=== PATIENT | female | born 1930 | race Two or more races ===

== ENCOUNTER 2017-11-07 11:35 | Observation (INO) | payer OTHER ==
--- NOTE | 2017-11-07 11:57 | PDOC ---
History of Present Illness - General History Source: Patient, Care Provider (HANDBAG OPERATOR at bedside), Family Exam Limitations: No Limitations, Dementia - History of Present Illness Initial Comments: 11/07/17 12:22 86-year-old female with history of psn-zrwxdwh-ywtydknpz diabetes and dementia at baseline presents brought in by daughter and home health aide via EMS for altered mental status this morning. Patient was in her baseline, had a normal conversation with her son last night, lives alone and was found this morning at 8 AM by her home health aide naked and with stool on her person, confused and feeling sleepy. Aide washed her up, the patient slept for about 2 hours, then awoke and was still not at her baseline so home health aide activated EMS. No recent falls or head injury, no history of recurring infections, has had very slight cough for about one to 2 weeks but nothing productive and without associated dyspnea or chest pain. Noted to be febrile on arrival to ED. Per daughter (at bedside), pt nearer to baseline now. <Rodrigo James - Last Filed: 11/07/17 14:18> <Luis Bledsoe - Last Filed: 11/07/17 16:17> - General Chief Complaint: Altered Mental Status Stated Complaint: Altered Mental Status Time Seen by Provider: 11/07/17 11:56 Past History - Past Medical History Hypercholesterolemia: Yes - Suicide/Smoking/Psychosocial Hx Smoking History: Never smoked Hx Alcohol Use: No Drug/Substance Use Hx: No <Rodrigo James - Last Filed: 11/07/17 14:18> <Luis Bledsoe - Last Filed: 11/07/17 16:17> - Past Medical History Allergies/Adverse Reactions: Allergies Allergy/AdvReac Type Severity Reaction Status Date / Time No Known Allergies Allergy Verified 11/07/17 12:12 Home Medications: Ambulatory Orders Ammonium Lactate 1 ml TP DAILY 03/15/16 Aspirin [ASA -] 81 mg PO DAILY 03/15/16 Calcium Carb/Vitamin D3/Vit K1 [Calcium + D Soft Chewable Tab] 1 each PO DAILY 03/15/16 Celecoxib [Celebrex] 200 mg PO DAILY 03/15/16 Gentamicin Sulfate [Gentak] 2.5 gm OP BID 03/15/16 Multivitamin [Poly-Vitamin] 1 tab PO DAILY 03/15/16 Pramosone 1%-1% Ointment 10 mg TP DAILY 03/15/16 Rosuvastatin Calcium [Crestor] 5 mg PO DAILY 03/15/16 Solifenacin Succinate [Vesicare -] 10 mg PO DAILY 03/15/16 Vitamin B Complex 1 each PO DAILY 03/15/16 Review of Systems - Review of Systems Constitutional: No: Chills, Fever Respiratory: Yes: Cough. No: Shortness of Breath, SOB with Exertion Cardiac (ROS): No: Chest Pain, Syncope ABD/GI: No: Diarrhea, Nausea, Vomiting : No: Dysuria Neurological: No: Headache, Tingling All Other Systems: Reviewed and Negative <Rodrigo James - Last Filed: 11/07/17 14:18> *Physical Exam - Physical Exam Comments: 11/07/17 12:35 oral temp 100.5 GENERAL: The patient is awake, alert, and following some commands but still confused, in no acute respiratory distress. Warm to touch. HEAD: Normal with no signs of trauma. EYES: PERRL, EOMI, sclera anicteric, conjunctiva clear with no pallor. ENT: oropharynx clear without exudates. Moist mucous membranes. NECK: Normal range of motion, supple without lymphadenopathy, JVD, or masses. LUNGS: Breath sounds equal, clear to auscultation bilaterally. No wheeze/ crackles. HEART: Regular rate and rhythm, normal S1 and S2 with 2/6 systolic ejection murmur. ABDOMEN: Soft/nontender/nondistended. BS wnl. No guarding or rebound. No palpable masses. No hepatosplenomegaly. EXTREMITIES: Normal range of motion, no edema. 2+ distal pulses. No cords, erythema, or tenderness. NEUROLOGICAL: Cranial nerves II through XII grossly intact. Moves all extremities with full strength. Normal speech, normal gait. PSYCH: Deferred. SKIN: Warm, Dry, no rashes or lesions noted. <Rodrigo James - Last Filed: 11/07/17 14:18> - Vital Signs Last Vital Signs Temp Pulse Resp BP Pulse Ox 100.5 F H 85 16 154/77 100 11/07/17 11:35 11/07/17 11:35 11/07/17 11:35 11/07/17 11:35 11/07/17 11:35 <Luis Bledsoe - Last Filed: 11/07/17 16:17> Heart Score/ECG Review #1 ECG reviewed & interpreted by me at: 13:23 General ECG Interpretation: Sinus Rhythm, Normal Rate (72), Normal Intervals ( qtc 435), No acute ischemic changes <Rodrigo James - Last Filed: 11/07/17 14:18> ED Treatment Course - LABORATORY CBC & Chemistry Diagram: 11/07/17 12:45 11/07/17 12:45 <Rodrigo James - Last Filed: 11/07/17 14:18> - LABORATORY CBC & Chemistry Diagram: 11/07/17 12:45 11/07/17 12:45 - ADDITIONAL ORDERS Additional order review: Laboratory Results 11/07/17 11/07/17 11/07/17 13:00 12:55 12:45 PT with INR 13.10 H INR 1.16 H PTT (Actin FS) 30.5 VBG pH POC VBG pCO2 POC VBG pO2 Mixed VBG HCO3 Sodium Potassium Chloride Carbon Dioxide Anion Gap BUN Creatinine Creat Clearance w eGFR Random Glucose Lactic Acid Calcium Total Bilirubin AST ALT Alkaline Phosphatase Troponin I Cancelled Total Protein Albumin Urine Color Yellow Urine Appearance Cloudy Urine pH 6.0 Ur Specific Foster 1.017 Urine Protein 1+ H Urine Glucose (UA) Negative Urine Ketones Negative Urine Blood Negative Urine Nitrite Negative Urine Bilirubin Negative Urine Urobilinogen Negative Ur Leukocyte Esterase 3+ H Urine WBC (Auto) 71 Urine RBC (Auto) 10 Ur Epithelial Cells Rare Urine Bacteria Rare 11/07/17 11/07/17 11/07/17 12:45 12:45 12:20 PT with INR INR PTT (Actin FS) VBG pH 7.40 POC VBG pCO2 44.4 POC VBG pO2 24.9 L Mixed VBG HCO3 26.9 H Sodium 136 Potassium 4.2 Chloride 101 Carbon Dioxide 26 Anion Gap 9 BUN 12 Creatinine 1.0 Creat Clearance w eGFR 52.69 Random Glucose 132 H Lactic Acid 1.8 Calcium 9.0 Total Bilirubin 0.6 AST 19 ALT 33 Alkaline Phosphatase 69 Troponin I < 0.02 Total Protein 7.7 Albumin 3.7 Urine Color Urine Appearance Urine pH Ur Specific Foster Urine Protein Urine Glucose (UA) Urine Ketones Urine Blood Urine Nitrite Urine Bilirubin Urine Urobilinogen Ur Leukocyte Esterase Urine WBC (Auto) Urine RBC (Auto) Ur Epithelial Cells Urine Bacteria 11/07/17 12:45 RBC 4.18 MCV 91.2 MCHC 33.7 RDW 13.2 MPV 10.0 Neutrophils % 78.1 Lymphocytes % 12.2 D Monocytes % 8.5 Eosinophils % 0.5 D Basophils % 0.7 - Medications Given in the ED: ED Medications Discontinued Medications Generic Name Dose Route Start Last Admin Trade Name Minerva PRN Reason Stop Dose Admin Acetaminophen 1,000 mg 11/07/17 12:20 11/07/17 13:20 Ofirmev Injection - IVPB 11/07/17 12:21 1,000 mg ONCE ONE Administration Sodium Chloride 500 mls @ 500 mls/hr 11/07/17 12:21 11/07/17 13:20 Normal Saline - IV 11/07/17 13:20 500 mls/hr ONCE ONE Administration <Luis Bledsoe - Last Filed: 11/07/17 16:17> Medical Decision Making - Medical Decision Making 11/07/17 12:40 86-year-old female with history of dementia presents with altered mental status this morning in the setting of fever. Likely early sepsis, no evidence of focal neurological process, will check CT head given patient was on her own overnight and the change in mental status occurred this morning. Sepsis protocol initiated Antipyretics, antibiotics as per findings CT head IV fluids Admission 11/07/17 13:28 No leukocytosis, chemistries are within normal limits, lactate pending, troponin negative. Urinalysis with 3+ leuk esterase and elevated white blood cells. We'll treat with ceftriaxone, chest x-ray with nonspecific findings, proceed with admission. 11/07/17 14:[address] head. Accepted for obs med/surg by Dr. Chavez (covering Innabi), signout given to Yfn SCHWARTZ. <Rodrigo James - Last Filed: 11/07/17 14:18> - Medical Decision Making Case discussed with Yfn Stephenson NP at 14:18. 11/07/17 16:[address] Impression: No definite interval change is identified in comparison to a prior CT exam of . Mild to moderate periventricular chronic microvascular ischemic changes are noted. <Luis Bledsoe - Last Filed: 11/07/17 16:17> *DC/Admit/Observation/Transfer - Discharge Dispostion Decision to Admit order: Yes <Rodrigo James - Last Filed: 11/07/17 14:18> - Attestations Scribe Attestion: Documentation prepared by Luis Bledsoe, acting as medical record librarian for Rodrigo James MD. <Luis Bledsoe - Last Filed: 11/07/17 16:17> Diagnosis at time of Disposition: Altered mental status Qualifiers: Altered mental status type: transient alteration of awareness Qualified Code(s) : R40.4 - Transient alteration of awareness Fever Qualifiers: Fever type: unspecified Qualified Code(s): R50.9 - Fever, unspecified UTI (urinary tract infection) Qualifiers: Urinary tract infection type: acute cystitis Hematuria presence: without hematuria Qualified Code(s): N30.00 - Acute cystitis without hematuria - Discharge Dispostion Condition at time of disposition: Fair
[2017-11-07] MEDS ORDERED: ACETAMINOPHEN 1000 MG/100 ML VIAL (NON FORMULARY) IVPB ONE (12:20)
[2017-11-07] MEDS ORDERED: SODIUM CHLORIDE 500 ML IV ONE (12:21)
[2017-11-07 12:54] LABS: BASO % 0.7 % (0-2.0); EOS % 0.5 % (0-4.5); HEMATOCRIT 38.1 % (32.4-45.2); HEMOGLOBIN 12.9 GM/dL (10.7-15.3); LYMPH % 12.2 % (8-40); MCH 30.8 pg (25.7-33.7); MCHC 33.7 g/dl (32.0-36.0); MEAN CELL VOLUME 91.2 fl (80-96); MONO % 8.5 % (3.8-10.2); NEUT % 78.1 % (42.8-82.8); PLATELET COUNT 217 K/MM3 (134-434); RBC 4.18 M/mm3 (3.60-5.2); RDW 13.2 % (11.6-15.6); WHITE BLOOD COUNT 9.9 K/mm3 (4.0-10.0)
[2017-11-07 13:01] LABS: VENOUS PC02 44.4 mmHg (38-52); VENOUS PH 7.4 (7.32-7.42); VENOUS PO2 24.9 mmHg (28-48)
[2017-11-07 13:01] LABS: URINE APPEARANCE CLOUDY; URINE BILIRUBIN NEGATIVE (<2.0 mg/dL); URINE COLOR YELLOW; URINE GLUCOSE (UA) NEGATIVE (NEGATIVE); URINE KETONE NEGATIVE (NEGATIVE); URINE NITRITE NEGATIVE (NEGATIVE); URINE UROBILINOGEN NEGATIVE mg/dL (0.2-1.0)
[2017-11-07 13:02] LABS: URINE LEUK ESTERASE 3+ (NEGATIVE); URINE PROTEIN 1+ (NEGATIVE)
[2017-11-07 13:05] LABS: EPI CELLS RARE /HPF (FEW); URINE BACTERIA RARE /hpf (NONE SEEN)
[2017-11-07 13:07] LABS: INR 1.16 (0.82-1.09); PROTHROMBIN TIME (PATIENT) 13.1 SEC (9.7-13.0)
[2017-11-07 13:09] LABS: ACTIVATED PTT 30.5 SECONDS (26.9-34.4)
[2017-11-07] MEDS ORDERED: ACETAMINOPHEN INJECTION 100 ML IVPB ONE (13:12)
[2017-11-07 13:19] LABS: ALBUMIN 3.7 g/dl (3.4-5.0); ANION GAP 9 (8-16); BLOOD UREA NITROGEN 12 mg/dL (7-18); CHLORIDE 101 mmol/L (98-107); CO2 26 mmol/L (21-32); GLUCOSE,RANDOM 132 mg/dL (74-106); POTASSIUM 4.2 mmol/L (3.5-5.1); SODIUM 136 mmol/L (136-145)
[2017-11-07 13:23] LABS: ALK PHOS 69 U/L (45-117); SGOT/AST 19 U/L (15-37); SGPT/ALT 33 U/L (12-78)
[2017-11-07 13:27] LABS: BILIRUBIN,TOTAL 0.6 mg/dL (0.2-1.0); TOT PROT 7.7 g/dl (6.4-8.2)
[2017-11-07] MEDS ORDERED: CEFTRIAXONE 1,000 MG in DEXTROSE 5%-WATER - 50 ML IVPB ONE (13:28)
[2017-11-07] MEDS ORDERED: ASPIRIN 81 MG CHEWABLE TABLETS ONE (15:40)
[2017-11-07] MEDS ORDERED: CEFTRIAXONE 1 GM/50 ML BAG ONE (15:41)
[2017-11-07] MEDS: ASPIRIN 81 MG CHEWABLE TABLETS PO SCH (15:49)
--- NOTE | 2017-11-07 16:21 | PN ---
Progress Note (short form) - Note Progress Note: ID Consult dictated UTI / possible sepsis secondary to UTI ? RLL pneumonia Toxic metabolic encephalopathy/ OBS NIDDM Pending sepsis work up empiric ceftriaxone
--- NOTE | 2017-11-07 17:03 | CONS ---
DATE OF CONSULTATION: DATE OF DICTATION: 11/07/2017 INFECTIOUS DISEASE CONSULTATION HISTORY OF PRESENT ILLNESS: The patient is an 86-year-old female, history of dementia and diabetes, evaluated for possible sepsis. History was obtained from the chart, as she cannot give a history secondary to her confusion. According to the notes, she was in her usual state of health on the evening prior to admission. On the morning of admission, November 07, 2017, she was found to be confused by the family. Apparently she had been disoriented and was found naked and soiled at home. She was brought to the emergency room where she was evaluated. Her course was complicated by low-grade fever. Cultures were obtained, and she was empirically treated with ceftriaxone. She denies any pain. On question, she denies any fever, chills, chest pain, shortness of breath, cough, sputum production. No dysuria or hematuria. No complaints of vomiting or diarrhea. PAST MEDICAL HISTORY: Positive for dementia and non-insulin dependent diabetes mellitus. ALLERGIES: No known allergies. MEDICATION: Include aspirin, Celebrex, Crestor, Vesicare. SOCIAL HISTORY: She lives at home with family members. She is a nonsmoker, nondrinker. SYSTEMS REVIEW: Neurologic: Positive for dementia. Cardiac: Negative chest pain or palpitations. Respiratory: Negative cough or sputum production. Gastrointestinal: Negative vomiting or diarrhea. Genitourinary: Negative for recent urinary tract infection. LABORATORY DATA: White count 9.9, 78 neutrophils, 12 lymphocytes, 8 monocytes, hematocrit 38.1, platelet count 217. BUN 12, creatinine 1.0. Urinalysis: 71 white cells, blood in urine cultures pending. Chest x-ray shows some increased markings at the right base. PHYSICAL EXAMINATION: General: She is awake but confused. She is in no acute distress. Vital signs: Temperature 100.5, blood pressure 154/77, pulse 88 and regular, respirations 16 per minute. HEENT: Sclerae anicteric. Poor dentition. Neck: Supple. Cardiovascular: Heart sounds S1, S2. Respiratory: Lungs diminished breath sounds at the bases bilaterally. Abdomen: Obese. Soft. Nontender. Extremities: Negative for edema. IMPRESSION: 1. Urinary tract infection, possible sepsis secondary to urinary tract infection. 2. Toxic metabolic encephalopathy. 3. Dementia. 4. Non-insulin dependent diabetes mellitus. Await sepsis workup. Empiric antibiotic coverage with ceftriaxone 2 g IV piggyback every 24 hours. Further recommendations pending sepsis workup. Aspiration precautions. Will follow. Thank you for the kind referral. BRIAN BARRETT M.D. [id number]
[2017-11-07] MEDS: MULTIVITAMINS (DAILY MVI) TABLET (FP) PO SCH (17:19)
[2017-11-07] MEDS: CELECOXIB 200 MG CAPSULE PO SCH (17:20)
[2017-11-07] MEDS ORDERED: HEPARIN NA (PORCINE) 5,000 UNITS/ML 1ML VIAL ONE (22:37)
[2017-11-07] MEDS: HEPARIN NA (PORCINE) 5,000 UNITS/ML 1ML VIAL SQ SCH (22:50)
[2017-11-07] MEDS: ROSUVASTATIN CA 5 MG TABLET (FP) PO SCH (22:50)
[2017-11-07] MEDS: GENTAMICIN 0.3% OPHTHALMIC OINTMENT 3.5 GM/TUBE OU SCH (22:50)
[2017-11-07 23:53] VITALS: BMI 26.2
[2017-11-08] MEDS: GENTAMICIN 0.3% OPHTHALMIC OINTMENT 3.5 GM/TUBE OU SCH ×2 (09:32→21:47)
--- NOTE | 2017-11-08 09:44 | EKG ---
Test Reason : Blood Pressure : / mmHG Vent. Rate : 072 BPM Atrial Rate : 072 BPM P-R Int : 000 ms QRS Dur : 072 ms QT Int : 398 ms P-R-T Axes : 000 -06 032 degrees QTc Int : 435 ms ACCELERATED JUNCTIONAL RHYTHM ABNORMAL ECG WHEN COMPARED WITH ECG OF 15-MAR-2016 10:45, JUNCTIONAL RHYTHM HAS REPLACED SINUS RHYTHM Confirmed by DINAH LOVE MD ([id number]) on 11/08/2017 9:44:00 AM Referred By: Confirmed By:DINAH LOVE MD
[2017-11-08] MEDS ORDERED: DEXTROSE 5%-WATER 100 ML IVPB ONE (10:10)
[2017-11-08] MEDS: MULTIVITAMINS (DAILY MVI) TABLET (FP) PO SCH (10:43)
[2017-11-08] MEDS: CELECOXIB 200 MG CAPSULE PO SCH (10:44)
[2017-11-08] MEDS: ASPIRIN 81 MG CHEWABLE TABLETS PO SCH (10:44)
[2017-11-08] MEDS: CEFTRIAXONE 2 GM in DEXTROSE 5%-WATER 100 ML IVPB SCH (10:44)
[2017-11-08] MEDS: HEPARIN NA (PORCINE) 5,000 UNITS/ML 1ML VIAL SQ SCH ×2 (10:44→21:48)
--- NOTE | 2017-11-08 11:33 | PN ---
Progress Note, Physician History of Present Illness: OOB in chair Offers no complaints Denies dysuria Urine described as cloudy, malodorous Pleasantly confused Temps down afebrile WBC WNL Urine c/s (-) BC no growth - Current Medication List Current Medications: Active Medications Aspirin (Asa -) 81 mg PO DAILY [facility] Last Admin: 11/08/17 10:44 Dose: 81 mg Celecoxib (Celebrex -) 200 mg PO DAILY [facility] Last Admin: 11/08/17 10:44 Dose: 200 mg Gentamicin Sulfate (Gentamicin 0.3% Eye Ointment -) 1 applic OU BID [facility] Last Admin: 11/07/17 22:50 Dose: 1 applic Heparin Sodium (Porcine) (Heparin -) 5,000 unit SQ BID [facility] Last Admin: 11/08/17 10:44 Dose: 5,000 unit Ceftriaxone Sodium 2 gm/ (Dextrose) 100 mls @ 200 mls/hr IVPB DAILY [facility]; Protocol Last Admin: 11/08/17 10:44 Dose: 200 mls/hr Multivitamins/Minerals/Vitamin C (Tab-A-Vit -) 1 tab PO DAILY [facility] Last Admin: 11/08/17 10:43 Dose: 1 tab Rosuvastatin Calcium (Crestor -) 5 mg PO HS [facility] Last Admin: 11/07/17 22:50 Dose: 5 mg - Objective Vital Signs: Vital Signs Temperature 98.5 F 11/08/17 06:00 Pulse Rate 71 11/08/17 06:00 Respiratory Rate 18 11/08/17 06:00 Blood Pressure 116/64 11/08/17 06:00 O2 Sat by Pulse Oximetry (%) 96 11/08/17 05:40 Constitutional: Yes: Obese Cardiovascular: Yes: Regular Rate and Rhythm, S1, S2 Respiratory: Yes: CTA Bilaterally Gastrointestinal: Yes: Normal Bowel Sounds, Soft, Abdomen, Obese. No: Tenderness Labs: CBC, BMP 11/07/17 12:45 11/07/17 12:45 INR, PTT INR 1.16 (0.82-1.09) H 11/07/17 13:00 Assessment/Plan UTI Toxic-metabolic encephalopathy ?OBS If stable po ceftin 500mg bid x 7d
--- NOTE | 2017-11-08 11:42 | HP ---
Admitting History and Physical - Primary Care Physician PCP: Juana Young I (Terri Chavez) - Admission Chief Complaint: AMS. UTI History of Present Illness: 86-year-old female with history of oux-vreyblr-gydljbpbh diabetes and dementia at baseline presents brought in by daughter and home health aide via EMS for altered mental status this morning. Patient was in her baseline, had a normal conversation with her son last night, lives alone and was found this morning at 8 AM by her home health aide naked and with stool on her person, confused and feeling sleepy. Aide washed her up, the patient slept for about 2 hours, then awoke and was still not at her baseline so home health aide activated EMS. No recent falls or head injury, no history of recurring infections, has had very slight cough for about one to 2 weeks but nothing productive and without associated dyspnea or chest pain. History Source: Family Member (daughter Margaret), Medical Record Limitations to Obtaining History: Clinical Condition, Poor Historian - Past Medical History PADDER CUSHION: Yes: Syncope Cardiovascular: Yes: HTN, Hyperlipdemia Endocrine: Yes: Diabetes Mellitus (type 2 DM) - Smoking History Smoking history: Never smoked Have you smoked in the past 12 months: No - Alcohol/Substance Use Hx Alcohol Use: No History of Substance Use: reports: None Home Medications - Allergies Allergies/Adverse Reactions: Allergies Allergy/AdvReac Type Severity Reaction Status Date / Time No Known Allergies Allergy Verified 11/07/17 12:12 - Home Medications Home Medications: Ambulatory Orders Ammonium Lactate 1 ml TP DAILY 03/15/16 Aspirin [ASA -] 81 mg PO DAILY 03/15/16 Calcium Carb/Vitamin D3/Vit K1 [Calcium + D Soft Chewable Tab] 1 each PO DAILY 03/15/16 Celecoxib [Celebrex] 200 mg PO DAILY 03/15/16 Gentamicin Sulfate [Gentak] 2.5 gm OP BID 03/15/16 Multivitamin [Poly-Vitamin] 1 tab PO DAILY 03/15/16 Pramosone 1%-1% Ointment 10 mg TP DAILY 03/15/16 Rosuvastatin Calcium [Crestor] 5 mg PO DAILY 03/15/16 Solifenacin Succinate [Vesicare -] 10 mg PO DAILY 03/15/16 Vitamin B Complex 1 each PO DAILY 03/15/16 Review of Systems - Review of Systems Constitutional: reports: No Symptoms Eyes: reports: No Symptoms HENT: reports: No Symptoms Neck: reports: No Symptoms Cardiovascular: reports: No Symptoms Respiratory: reports: No Symptoms Gastrointestinal: reports: No Symptoms Genitourinary: reports: No Symptoms Breasts: reports: No Symptoms Reported Musculoskeletal: reports: No Symptoms Integumentary: reports: No Symptoms Neurological: reports: Confusion Endocrine: reports: No Symptoms Hematology/Lymphatic: reports: No Symptoms Psychiatric: reports: No Symptoms Physical Examination Vital Signs: Vital Signs Temperature 98.5 F 11/08/17 06:00 Pulse Rate 71 11/08/17 06:00 Respiratory Rate 18 11/08/17 06:00 Blood Pressure 116/64 11/08/17 06:00 O2 Sat by Pulse Oximetry (%) 96 11/08/17 05:40 Constitutional: Yes: Well Nourished, No Distress, Calm Cardiovascular: Yes: Regular Rate and Rhythm Respiratory: Yes: Regular Gastrointestinal: Yes: Normal Bowel Sounds, Soft Musculoskeletal: Yes: WNL Extremities: Yes: WNL Edema: No Peripheral Pulses WNL: Yes Neurological: Yes: Alert, Pre-Existing Deficit Psychiatric: Yes: Alert Labs: CBC, BMP 11/07/17 12:45 11/07/17 12:45 Problem List - Problems (1) Altered mental status Assessment/Plan: -Improved as per daughter, but not back to baseline -It is unclear whether pt has underlying dementia, daughter states pt is forgetfull but has never been told that pt has Alzheimer's Code(s): R41.82 - ALTERED MENTAL STATUS, UNSPECIFIED Qualifiers: Altered mental status type: transient alteration of awareness Qualified Code(s): R40.4 - Transient alteration of awareness (2) Fever Assessment/Plan: -Afebrile this AM -Tylenol 650 mg po Q6H PRN for fever >100.0F Code(s): R50.9 - FEVER, UNSPECIFIED Qualifiers: Fever type: unspecified Qualified Code(s): R50.9 - Fever, unspecified (3) UTI (urinary tract infection) Assessment/Plan: -IV abx -UC no growth -ID on board Code(s): N39.0 - URINARY TRACT INFECTION, SITE NOT SPECIFIED Qualifiers: Urinary tract infection type: acute cystitis Hematuria presence: without hematuria Qualified Code(s): N30.00 - Acute cystitis without hematuria Assessment/Plan see problem list dvt prophylaxis If cleared by ID, will dc home in AM on PO abx
[2017-11-08 12:16] LABS: BASO % 0.9 % (0-2.0); EOS % 2.9 % (0-4.5); HEMATOCRIT 38.3 % (32.4-45.2); HEMOGLOBIN 12.8 GM/dL (10.7-15.3); LYMPH % 29.3 % (8-40); MCH 30.8 pg (25.7-33.7); MCHC 33.5 g/dl (32.0-36.0); MEAN CELL VOLUME 91.8 fl (80-96); MEAN PLT VOLUME 10.3 fl (7.5-11.1); MONO % 12.3 % (3.8-10.2); NEUT % 54.6 % (42.8-82.8); PLATELET COUNT 213 K/MM3 (134-434); RBC 4.17 M/mm3 (3.60-5.2); RDW 13.5 % (11.6-15.6); WHITE BLOOD COUNT 5.3 K/mm3 (4.0-10.0)
[2017-11-08 12:33] LABS: MAGNESIUM 1.8 mg/dL (1.8-2.4)
[2017-11-08] MEDS: ROSUVASTATIN CA 5 MG TABLET (FP) PO SCH (21:47)
[2017-11-09 08:56] LABS: ALBUMIN 3.2 g/dl (3.4-5.0); ALK PHOS 59 U/L (45-117); ANION GAP 9 (8-16); BILIRUBIN,TOTAL 0.4 mg/dL (0.2-1.0); BLOOD UREA NITROGEN 10 mg/dL (7-18); CALCIUM 8.6 mg/dL (8.5-10.1); CHLORIDE 103 mmol/L (98-107); CO2 26 mmol/L (21-32); CREATININE 0.8 mg/dL (0.55-1.02); GLUCOSE,RANDOM 174 mg/dL (74-106); POTASSIUM 4.6 mmol/L (3.5-5.1); SGOT/AST 20 U/L (15-37); SGPT/ALT 30 U/L (12-78); SODIUM 138 mmol/L (136-145); TOT PROT 6.8 g/dl (6.4-8.2)
[2017-11-09] MEDS ORDERED: DEXTROSE 5%-WATER 100 ML IVPB ONE (10:49)
--- NOTE | 2017-11-09 10:51 | PN ---
Progress Note, Physician Chief Complaint: AMS UTI History of Present Illness: NAD, sitting in a chair wants to go home alert and oriented - Current Medication List Current Medications: Active Medications Aspirin (Asa -) 81 mg PO DAILY [facility] Last Admin: 11/08/17 10:44 Dose: 81 mg Celecoxib (Celebrex -) 200 mg PO DAILY [facility] Last Admin: 11/08/17 10:44 Dose: 200 mg Gentamicin Sulfate (Gentamicin 0.3% Eye Ointment -) 1 applic OU BID [facility] Last Admin: 11/08/17 21:47 Dose: 1 applic Heparin Sodium (Porcine) (Heparin -) 5,000 unit SQ BID [facility] Last Admin: 11/08/17 21:48 Dose: 5,000 unit Ceftriaxone Sodium 2 gm/ (Dextrose) 100 mls @ 200 mls/hr IVPB DAILY [facility]; Protocol Last Admin: 11/08/17 10:44 Dose: 200 mls/hr Multivitamins/Minerals/Vitamin C (Tab-A-Vit -) 1 tab PO DAILY [facility] Last Admin: 11/08/17 10:43 Dose: 1 tab Rosuvastatin Calcium (Crestor -) 5 mg PO HS [facility] Last Admin: 11/08/17 21:47 Dose: 5 mg - Objective Vital Signs: Vital Signs Temperature 98.5 F 11/09/17 00:49 Pulse Rate 65 11/09/17 00:49 Respiratory Rate 18 11/09/17 00:49 Blood Pressure 124/60 11/09/17 00:49 O2 Sat by Pulse Oximetry (%) 95 11/08/17 22:00 Constitutional: Yes: Well Nourished, No Distress, Calm Cardiovascular: Yes: Regular Rate and Rhythm Respiratory: Yes: Regular Musculoskeletal: Yes: WNL Extremities: Yes: WNL Edema: No Peripheral Pulses WNL: Yes Neurological: Yes: Alert, Oriented Psychiatric: Yes: Alert, Oriented Labs: CBC, BMP 11/08/17 11:47 11/09/17 06:15 INR, PTT INR 1.16 (0.82-1.09) H 11/07/17 13:00 Problem List - Problems (1) Altered mental status Assessment/Plan: -back to her baseline Code(s): R41.82 - ALTERED MENTAL STATUS, UNSPECIFIED Qualifiers: Altered mental status type: transient alteration of awareness Qualified Code(s): R40.4 - Transient alteration of awareness (2) Fever Assessment/Plan: -Afebrile this AM -Tylenol 650 mg po Q6H PRN for fever >100.0F Code(s): R50.9 - FEVER, UNSPECIFIED Qualifiers: Fever type: unspecified Qualified Code(s): R50.9 - Fever, unspecified (3) UTI (urinary tract infection) Assessment/Plan: -IV abx---> ceftin 500 mg po BID x 7 days -UC no growth -ID on board Code(s): N39.0 - URINARY TRACT INFECTION, SITE NOT SPECIFIED Qualifiers: Urinary tract infection type: acute cystitis Hematuria presence: without hematuria Qualified Code(s): N30.00 - Acute cystitis without hematuria Assessment/Plan see problem list Spoke to daughter Margaret about discharge, in agreement.
[2017-11-09] MEDS: CEFTRIAXONE 2 GM in DEXTROSE 5%-WATER 100 ML IVPB SCH (10:56)
[2017-11-09] MEDS: MULTIVITAMINS (DAILY MVI) TABLET (FP) PO SCH (10:57)
[2017-11-09] MEDS: HEPARIN NA (PORCINE) 5,000 UNITS/ML 1ML VIAL SQ SCH ×3 (10:57→21:56)
[2017-11-09] MEDS: GENTAMICIN 0.3% OPHTHALMIC OINTMENT 3.5 GM/TUBE OU SCH ×2 (10:58→21:31)
[2017-11-09] MEDS: CELECOXIB 200 MG CAPSULE PO SCH (10:58)
[2017-11-09] MEDS: ASPIRIN 81 MG CHEWABLE TABLETS PO SCH (10:58)
--- NOTE | 2017-11-09 12:24 | DS ---
Physical Examination Vital Signs: Vital Signs Temperature 98.5 F 11/09/17 09:00 Pulse Rate 72 11/09/17 09:00 Respiratory Rate 18 11/09/17 09:00 Blood Pressure 141/65 11/09/17 09:00 O2 Sat by Pulse Oximetry (%) 95 11/08/17 22:00 Constitutional: Yes: Well Nourished, No Distress, Calm Gastrointestinal: Yes: Normal Bowel Sounds, Soft Musculoskeletal: Yes: WNL Extremities: Yes: WNL Edema: No Peripheral Pulses WNL: Yes Neurological: Yes: Alert, Oriented Psychiatric: Yes: Alert, Oriented Labs: CBC, BMP 11/08/17 11:47 11/09/17 06:15 Discharge Summary Reason For Visit: UTI,AMS Current Active Problems Altered mental status (Acute) Fever (Acute) UTI (urinary tract infection) (Acute) Hospital Course: 86-year-old female with history of iex-mjesgup-nfynbzqsu diabetes and dementia at baseline presents brought in by daughter and home health aide via EMS for altered mental status this morning. Patient was in her baseline, had a normal conversation with her son last night, lives alone and was found this morning at 8 AM by her home health aide naked and with stool on her person, confused and feeling sleepy. Aide washed her up, the patient slept for about 2 hours, then awoke and was still not at her baseline so home health aide activated EMS. No recent falls or head injury, no history of recurring infections, has had very slight cough for about one to 2 weeks but nothing productive and without associated dyspnea or chest pain. Condition: Stable - Instructions Referrals: Terri Chavez MD [Primary Care Provider] - Disposition: HOME - Home Medications Comprehensive Discharge Medication List: Ambulatory Orders Ammonium Lactate 1 ml TP DAILY 03/15/16 Aspirin [ASA -] 81 mg PO DAILY 03/15/16 Calcium Carb/Vitamin D3/Vit K1 [Calcium + D Soft Chewable Tab] 1 each PO DAILY 03/15/16 Celecoxib [Celebrex] 200 mg PO DAILY 03/15/16 Gentamicin Sulfate [Gentak] 2.5 gm OP BID 03/15/16 Multivitamin [Poly-Vitamin] 1 tab PO DAILY 03/15/16 Pramosone 1%-1% Ointment 10 mg TP DAILY 03/15/16 Rosuvastatin Calcium [Crestor] 5 mg PO DAILY 03/15/16 Solifenacin Succinate [Vesicare -] 10 mg PO DAILY 03/15/16 Vitamin B Complex 1 each PO DAILY 03/15/16 Multivitamins [Multivit ([facility] Formulary)] 1 tab PO DAILY tab 11/08/17 Cefuroxime Axetil [Ceftin -] 500 mg PO BID #14 tablet 11/09/17
[2017-11-09] MEDS ORDERED: PT OWN MED DRAWER 7, Y5N ONE (20:27)
[2017-11-09] MEDS: ROSUVASTATIN CA 5 MG TABLET (FP) PO SCH (21:30)
[2017-11-09] MEDS ORDERED: CEFUROXIME AXETIL 500 MG TABLET PO SCH (22:00)
[2017-11-10 05:36] VITALS: BP 146/84; PULSE 85; TEMP 98.2
== END 2017-11-10 07:04 | disposition home or self-care (01) ==
LOC: JER 11:35 → JERBED 14:20 → J7W 23:57
PROVIDERS: ADMIT Family Medicine; ATTEND Family Medicine
PROC: 3E03329 Introduction of Other Anti-infective into Peripheral Vein, Percutaneous Approach (ICD-10-PCS; principal; 2017-11-07)
PROC: 3E033NZ Introduction of Analgesics, Hypnotics, Sedatives into Peripheral Vein, Percutaneous Approach (ICD-10-PCS; 2017-11-07)
PROC: 3E0337Z Introduction of Electrolytic and Water Balance Substance into Peripheral Vein, Percutaneous Approach (ICD-10-PCS; 2017-11-07)
DX: N30.00 Acute cystitis without hematuria (principal); G92 Toxic encephalopathy; R40.4 Transient alteration of awareness; R50.9 Fever, unspecified; F03.90 Unspecified dementia, unspecified severity, without behavioral disturbance, psychotic disturbance, mood disturbance, and anxiety; E11.9 Type 2 diabetes mellitus without complications; Z79.82 Long term (current) use of aspirin
CPT/HCPCS: 36415; 70450-TC; 71045-TC-FY; 80053; 81003; 81015; 82607; 82803; 82962; 83036; 83605; 83735; 84439; 84443; 84484; 85025; 85610; 85730; 87040; 87086; 93005; 93010; 96361; 96365; 96375; 97116-GP; 97161-GP; 99283-25; G0378; J0131; J1644

== ENCOUNTER 2017-11-14 13:29 | Inpatient (IN) | payer OTHER ==
--- NOTE | 2017-11-14 13:39 | PDOC ---
History of Present Illness - General Chief Complaint: Altered Mental Status Stated Complaint: Altered Mental Status Time Seen by Provider: 11/14/17 13:38 - History of Present Illness Initial Comments: 11/14/17 13:39 Ms. 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 Patient was recently admitted 11/07-11/09 for similar presentation and found to have UTI for which she was treated with Cefuroxime (still undergoing treatment). Patient has no focal complaints and is alert however will not respond or responds to aids questions with a laugh only. Allergies: NKDA Past History - Past Medical History Allergies/Adverse Reactions: Allergies Allergy/AdvReac Type Severity Reaction Status Date / Time No Known Allergies Allergy Verified 11/14/17 13:42 Home Medications: Ambulatory Orders Ammonium Lactate 1 ml TP DAILY 03/15/16 Aspirin [ASA -] 81 mg PO DAILY 03/15/16 Calcium Carb/Vitamin D3/Vit K1 [Calcium + D Soft Chewable Tab] 1 each PO DAILY 03/15/16 Celecoxib [Celebrex] 200 mg PO DAILY 03/15/16 Gentamicin Sulfate [Gentak] 2.5 gm OP BID 03/15/16 Multivitamin [Poly-Vitamin] 1 tab PO DAILY 03/15/16 Pramosone 1%-1% Ointment 10 mg TP DAILY 03/15/16 Rosuvastatin Calcium [Crestor] 5 mg PO DAILY 03/15/16 Solifenacin Succinate [Vesicare -] 10 mg PO DAILY 03/15/16 Vitamin B Complex 1 each PO DAILY 03/15/16 Multivitamins [Multivit ([facility] Formul[facility])] 1 tab PO DAILY tab 11/08/17 Cefuroxime Axetil [Ceftin -] 500 mg PO BID #14 tablet 11/09/17 COPD: No Dementia: Yes Hypercholesterolemia: Yes - Suicide/Smoking/Psychosocial Hx Smoking History: Never smoked Have you smoked in the past 12 months: No Hx Alcohol Use: No Drug/Substance Use Hx: No Substance Use Type: None Review of Systems - Review of Systems Comments:: 11/14/17 13:39 Unable to obtain further. *Physical Exam - Physical Exam Comments: 11/14/17 13:39 GENERAL: Awake, altered, in no acute distress HEAD: No signs of trauma, normocephalic, atraumatic EYES: PERRLA, EOMI, sclera anicteric, conjunctiva clear ENT: Auricles normal inspection, hearing grossly normal, nares patent, oropharynx clear without exudates. Moist mucosa NECK: Normal ROM, supple, no lymphadenopathy, JVD, or masses LUNGS: No distress, speaks full sentences, clear to auscultation bilaterally HEART: Regular rate and rhythm, normal S1 and S2, no murmurs, rubs or gallops, peripheral pulses normal and equal bilaterally. ABDOMEN: Soft, nontender, normoactive bowel sounds. No guarding, no rebound. No masses EXTREMITIES: Normal inspection, Normal range of motion, no edema. No clubbing or cyanosis. NEUROLOGICAL: +Unable to assess. SKIN: Warm, Dry, normal turgor, no rashes or lesions noted. ED Treatment Course - LABORATORY CBC & Chemistry Diagram: 11/14/17 15:38 11/14/17 14:17 Medical Decision Making - Medical Decision Making 11/14/17 14:26 Ms. Constantino is an 86 yo female w/ pmh as described who presents for evaluation of altered mental status. Sepsis workup started as source of AMS unknown. 11/14/17 16:22 Patient labs grossly wnl. Cause of AMS unknown at this time. PCP paged for admission for further evaluation. 11/14/17 16:35 Discussed with MAGNETIC RESONANCE IMAGING COORDINATOR of Dr. Chavez. Will admit for evaluation. *DC/Admit/Observation/Transfer Diagnosis at time of Disposition: Altered mental status Qualifiers: Altered mental status type: unspecified Qualified Code(s): R41.82 - Altered mental status, unspecified - Discharge Dispostion Decision to Admit order: Yes - Referrals Referrals: Treri Chavez MD [Primary Care Provider] - - Patient Instructions - Post Discharge Activity
[2017-11-14 14:39] LABS: VENOUS PC02 31.7 mmHg (38-52); VENOUS PH 7.44 (7.32-7.42)
[2017-11-14 14:40] LABS: CHLORIDE 104 mmol/L (98-107); POTASSIUM 4.8 mmol/L (3.5-5.1); SODIUM 137 mmol/L (136-145)
--- NOTE | 2017-11-14 14:43 | PDOC ---
Attending Attestation - Resident Resident Name: EricangelanealChava - ED Attending Attestation I have performed the following: I have examined & evaluated the patient, The case was reviewed & discussed with the resident, I agree w/resident's findings & plan - HPI HPI: 11/14/17 14:40 86y/o F presents with altered mental status, not recognizing family and not speaking. Almost identical admission last week in setting of UTI but urine cultures negative. She was treated with abx and improved, but worsened again over past 24h. - Physicial Exam PE: 11/14/17 14:42 VSS alert and following commands, nad not speaking, atraumatic s1s2 rrr, ctab abd soft neuro nonfocal - Medical Decision Making 11/14/17 14:42 86-year-old female returns to the emergency department with altered mental status/lethargy, recent UTI though urine cultures negative. Afebrile here with normal vital signs, no evidence of trauma and neurological exam is nonfocal. Question metabolic/infectious, question dementia, less likely acute ischemic neurological event. Labs, urinalysis EKG, chest x-ray Likely admission, may need extended services at home or placement
--- NOTE | 2017-11-14 14:51 | EKG ---
Test Reason : Blood Pressure : / mmHG Vent. Rate : 082 BPM Atrial Rate : 082 BPM P-R Int : 170 ms QRS Dur : 078 ms QT Int : 382 ms P-R-T Axes : 036 -12 039 degrees QTc Int : 446 ms NORMAL SINUS RHYTHM MINIMAL VOLTAGE CRITERIA FOR LVH, MAY BE NORMAL VARIANT BORDERLINE ECG Confirmed by MD Gerard, Cornel ([id number]) on 11/14/2017 2:50:44 PM Referred By: Confirmed By:Cornel Gee MD
[2017-11-14 15:10] LABS: ALBUMIN 3.7 g/dl (3.4-5.0); ALK PHOS 60 U/L (45-117); ANION GAP 10 (8-16); BILIRUBIN,TOTAL 0.6 mg/dL (0.2-1.0); BLOOD UREA NITROGEN 18 mg/dL (7-18); CALCIUM 9.1 mg/dL (8.5-10.1); CO2 24 mmol/L (21-32); CREATININE 1.1 mg/dL (0.55-1.02); GLUCOSE,RANDOM 115 mg/dL (74-106); SGOT/AST 25 U/L (15-37); SGPT/ALT 50 U/L (12-78); TOT PROT 7.4 g/dl (6.4-8.2)
[2017-11-14 16:02] LABS: URINE APPEARANCE CLEAR; URINE BILIRUBIN NEGATIVE (<2.0 mg/dL); URINE COLOR YELLOW; URINE GLUCOSE (UA) NEGATIVE (NEGATIVE); URINE KETONE NEGATIVE (NEGATIVE); URINE LEUK ESTERASE NEGATIVE (NEGATIVE); URINE NITRITE NEGATIVE (NEGATIVE); URINE PROTEIN NEGATIVE (NEGATIVE); URINE UROBILINOGEN NEGATIVE mg/dL (0.2-1.0)
[2017-11-14 16:03] LABS: BASO % 0.6 % (0-2.0); EOS % 2.1 % (0-4.5); HEMATOCRIT 40.4 % (32.4-45.2); HEMOGLOBIN 13.4 GM/dL (10.7-15.3); LYMPH % 23.2 % (8-40); MCH 30.6 pg (25.7-33.7); MCHC 33.1 g/dl (32.0-36.0); MEAN CELL VOLUME 92.5 fl (80-96); MONO % 10.1 % (3.8-10.2); PLATELET COUNT 234 K/MM3 (134-434); RBC 4.37 M/mm3 (3.60-5.2); RDW 13.3 % (11.6-15.6); WHITE BLOOD COUNT 7.6 K/mm3 (4.0-10.0)
[2017-11-14 16:15] LABS: INR 1.13 (0.82-1.09); PROTHROMBIN TIME (PATIENT) 12.8 SEC (9.7-13.0)
[2017-11-14 16:18] LABS: ACTIVATED PTT 32.8 SECONDS (25.2-36.5)
[2017-11-14] MEDS ORDERED: SODIUM CHLORIDE 1,000 ML IV STA (16:18)
[2017-11-14] MEDS ORDERED: ROSUVASTATIN CA 5 MG TABLET (FP) PO SCH (22:00)
[2017-11-15] MEDS ORDERED: PT OWN MED DRAWER 7, Y5N ONE (09:24)
--- NOTE | 2017-11-15 09:56 | CONSULT ---
Consult - text type - Consultation Consultation Note: Neurology History of Present Illness Ms. 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 Patient was recently admitted 11/07-11/09 for similar presentation and found to have UTI for which she was treated with Cefuroxime (still undergoing treatment). Patient has no focal complaints but not answering questions appropriately. Is awake and alert and interactive but not coherent. Did not have imaging of head yet, will order CT head to evaluate. Past History - Past Medical History Allergies/Adverse Reactions: Allergies Allergy/AdvReac Type Severity Reaction Status Date / Time No Known Allergies Allergy Verified 11/14/17 13:42 Home Medications: Ambulatory Orders Ammonium Lactate 1 ml TP DAILY 03/15/16 Aspirin [ASA -] 81 mg PO DAILY 03/15/16 Calcium Carb/Vitamin D3/Vit K1 [Calcium + D Soft Chewable Tab] 1 each PO DAILY 03/15/16 Celecoxib [Celebrex] 200 mg PO DAILY 03/15/16 Gentamicin Sulfate [Gentak] 2.5 gm OP BID 03/15/16 Multivitamin [Poly-Vitamin] 1 tab PO DAILY 03/15/16 Pramosone 1%-1% Ointment 10 mg TP DAILY 03/15/16 Rosuvastatin Calcium [Crestor] 5 mg PO DAILY 03/15/16 Solifenacin Succinate [Vesicare -] 10 mg PO DAILY 03/15/16 Vitamin B Complex 1 each PO DAILY 03/15/16 Multivitamins [Multivit ([facility] Form[facility])] 1 tab PO DAILY tab 11/08/17 Cefuroxime Axetil [Ceftin -] 500 mg PO BID #14 tablet 11/09/17 COPD: No Dementia: Yes Hypercholesterolemia: Yes - Suicide/Smoking/Psychosocial Hx Smoking History: Never smoked Have you smoked in the past 12 months: No Hx Alcohol Use: No Drug/Substance Use Hx: No Substance Use Type: None Review of Systems Unable to obtain further. *Physical Exam GENERAL: Awake, altered, in no acute distress HEAD: No signs of trauma, normocephalic, atraumatic EYES: PERRLA, EOMI, sclera anicteric, conjunctiva clear ENT: Auricles normal inspection, hearing grossly normal, nares patent, oropharynx clear without exudates. Moist mucosa NECK: Normal ROM, supple, no lymphadenopathy, JVD, or masses LUNGS: No distress, speaks full sentences, clear to auscultation bilaterally HEART: Regular rate and rhythm, normal S1 and S2, no murmurs, rubs or gallops, peripheral pulses normal and equal bilaterally. ABDOMEN: Soft, nontender, normoactive bowel sounds. No guarding, no rebound. No masses EXTREMITIES: Normal inspection, Normal range of motion, no edema. No clubbing or cyanosis. NEUROLOGICAL: CN intact, moves extremities equally, sensory intact, gait deferred SKIN: Warm, Dry, normal turgor, no rashes or lesions noted. CBCD WBC 7.6 K/mm3 (4.0-10.0) D 11/14/17 15:38 RBC 4.37 M/mm3 (3.60-5.2) 11/14/17 15:38 Hgb 13.4 GM/dL (10.7-15.3) 11/14/17 15:38 Hct 40.4 % (32.4-45.2) 11/14/17 15:38 MCV 92.5 fl (80-96) 11/14/17 15:38 MCHC 33.1 g/dl (32.0-36.0) 11/14/17 15:38 RDW 13.3 % (11.6-15.6) 11/14/17 15:38 Plt Count 234 K/MM3 (134-434) 11/14/17 15:38 MPV 10.0 fl (7.5-11.1) 11/14/17 15:38 CMP Sodium 137 mmol/L (136-145) 11/14/17 14:17 Potassium 4.8 mmol/L (3.5-5.1) 11/14/17 14:17 Chloride 104 mmol/L (98-107) 11/14/17 14:17 Carbon Dioxide 24 mmol/L (21-32) 11/14/17 14:17 Anion Gap 10 (8-16) 11/14/17 14:17 BUN 18 mg/dL (7-18) 11/14/17 14:17 Creatinine 1.1 mg/dL (0.55-1.02) H 11/14/17 14:17 Creat Clearance w eGFR 47.21 (>60) 11/14/17 14:17 Random Glucose 115 mg/dL (74-106) H 11/14/17 14:17 Calcium 9.1 mg/dL (8.5-10.1) 11/14/17 14:17 Total Bilirubin 0.6 mg/dL (0.2-1.0) D 11/14/17 14:17 AST 25 U/L (15-37) 11/14/17 14:17 ALT 50 U/L (12-78) 11/14/17 14:17 Alkaline Phosphatase 60 U/L (45-117) 11/14/17 14:17 Total Protein 7.4 g/dl (6.4-8.2) 11/14/17 14:17 Albumin 3.7 g/dl (3.4-5.0) 11/14/17 14:17 CARDIAC ENZYMES Troponin I < 0.02 ng/ml (0.00-0.05) 11/14/17 14:17 CT head ordered Medical Decision Making Ms. 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 Patient was recently admitted 11/07-11/09 for similar presentation and found to have UTI for which she was treated with Cefuroxime (still undergoing treatment). Patient has no focal complaints but not answering questions appropriately. Is awake and alert and interactive but not coherent. Did not have imaging of head yet, will order CT head to evaluate. Possibly toxic metabolic in setting of infection. Continue medical workup, monitor glucose, maintain eugylcemic range. Monitor infection, treat underlying etiology. COntinue hydration, close monitoring.
[2017-11-15] MEDS ORDERED: CELECOXIB 200 MG CAPSULE PO SCH (10:00)
[2017-11-15] MEDS ORDERED: MULTIVITAMINS (DAILY MVI) TABLET (FP) PO SCH (10:00)
[2017-11-15] MEDS ORDERED: ASPIRIN 81 MG CHEWABLE TABLETS PO SCH (10:00)
--- NOTE | 2017-11-15 11:00 | HP ---
Admitting History and Physical - Primary Care Physician PCP: Juana Young I (Terri Chavez) - Admission Chief Complaint: AMS History of Present Illness: Ms. 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 Patient was recently admitted 11/07-11/09 for similar presentation and found to have UTI for which she was treated with Cefuroxime (still undergoing treatment). Patient has no focal complaints and is alert however will not respond or responds to aids questions with a laugh only. She was seen last week for similar complaints, Her Head CT was negative. Her UC was negative for UTI but she responded to IV rocephin last admission. Her UA is Negative, UC pending Labs unremarkable Seen by Neurology Repeat CT head and MRI brain is pending. 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 Cardiovascular: Yes: HTN, Hyperlipdemia Endocrine: Yes: Diabetes Mellitus (type 2 DM) - Smoking History Smoking history: Never smoked Have you smoked in the past 12 months: No - Alcohol/Substance Use Hx Alcohol Use: No History of Substance Use: reports: None Home Medications - Allergies Allergies/Adverse Reactions: Allergies Allergy/AdvReac Type Severity Reaction Status Date / Time No Known Allergies Allergy Verified 11/14/17 13:42 - Home Medications Home Medications: Ambulatory Orders Ammonium Lactate 1 ml TP DAILY 03/15/16 Aspirin [ASA -] 81 mg PO DAILY 03/15/16 Calcium Carb/Vitamin D3/Vit K1 [Calcium + D Soft Chewable Tab] 1 each PO DAILY 03/15/16 Celecoxib [Celebrex] 200 mg PO DAILY 03/15/16 Gentamicin Sulfate [Gentak] 2.5 gm OP BID 03/15/16 Multivitamin [Poly-Vitamin] 1 tab PO DAILY 03/15/16 Rosuvastatin Calcium [Crestor] 5 mg PO DAILY 03/15/16 Solifenacin Succinate [Vesicare -] 10 mg PO DAILY 03/15/16 Vitamin B Complex 1 each PO DAILY 03/15/16 Multivitamins [Multivit ([facility] Formul[facility])] 1 tab PO DAILY tab 11/08/17 Cefuroxime Axetil [Ceftin -] 500 mg PO BID #14 tablet 11/09/17 Review of Systems - Review of Systems Constitutional: reports: No Symptoms Eyes: reports: No Symptoms HENT: reports: No Symptoms Neck: reports: No Symptoms Cardiovascular: reports: No Symptoms Respiratory: reports: No Symptoms Gastrointestinal: reports: No Symptoms Genitourinary: reports: No Symptoms Breasts: reports: No Symptoms Reported Musculoskeletal: reports: No Symptoms Integumentary: reports: No Symptoms Neurological: reports: Confusion Endocrine: reports: No Symptoms Hematology/Lymphatic: reports: No Symptoms Psychiatric: reports: No Symptoms Physical Examination Vital Signs: Vital Signs Temperature 97.8 F 11/15/17 05:57 Pulse Rate 72 11/15/17 05:57 Respiratory Rate 18 11/15/17 05:57 Blood Pressure 150/75 11/15/17 05:57 O2 Sat by Pulse Oximetry (%) 97 11/15/17 05:57 Constitutional: Yes: Well Nourished, No Distress, Calm Cardiovascular: Yes: Regular Rate and Rhythm Respiratory: Yes: Regular Gastrointestinal: Yes: Normal Bowel Sounds, Soft Musculoskeletal: Yes: Muscle Weakness Edema: No Peripheral Pulses WNL: Yes Neurological: Yes: Alert, Confusion Psychiatric: Yes: Alert Labs: CBC, BMP 11/14/17 15:38 11/14/17 14:17 Problem List - Problems (1) Altered mental status Assessment/Plan: -Unable to answer questions appropriately -UA negative -UC/BC pending -Afebrile -CT heand and MRI brain pending -Bladder scan to see any urinary retention -Not sure if she had been using vesicare at home---> causing urinary retention? 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
[2017-11-15] MEDS: HEPARIN NA (PORCINE) 5,000 UNITS/ML 1ML VIAL SQ SCH (21:59)
[2017-11-15] MEDS: ROSUVASTATIN CA 10 MG TABLET (FP) PO SCH (22:00)
[2017-11-15] MEDS: ASPIRIN/DIPYRIDAMOLE 25 MG/200 MG CAPSULE (FP) PO SCH (22:00)
[2017-11-16] MEDS: HEPARIN NA (PORCINE) 5,000 UNITS/ML 1ML VIAL SQ SCH ×3 (05:21→21:45)
[2017-11-16 06:59] LABS: BASO % 0.6 % (0-2.0); EOS % 3.4 % (0-4.5); HEMATOCRIT 38.8 % (32.4-45.2); HEMOGLOBIN 13.2 GM/dL (10.7-15.3); LYMPH % 23.3 % (8-40); MEAN CELL VOLUME 91.1 fl (80-96); MEAN PLT VOLUME 10.1 fl (7.5-11.1); MONO % 11.4 % (3.8-10.2); NEUT % 61.3 % (42.8-82.8); PLATELET COUNT 224 K/MM3 (134-434); RBC 4.26 M/mm3 (3.60-5.2); RDW 12.9 % (11.6-15.6); WHITE BLOOD COUNT 6.5 K/mm3 (4.0-10.0)
[2017-11-16 08:40] LABS: CHLORIDE 103 mmol/L (98-107); POTASSIUM 4.2 mmol/L (3.5-5.1); SODIUM 138 mmol/L (136-145)
[2017-11-16 09:00] LABS: ALBUMIN 3.6 g/dl (3.4-5.0); ALK PHOS 60 U/L (45-117); ANION GAP 12 (8-16); BILIRUBIN,TOTAL 0.7 mg/dL (0.2-1.0); BLOOD UREA NITROGEN 13 mg/dL (7-18); CALCIUM 8.9 mg/dL (8.5-10.1); CHOLESTEROL 133 mg/dL (50-200); CO2 23 mmol/L (21-32); CREATININE 0.8 mg/dL (0.55-1.02); GLUCOSE,RANDOM 145 mg/dL (74-106); HDL CHOLESTEROL 40 mg/dL (40-60); SGOT/AST 28 U/L (15-37); SGPT/ALT 44 U/L (12-78); TOT PROT 7.4 g/dl (6.4-8.2); TRIGLYCERIDES 129 mg/dL (35-160)
--- NOTE | 2017-11-16 09:06 | PN ---
Progress Note (short form) - Note Progress Note: Neurology History of Present Illness Ms. 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 Patient was recently admitted 11/07-11/09 for similar presentation and found to have UTI for which she was treated with Cefuroxime (still undergoing treatment). She did not appear to have focal deficits but with aphasia. Completed CT head yesterday and MRI brain with large size CVA noted, temporal, parietal and frontal. Discussed with nurse. Switched ASA to aggrenox. Increased statin. Transfered to stroke unit recommended. Carotid Doppler and echo ordered. Telemetry monitoring. Cardiology consult recommended, possibly embolic given size and location. Not in TPA window. Discussed with primary as well. At bedside with immigration case manager today, probably will need rehab. Active Medications Dipyridamole/Aspirin (Aggrenox -) 1 combo PO BID [facility] Last Admin: 11/15/17 22:00 Dose: Not Given Heparin Sodium (Porcine) (Heparin -) 5,000 unit SQ TID [facility] Last Admin: 11/16/17 05:21 Dose: 5,000 unit Multivitamins/Minerals/Vitamin C (Tab-A-Vit -) 1 tab PO DAILY [facility] Rosuvastatin Calcium (Crestor -) 10 mg PO HS [facility] Last Admin: 11/15/17 22:00 Dose: Not Given *Physical Exam Vital Signs Temperature 98.8 F 11/16/17 05:42 Pulse Rate 70 11/16/17 05:42 Respiratory Rate 18 11/16/17 05:42 Blood Pressure 132/68 11/16/17 05:42 O2 Sat by Pulse Oximetry (%) 95 11/15/17 21:00 GENERAL: Awake, altered, in no acute distress HEAD: No signs of trauma, normocephalic, atraumatic EYES: PERRLA, EOMI, sclera anicteric, conjunctiva clear ENT: Auricles normal inspection, hearing grossly normal, nares patent, oropharynx clear without exudates. Moist mucosa NECK: Normal ROM, supple, no lymphadenopathy, JVD, or masses LUNGS: No distress, speaks full sentences, clear to auscultation bilaterally HEART: Regular rate and rhythm, normal S1 and S2, no murmurs, rubs or gallops, peripheral pulses normal and equal bilaterally. ABDOMEN: Soft, nontender, normoactive bowel sounds. No guarding, no rebound. No masses EXTREMITIES: Normal inspection, Normal range of motion, no edema. No clubbing or cyanosis. NEUROLOGICAL: Aphasia noted, moves extremities equally, sensory intact, not following full commands, gait deferred SKIN: Warm, Dry, normal turgor, no rashes or lesions noted. CBCD WBC 6.5 K/mm3 (4.0-10.0) 11/16/17 06:00 RBC 4.26 M/mm3 (3.60-5.2) 11/16/17 06:00 Hgb 13.2 GM/dL (10.7-15.3) 11/16/17 06:00 Hct 38.8 % (32.4-45.2) 11/16/17 06:00 MCV 91.1 fl (80-96) 11/16/17 06:00 MCHC 34.0 g/dl (32.0-36.0) 11/16/17 06:00 RDW 12.9 % (11.6-15.6) 11/16/17 06:00 Plt Count 224 K/MM3 (134-434) 11/16/17 06:00 MPV 10.1 fl (7.5-11.1) 11/16/17 06:00 CMP Sodium 138 mmol/L (136-145) 11/16/17 06:00 Potassium 4.2 mmol/L (3.5-5.1) 11/16/17 06:00 Chloride 103 mmol/L (98-107) 11/16/17 06:00 Carbon Dioxide 23 mmol/L (21-32) 11/16/17 06:00 Anion Gap 12 (8-16) 11/16/17 06:00 BUN 13 mg/dL (7-18) 11/16/17 06:00 Creatinine 0.8 mg/dL (0.55-1.02) 11/16/17 06:00 Creat Clearance w eGFR > 60 (>60) 11/16/17 06:00 Random Glucose 145 mg/dL (74-106) H 11/16/17 06:00 Calcium 8.9 mg/dL (8.5-10.1) 11/16/17 06:00 Total Bilirubin 0.7 mg/dL (0.2-1.0) 11/16/17 06:00 AST 28 U/L (15-37) 11/16/17 06:00 ALT 44 U/L (12-78) 11/16/17 06:00 Alkaline Phosphatase 60 U/L (45-117) 11/16/17 06:00 Total Protein 7.4 g/dl (6.4-8.2) 11/16/17 06:00 Albumin 3.6 g/dl (3.4-5.0) 11/16/17 06:00 CARDIAC ENZYMES Troponin I < 0.02 ng/ml (0.00-0.05) 11/14/17 14:17 CT head, MRI brain reviewed Medical Decision Making Ms. 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 Patient was recently admitted 11/07-11/09 for similar presentation and found to have UTI for which she was treated with Cefuroxime (still undergoing treatment). MRI brain reviewed Ct head reviewed Carotid Doppler Echo Cardiology evaluation Monitor blood pressure, goal <160/90 for now, <130/80 as outpatient ASA switched to Aggernox LDL pending, continue statin PT/OT Rehab placement DVT ppx
--- NOTE | 2017-11-16 10:27 | CON.CARD ---
Consult Consult Specialty:: Cardiology Referred by:: Juana Young MD Reason for Consultation:: Acute stroke - History of Present Illness Chief Complaint: Altered mental status History of Present Illness: Patient is an 85 year old female [place] with underlying history of type 2 diabetes mellitus, borderline hypertension, hypercholesterolemia, neurocradiogenic syncope, dementia referred for altered sensorium worse than baseline. Patient was recently admitted 11/07-11/09 for similar presentation and found to have UTI for which she was treated with Cefuroxime (still undergoing treatment). She does appear to have focal deficits, is awake and alert and interactive, but not coherent and has expressive aphasia. Completed CT head yesterday and MRI brain with large size CVA noted, temporal, parietal and frontal. Switched ASA to aggrenox. Increased statin. Transfered to stroke unit recommended. Carotid Doppler and echo ordered. Telemetry monitoring, holter ordered. Cardiology consult requested, possibly embolic given size and location. Not in TPA window, probably will need rehab. 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 Cardio/Vascular: Yes: HTN, Hyperlipdemia Endocrine: Yes: Diabetes Mellitus (type 2 DM) - Alcohol/Substance Use Hx Alcohol Use: No History of Substance Use: reports: None - Smoking History Smoking history: Never smoked Have you smoked in the past 12 months: No Home Medications - Allergies Allergies/Adverse Reactions: Allergies Allergy/AdvReac Type Severity Reaction Status Date / Time No Known Allergies Allergy Verified 11/14/17 13:42 - Home Medications Home Medications: Ambulatory Orders Ammonium Lactate 1 ml TP DAILY 03/15/16 Aspirin [ASA -] 81 mg PO DAILY 03/15/16 Calcium Carb/Vitamin D3/Vit K1 [Calcium + D Soft Chewable Tab] 1 each PO DAILY 03/15/16 Celecoxib [Celebrex] 200 mg PO DAILY 03/15/16 Gentamicin Sulfate [Gentak] 2.5 gm OP BID 03/15/16 Multivitamin [Poly-Vitamin] 1 tab PO DAILY 03/15/16 Rosuvastatin Calcium [Crestor] 5 mg PO DAILY 03/15/16 Solifenacin Succinate [Vesicare -] 10 mg PO DAILY 03/15/16 Vitamin B Complex 1 each PO DAILY 03/15/16 Multivitamins [Multivit ([facility] Formul[facility])] 1 tab PO DAILY tab 11/08/17 Cefuroxime Axetil [Ceftin -] 500 mg PO BID #14 tablet 11/09/17 Review of Systems Unable to obtain ROS, reason: Expressive aphasia - Review of Systems Neurological: reports: Change in Speech Vital Signs: Vital Signs Temperature 98.8 F 11/16/17 05:42 Pulse Rate 70 11/16/17 05:42 Respiratory Rate 18 11/16/17 05:42 Blood Pressure 132/68 11/16/17 05:42 O2 Sat by Pulse Oximetry (%) 95 11/15/17 21:00 Constitutional: Yes: No Distress, Calm Neck: Yes: Supple Respiratory: Yes: Regular, CTA Bilaterally Gastrointestinal: Yes: Normal Bowel Sounds, Soft Cardiovascular: Yes: Regular Rate and Rhythm JVD: No Carotid Bruit: No Heart Sounds: Yes: S1, S2 Edema: No - Other Data Labs, Other Data: CBC, BMP 11/16/17 06:00 11/16/17 06:00 INR, PTT INR 1.13 (0.82-1.09) 11/14/17 15:38 NSR @ 82 min criteria LVH Ejection Fraction %: LVEF > or = 40 % Imaging - Results Chest X-ray: Report Reviewed (NAD) Problem List - Problems (1) Acute ischemic stroke Code(s): I63.9 - CEREBRAL INFARCTION, UNSPECIFIED (2) HTN (hypertension) Code(s): I10 - ESSENTIAL (PRIMARY) HYPERTENSION Qualifiers: Hypertension type: essential hypertension Qualified Code(s): I10 - Essential (primary) hypertension (3) Hypercholesterolemia Code(s): E78.0 - PURE HYPERCHOLESTEROLEMIA * DO NOT USE * (4) Expressive aphasia Code(s): R47.01 - APHASIA Assessment/Plan 03/16/2016 Transthoracic echocardiography Normal LV systolic function, mild TR, trace MR 03/16/2016 Carotid U/S: Atherosclerotic plaque w/o stenosis 11/15/2017 Brain MRI: Large acute/subacute left temporal, left posterior frontal and left parietal lobes, multiple lacunar infarcts left frontal lobe 1. Expressive aphasia, acute stroke suspect embolic etiology 2. HTN/HCVD 3. Type 2 diabetes mellitus 4. Hypercholesterolemia 5. H/o syncope with typical prodromal sxs, likely neurocardiogenic PLAN: 1. No episodes of PAF on telemetry thus far, will need half-way arrhythmia monitor if telemetry monitoring unrevealing for PAF 2. Continue Aggrenox 1 bid, Crestor 10 qhs, KATHLEEN-I/ARB as hemodynamics tolerate 3. F/u echo and carotid u/s, consider SONIA to exclude PHYLLIS thrombus 4. DVT prophylaxis, PT, speech therapy 5. Thank you for consultative opportunity
[2017-11-16] MEDS: ASPIRIN/DIPYRIDAMOLE 25 MG/200 MG CAPSULE (FP) PO SCH ×2 (11:31→21:45)
[2017-11-16] MEDS: MULTIVITAMINS (DAILY MVI) TABLET (FP) PO SCH (11:32)
--- NOTE | 2017-11-16 12:41 | CONSULT ---
Admitting History and Physical - Primary Care Physician PCP: Terri Chavez - Admission History of Present Illness: Patient is an 85 year old female [place] descent with underlying history of type 2 diabetes mellitus, borderline hypertension, hypercholesterolemia, neurocradiogenic syncope, dementia referred for altered sensorium worse than baseline. Patient was recently admitted 11/07-11/09 for similar presentation and found to have UTI MRI brain with large size CVA noted, temporal, parietal and frontal. This is my first consult with this pt. Per EMR:Per Daughter patient's baseline is A&Ox3 with some mild dementia and able to ambulate, swallow, and care for self with minimal assist from a HOT KNIFE CUTTER at home (for several hours/several days a week). 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 Cardiovascular: Yes: HTN, Hyperlipdemia Endocrine: Yes: Diabetes Mellitus (type 2 DM) - Smoking History Smoking history: Never smoked Have you smoked in the past 12 months: No - Alcohol/Substance Use Hx Alcohol Use: No History of Substance Use: reports: None History - Admission Reason For Visit: AMS - General Mental Status: Awake and Alert, Confused Attention: Mild Impairment, Moderate Impairment Ability to Follow Directions: Poor Head/Neck Control: Fair - Hearing Hearing: Normal Speech Evaluation - Communication Primary Language: [id number] Communication: Yes: Aphasia Oral Expression Ability: Yes: Severe Impairment - Speech Production Able to Make Needs Known: Yes: Severely Impaired Intelligibility: Yes: Severely Impaired (precise but unintellible, perseverative jargon) - Speech Characteristics Voice Loudness: Normal Voice Pitch: Yes: Normal Voice Phonatory-based Quality: Yes: Breathy Speech Pattern: Impaired Speech Clarity: < 25% Nasal Resonance: Normal Articulation: Yes: Precise - Language/Auditory Comprehension Observation: Able to respond to yes/no queries: No, Yes/No Confusion: Yes, Comprehends Conversational Speech: No (occasionally with gesture) - Language/Verbal Expression Aphasia: Yes: Impaired Repetition, Paraphrasic Errors, Neologisms, Apraxia Able to Respond to Simple Queries: Yes: Severely Impaired Able to Communicate Wants and Needs: Yes: Severely Impaired Functional Communication Status: Yes: Severely Impaired - Memory/Perception Hemaniopsia: Yes: Right (suspected) Visual Neglect: Yes: Right (suspected) - Swallow Evaluation/Bedside Assessment Current Nutritional Intake: NPO Oral Secretions: Yes: WFL Facial Symmetry at Rest: Symmetrical Facial Symmetry on Retraction: Symmetrical Against Resistance Opening: Normal Against Resistance Closing: Normal Smile: Normal Lingual Movement: Unable to Perform Lingual Speed of Movement: Normal Laryngeal Movement: Able to Palpate Labial Seal: WFL Oral Prep Time: WFL A-P Transit: WFL Pocketing: None Timing of Swallow: Delayed Coughing/Throat Clear: No (risk with liquids due to oropharyngeal dyscoordination.) Change in Voice: No Recommendations - Speech Evaluation, Impression/Plan Impression: Severe Receptive/Expressive Aphasia. Euphoric with no awareness or frustration. Follows rare commands paired with gesture. Unable to follow simple spoken 1 stage commands. Yes/No responses are unreliable. Verbal, unintelligible jargon with occasional intelligible words eg OK, repeated Francoise, One. Rare spontaneous functional language eg Hello/Goodbye. Laughs frequently. No dysarthria. Oral dyscoordination/Apraxia advesely affects PO intake. Swallow is brisk. No dysarthria. Poor functional communication. - Disposition Discharge to: Rehabilitation Center - Dysphagia Impressions/Plan Dysphagia Impressions: Risk of Aspiration *Silent aspiration: cannot be R/O at bedside Dysphagia Treatment Plan: Small Bites, Chin Tuck/Down, Trial Feedings, Safe Rate , 1/2 tsp. at a time, Elevate HOB during feed Recommendations: Other (Monitor tolerance) - Recommendations Diet Consistency: Dysphagia Pureed Medication Administration: Crushed with applesauce Liquids: [place] Thick, Other (on tsp./ no straws.) Supplement: Magic Cup, Other (Ensure compact)
--- NOTE | 2017-11-16 14:28 | PN ---
Progress Note, Physician - Current Medication List Current Medications: Active Medications Dipyridamole/Aspirin (Aggrenox -) 1 combo PO BID [facility] Last Admin: 11/16/17 11:31 Dose: Not Given Heparin Sodium (Porcine) (Heparin -) 5,000 unit SQ TID [facility] Last Admin: 11/16/17 14:20 Dose: 5,000 unit Multivitamins/Minerals/Vitamin C (Tab-A-Vit -) 1 tab PO DAILY [facility] Last Admin: 11/16/17 11:32 Dose: Not Given Rosuvastatin Calcium (Crestor -) 10 mg PO HS [facility] Last Admin: 11/15/17 22:00 Dose: Not Given - Objective Vital Signs: Vital Signs Temperature 98.8 F 11/16/17 05:42 Pulse Rate 70 11/16/17 05:42 Respiratory Rate 18 11/16/17 05:42 Blood Pressure 132/68 11/16/17 05:42 O2 Sat by Pulse Oximetry (%) 95 11/15/17 21:00 Labs: CBC, BMP 11/16/17 06:00 11/16/17 06:00 INR, PTT INR 1.13 (0.82-1.09) 11/14/17 15:38 Problem List - Problems (1) Acute ischemic stroke Assessment/Plan: MRI shows large area of acute/subacute infarct of left frontal,posterior frontal and parietal lobe agreenox [facility] cardiology echo and carotid doppler gulshan dale to see patient Code(s): I63.9 - CEREBRAL INFARCTION, UNSPECIFIED
[2017-11-16] MEDS: ROSUVASTATIN CA 10 MG TABLET (FP) PO SCH (21:43)
[2017-11-17] MEDS: HEPARIN NA (PORCINE) 5,000 UNITS/ML 1ML VIAL SQ SCH ×3 (06:00→21:14)
[2017-11-17 08:46] LABS: BASO % 0.5 % (0-2.0); EOS % 0.8 % (0-4.5); HEMATOCRIT 41.9 % (32.4-45.2); LYMPH % 16.6 % (8-40); MCH 30.7 pg (25.7-33.7); MCHC 33.5 g/dl (32.0-36.0); MEAN CELL VOLUME 91.7 fl (80-96); MEAN PLT VOLUME 10.9 fl (7.5-11.1); MONO % 8.2 % (3.8-10.2); NEUT % 73.9 % (42.8-82.8); PLATELET COUNT 246 K/MM3 (134-434); RBC 4.57 M/mm3 (3.60-5.2); RDW 13.1 % (11.6-15.6); WHITE BLOOD COUNT 9.2 K/mm3 (4.0-10.0)
--- NOTE | 2017-11-17 09:36 | PN ---
Progress Note (short form) - Note Progress Note: Neurology History of Present Illness Ms. Constantino is an 86 yo female w/ pmh of NIDDM and baseline dementia BIBA after home based assistant noticed her to be more altered than usual. Patient was recently admitted 11/07-11/09 for similar presentation and found to have UTI for which she was treated with Cefuroxime (still undergoing treatment). She did not appear to have focal deficits but with aphasia. Completed CT head and MRI brain with large size CVA noted, temporal, parietal and frontal. Discussed with nurse. Switched ASA to aggrenox. Increased statin. Transfered to stroke unit recommended. Carotid Doppler and echo ordered. Telemetry monitoring. Cardiology consult recommended, possibly embolic given size and location. Not in TPA window. Completed Echo which did not show significant dysfunction. Carotids completed but did not visualize L carotids, R sided without HD significant stenosis. Would consider repeat Carotid Dopplers to better visualize L side. CTA can also be considered but would require contrast but may be able to be avoided as patient more cooperative today. LDL reviewed, 79 at this time. Active Medications Dipyridamole/Aspirin (Aggrenox -) 1 combo PO BID [facility] Last Admin: 11/16/17 21:45 Dose: 1 combo Heparin Sodium (Porcine) (Heparin -) 5,000 unit SQ TID [facility] Last Admin: 11/17/17 06:00 Dose: 5,000 unit Multivitamins/Minerals/Vitamin C (Tab-A-Vit -) 1 tab PO DAILY [facility] Last Admin: 11/16/17 11:32 Dose: Not Given Rosuvastatin Calcium (Crestor -) 10 mg PO HS [facility] Last Admin: 11/16/17 21:43 Dose: 10 mg *Physical Exam Vital Signs Temperature 98.3 F 11/17/17 06:00 Pulse Rate 86 11/17/17 06:00 Respiratory Rate 20 11/17/17 06:00 Blood Pressure 137/90 11/17/17 06:00 O2 Sat by Pulse Oximetry (%) 95 11/16/17 21:00 GENERAL: Awake, altered, in no acute distress HEAD: No signs of trauma, normocephalic, atraumatic EYES: PERRLA, EOMI, sclera anicteric, conjunctiva clear ENT: Auricles normal inspection, hearing grossly normal, nares patent, oropharynx clear without exudates. Moist mucosa NECK: Normal ROM, supple, no lymphadenopathy, JVD, or masses LUNGS: No distress, speaks full sentences, clear to auscultation bilaterally HEART: Regular rate and rhythm, normal S1 and S2, no murmurs, rubs or gallops, peripheral pulses normal and equal bilaterally. ABDOMEN: Soft, nontender, normoactive bowel sounds. No guarding, no rebound. No masses EXTREMITIES: Normal inspection, Normal range of motion, no edema. No clubbing or cyanosis. NEUROLOGICAL: Aphasia noted, moves extremities equally, sensory intact, not following full commands, gait deferred SKIN: Warm, Dry, normal turgor, no rashes or lesions noted. CBCD WBC 9.2 K/mm3 (4.0-10.0) D 11/17/17 06:30 RBC 4.57 M/mm3 (3.60-5.2) 11/17/17 06:30 Hgb 14.0 GM/dL (10.7-15.3) 11/17/17 06:30 Hct 41.9 % (32.4-45.2) 11/17/17 06:30 MCV 91.7 fl (80-96) 11/17/17 06:30 MCHC 33.5 g/dl (32.0-36.0) 11/17/17 06:30 RDW 13.1 % (11.6-15.6) 11/17/17 06:30 Plt Count 246 K/MM3 (134-434) 11/17/17 06:30 MPV 10.9 fl (7.5-11.1) 11/17/17 06:30 CMP Sodium 138 mmol/L (136-145) 11/16/17 06:00 Potassium 4.2 mmol/L (3.5-5.1) 11/16/17 06:00 Chloride 103 mmol/L (98-107) 11/16/17 06:00 Carbon Dioxide 23 mmol/L (21-32) 11/16/17 06:00 Anion Gap 12 (8-16) 11/16/17 06:00 BUN 13 mg/dL (7-18) 11/16/17 06:00 Creatinine 0.8 mg/dL (0.55-1.02) 11/16/17 06:00 Creat Clearance w eGFR > 60 (>60) 11/16/17 06:00 Random Glucose 145 mg/dL (74-106) H 11/16/17 06:00 Calcium 8.9 mg/dL (8.5-10.1) 11/16/17 06:00 Total Bilirubin 0.7 mg/dL (0.2-1.0) 11/16/17 06:00 AST 28 U/L (15-37) 11/16/17 06:00 ALT 44 U/L (12-78) 11/16/17 06:00 Alkaline Phosphatase 60 U/L (45-117) 11/16/17 06:00 Total Protein 7.4 g/dl (6.4-8.2) 11/16/17 06:00 Albumin 3.6 g/dl (3.4-5.0) 11/16/17 06:00 CARDIAC ENZYMES Troponin I < 0.02 ng/ml (0.00-0.05) 11/14/17 14:17 CT head, MRI brain reviewed Echo reviewed Carotid Doppler reviewed Medical Decision Making Ms. Constantino is an 86 yo female w/ pmh of NIDDM and baseline dementia BIBA after home based assistant noticed her to be more altered than usual. Patient was recently admitted 11/07-11/09 for similar presentation and found to have UTI for which she was treated with Cefuroxime (still undergoing treatment). MRI brain reviewed Ct head reviewed Carotid Doppler reviewed, consider repeat Echo reviewed, Cardiology follow up Monitor blood pressure, goal <160/90 for now, <130/80 as outpatient ASA switched to Aggernox LDL reviewed, 79, continue statin PT/OT Rehab placement DVT ppx
[2017-11-17] MEDS ORDERED: PT OWN MED DRAWER 7, Y5N ONE ×2 (10:02→18:54)
[2017-11-17] MEDS: MULTIVITAMINS (DAILY MVI) TABLET (FP) PO SCH (10:08)
[2017-11-17] MEDS: ASPIRIN/DIPYRIDAMOLE 25 MG/200 MG CAPSULE (FP) PO SCH ×2 (10:10→21:14)
[2017-11-17] MEDS ORDERED: HALOPERIDOL LACTATE 5 MG/ML IM ONE (11:11)
--- NOTE | 2017-11-17 11:15 | PN ---
Progress Note, Physician Chief Complaint: ASLEEP AGITATED PER NURSE EVENTS AND NOTES REVIEWED MRI REVIEWED CAROTID DOPPLER LEFT SIDE UNABLE TO VIEW PER RADIOLOGY B/C OF PATIENTS MOVEMENTS - Current Medication List Current Medications: Active Medications Dipyridamole/Aspirin (Aggrenox -) 1 combo PO BID [facility] Last Admin: 11/17/17 10:10 Dose: 1 combo Heparin Sodium (Porcine) (Heparin -) 5,000 unit SQ TID [facility] Last Admin: 11/17/17 06:00 Dose: 5,000 unit Multivitamins/Minerals/Vitamin C (Tab-A-Vit -) 1 tab PO DAILY [facility] Last Admin: 11/17/17 10:08 Dose: 1 tab Rosuvastatin Calcium (Crestor -) 10 mg PO HS [facility] Last Admin: 11/16/17 21:43 Dose: 10 mg - Objective Vital Signs: Vital Signs Temperature 98.5 F 11/17/17 10:00 Pulse Rate 80 11/17/17 10:00 Respiratory Rate 19 11/17/17 10:00 Blood Pressure 132/68 11/17/17 10:00 O2 Sat by Pulse Oximetry (%) 95 11/17/17 09:00 Constitutional: Yes: Mild Distress Eyes: Yes: Other Cardiovascular: Yes: Regular Rate and Rhythm Respiratory: Yes: WNL Genitourinary: Yes: Incontinence Musculoskeletal: Yes: Other Edema: No Integumentary: Yes: WNL Wound/Incision: Yes: Clean/Dry Neurological: Yes: Unresponsive ...Motor Strength: RUE, RLE Psychiatric: Yes: Agitated Labs: CBC, BMP 11/17/17 06:30 INR, PTT INR 1.13 (0.82-1.09) 11/14/17 15:38 Problem List - Problems (1) Acute ischemic stroke Code(s): I63.9 - CEREBRAL INFARCTION, UNSPECIFIED (2) Altered mental status Code(s): R41.82 - ALTERED MENTAL STATUS, UNSPECIFIED Qualifiers: Altered mental status type: unspecified Qualified Code(s): R41.82 - Altered mental status, unspecified (3) Expressive aphasia Code(s): R47.01 - APHASIA (4) Diabetes mellitus Code(s): E11.9 - TYPE 2 DIABETES MELLITUS WITHOUT COMPLICATIONS Qualifiers: Diabetes mellitus type: type 2 Diabetes mellitus senior care insulin use: without senior care use Diabetes mellitus complication status: without complication Qualified Code(s): E11.9 - Type 2 diabetes mellitus without complications Assessment/Plan SWALLOW EVAL SPEECH PATHOLOGY CARDIO/NEURO EVAL MONITOR TELEMETRY R/O AFIB CAROTID DOPPLER REPEAT TO VIEW LEFT SIDE AGGRENOX/ASA HEPARIN SQ MONITOR BGM IVF
--- NOTE | 2017-11-17 11:20 | PN ---
Progress Note, Physician History of Present Illness: Continued expressive aphasia. No PAF on telemetry. - Current Medication List Current Medications: Active Medications Dipyridamole/Aspirin (Aggrenox -) 1 combo PO BID [facility] Last Admin: 11/17/17 10:10 Dose: 1 combo Haloperidol (Haldol Injection (Fast Acting) -) 5 mg IM ONCE ONE Stop: 11/17/17 11:12 Heparin Sodium (Porcine) (Heparin -) 5,000 unit SQ TID [facility] Last Admin: 11/17/17 06:00 Dose: 5,000 unit Multivitamins/Minerals/Vitamin C (Tab-A-Vit -) 1 tab PO DAILY [facility] Last Admin: 11/17/17 10:08 Dose: 1 tab Rosuvastatin Calcium (Crestor -) 10 mg PO HS [facility] Last Admin: 11/16/17 21:43 Dose: 10 mg - Objective Vital Signs: Vital Signs Temperature 98.5 F 11/17/17 10:00 Pulse Rate 80 11/17/17 10:00 Respiratory Rate 19 11/17/17 10:00 Blood Pressure 132/68 11/17/17 10:00 O2 Sat by Pulse Oximetry (%) 95 11/17/17 09:00 Constitutional: Yes: No Distress, Calm, Thin Neck: Yes: Supple Cardiovascular: Yes: Regular Rate and Rhythm Respiratory: Yes: Regular, Diminished Gastrointestinal: Yes: Normal Bowel Sounds, Soft Edema: No Labs: CBC, BMP 11/17/17 06:30 INR, PTT INR 1.13 (0.82-1.09) 11/14/17 15:38 - ....Imaging EKG: Report Reviewed (Tele: No PAF) Problem List - Problems (1) Acute ischemic stroke Code(s): I63.9 - CEREBRAL INFARCTION, UNSPECIFIED (2) HTN (hypertension) Code(s): I10 - ESSENTIAL (PRIMARY) HYPERTENSION Qualifiers: Hypertension type: essential hypertension Qualified Code(s): I10 - Essential (primary) hypertension (3) Hypercholesterolemia Code(s): E78.0 - PURE HYPERCHOLESTEROLEMIA * DO NOT USE * (4) Expressive aphasia Code(s): R47.01 - APHASIA Assessment/Plan 11/16/2017 Echo: Normal biventricular size and fxn, LVEF 65-70%, tr AR 11/16/2017 Carotid U/S: LICA poorly visualized, TIMOTHY no stenosis 03/16/2016 Transthoracic echocardiography Normal LV systolic function, mild TR, trace MR 03/16/2016 Carotid U/S: Atherosclerotic plaque w/o stenosis 11/15/2017 Brain MRI: Large acute/subacute left temporal, left posterior frontal and left parietal lobes, multiple lacunar infarcts left frontal lobe 1. Expressive aphasia, acute stroke suspect embolic etiology 2. HTN/HCVD 3. Type 2 diabetes mellitus 4. Hypercholesterolemia 5. H/o syncope with typical prodromal sxs, likely neurocardiogenic PLAN: 1. No episodes of PAF on telemetry thus far, will need penitentiary arrhythmia monitor if telemetry monitoring unrevealing for PAF 2. Continue Aggrenox 1 bid, Crestor 10 qhs, KATHLEEN-I/ARB as hemodynamics tolerate 3. Repeat carotid u/s, consider SONIA to exclude PHYLLIS thrombus 4. DVT prophylaxis, PT, speech therapy
[2017-11-17 12:23] LABS: CHLORIDE 106 mmol/L (98-107); POTASSIUM 4.7 mmol/L (3.5-5.1); SODIUM 139 mmol/L (136-145)
[2017-11-17 12:51] LABS: ALBUMIN 3.8 g/dl (3.4-5.0); ALK PHOS 68 U/L (45-117); ANION GAP 13 (8-16); BILIRUBIN,TOTAL 0.6 mg/dL (0.2-1.0); BLOOD UREA NITROGEN 13 mg/dL (7-18); CALCIUM 9.1 mg/dL (8.5-10.1); CO2 20 mmol/L (21-32); GLUCOSE,RANDOM 148 mg/dL (74-106); SGOT/AST 25 U/L (15-37); SGPT/ALT 41 U/L (12-78); TOT PROT 7.8 g/dl (6.4-8.2)
[2017-11-17] MEDS: ROSUVASTATIN CA 10 MG TABLET (FP) PO SCH (21:14)
[2017-11-17] MEDS ORDERED: INSULIN (NOVOLOG) ASPART 100 UNITS/ML 10ML VIAL ONE (21:16)
[2017-11-17] MEDS: INSULIN SLIDING SCALE (NOVOLOG) 1 VIAL SQ SCH (21:17)
[2017-11-18] MEDS: NYSTATIN 500,000 UNITS/5 ML SUSPENSION PO SCH ×4 (00:44→17:15)
[2017-11-18] MEDS: HEPARIN NA (PORCINE) 5,000 UNITS/ML 1ML VIAL SQ SCH ×3 (05:33→21:20)
[2017-11-18] MEDS: INSULIN SLIDING SCALE (NOVOLOG) 1 VIAL SQ SCH ×4 (07:04→21:20)
[2017-11-18] MEDS: MULTIVITAMINS (DAILY MVI) TABLET (FP) PO SCH (09:12)
[2017-11-18] MEDS: ASPIRIN/DIPYRIDAMOLE 25 MG/200 MG CAPSULE (FP) PO SCH ×2 (09:12→21:20)
--- NOTE | 2017-11-18 10:06 | PN ---
Progress Note, Physician Chief Complaint: Events noted Currently verbal, but with underlying dementia and confusion History of Present Illness: Patient was seen and examined. Awake. Chart was reviewed Denies chest pain or SOB - Current Medication List Current Medications: Active Medications Dipyridamole/Aspirin (Aggrenox -) 1 combo PO BID [facility] Last Admin: 11/18/17 09:12 Dose: 1 combo Heparin Sodium (Porcine) (Heparin -) 5,000 unit SQ TID [facility] Last Admin: 11/18/17 05:33 Dose: 5,000 unit Insulin Aspart (Novolog Vial Sliding Scale -) 1 vial SQ ACHS [facility]; Protocol Last Admin: 11/18/17 07:04 Dose: 2 units Multivitamins/Minerals/Vitamin C (Tab-A-Vit -) 1 tab PO DAILY [facility] Last Admin: 11/18/17 09:12 Dose: 1 tab Nystatin (Nystatin Oral Suspension -) 500,000 units PO Q6HPO [facility] Last Admin: 11/18/17 05:33 Dose: 500,000 units Rosuvastatin Calcium (Crestor -) 10 mg PO HS [facility] Last Admin: 11/17/17 21:14 Dose: 10 mg - Objective Vital Signs: Vital Signs Temperature 97.5 F L 11/18/17 01:52 Pulse Rate 79 11/18/17 01:52 Respiratory Rate 18 11/18/17 01:52 Blood Pressure 122/66 11/18/17 01:52 O2 Sat by Pulse Oximetry (%) 96 11/17/17 21:00 Neck: Yes: Supple Cardiovascular: Yes: Regular Rate and Rhythm, S1, S2 Respiratory: Yes: Diminished Gastrointestinal: Yes: Normal Bowel Sounds, Soft. No: Tenderness Edema: No Labs: CBC, BMP 11/17/17 06:30 11/17/17 06:30 INR, PTT INR 1.13 (0.82-1.09) 11/14/17 15:38 Problem List - Problems (1) Acute ischemic stroke Code(s): I63.9 - CEREBRAL INFARCTION, UNSPECIFIED (2) Expressive aphasia Code(s): R47.01 - APHASIA (3) Diabetes mellitus Code(s): E11.9 - TYPE 2 DIABETES MELLITUS WITHOUT COMPLICATIONS Qualifiers: Diabetes mellitus type: type 2 Diabetes mellitus chcf insulin use: without chcf use Diabetes mellitus complication status: without complication Qualified Code(s): E11.9 - Type 2 diabetes mellitus without complications (4) HTN (hypertension) Code(s): I10 - ESSENTIAL (PRIMARY) HYPERTENSION Qualifiers: Hypertension type: essential hypertension Qualified Code(s): I10 - Essential (primary) hypertension (5) Hypercholesterolemia Code(s): E78.0 - PURE HYPERCHOLESTEROLEMIA * DO NOT USE * (6) Syncope and collapse Code(s): R55 - SYNCOPE AND COLLAPSE Assessment/Plan 1. Expressive aphasia, acute stroke suspect embolic etiology 2. HTN/HCVD 3. Type 2 diabetes mellitus 4. Hypercholesterolemia 5. 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 No episodes of PAF on telemetry, but will need heater engineer helper arrhythmia monitor if telemetry monitoring unrevealing for PAF 2. Continue Aggrenox 1 bid, Crestor 10 qhs and consider KATHLEEN-I/ARB as hemodynamics tolerate 3. Consider SONIA if consent is obtained to exclude PHYLLIS thrombus, then decision regarding whether she would need anticoagulation should be decided 4. DVT prophylaxis, PT, speech therapy Trip Villanueva MD
--- NOTE | 2017-11-18 11:34 | PN ---
Progress Note, Physician - Current Medication List Current Medications: Active Medications Dipyridamole/Aspirin (Aggrenox -) 1 combo PO BID [facility] Last Admin: 11/18/17 09:12 Dose: 1 combo Heparin Sodium (Porcine) (Heparin -) 5,000 unit SQ TID [facility] Last Admin: 11/18/17 05:33 Dose: 5,000 unit Insulin Aspart (Novolog Vial Sliding Scale -) 1 vial SQ ACHS [facility]; Protocol Last Admin: 11/18/17 07:04 Dose: 2 units Multivitamins/Minerals/Vitamin C (Tab-A-Vit -) 1 tab PO DAILY [facility] Last Admin: 11/18/17 09:12 Dose: 1 tab Nystatin (Nystatin Oral Suspension -) 500,000 units PO Q6HPO [facility] Last Admin: 11/18/17 05:33 Dose: 500,000 units Rosuvastatin Calcium (Crestor -) 10 mg PO HS [facility] Last Admin: 11/17/17 21:14 Dose: 10 mg - Objective Vital Signs: Vital Signs Temperature 98.1 F 11/18/17 10:00 Pulse Rate 82 11/18/17 10:00 Respiratory Rate 18 11/18/17 10:01 Blood Pressure 119/68 11/18/17 10:00 O2 Sat by Pulse Oximetry (%) 96 11/18/17 10:01 Labs: CBC, BMP 11/17/17 06:30 11/17/17 06:30 INR, PTT INR 1.13 (0.82-1.09) 11/14/17 15:38 Problem List - Problems (1) Acute ischemic stroke Assessment/Plan: MRI shows large area of acute/subacute infarct of left frontal,posterior frontal and parietal lobe agreenox [facility] cardiology on board echo and carotid doppler noted--rpt eh dale to see patient Code(s): I63.9 - CEREBRAL INFARCTION, UNSPECIFIED (2) Diabetes mellitus Assessment/Plan: -bgm -endo Code(s): E11.9 - TYPE 2 DIABETES MELLITUS WITHOUT COMPLICATIONS Qualifiers: Diabetes mellitus type: type 2 Diabetes mellitus mcfp insulin use: without mcfp use Diabetes mellitus complication status: without complication Qualified Code(s): E11.9 - Type 2 diabetes mellitus without complications (3) HTN (hypertension) Assessment/Plan: Vital Signs Period Temp Pulse Resp BP Sys/Mcgraw Pulse Ox Last 24 Hr 97 F-98.1 F 54-86 18-20 116-147/66-79 96-96 Code(s): I10 - ESSENTIAL (PRIMARY) HYPERTENSION Qualifiers: Hypertension type: essential hypertension Qualified Code(s): I10 - Essential (primary) hypertension
--- NOTE | 2017-11-18 11:53 | PN ---
Progress Note (short form) - Note Progress Note: Neurology History of Present Illness Ms. Constantino is an 86 yo female w/ pmh of NIDDM and baseline dementia BIBA after home demonstration agent noticed her to be more altered than usual. Patient was recently admitted 11/07-11/09 for similar presentation and found to have UTI for which she was treated with Cefuroxime (still undergoing treatment). She did not appear to have focal deficits but with aphasia. Completed CT head and MRI brain with large size CVA noted, temporal, parietal and frontal. Discussed with nurse. Switched ASA to aggrenox. Increased statin. Transfered to stroke unit recommended. Carotid Doppler and echo ordered. Telemetry monitoring. Cardiology consult recommended, possibly embolic given size and location. Not in TPA window. Completed Echo which did not show significant dysfunction. Carotids completed but did not visualize L carotids initially, Repeated them to better visualize L side. Did not show significant hemodynamic stenosis. LDL reviewed, 79 at this time. Patient does have RLE deficits and aphasia. Is moving RUE. Spoke with daughter for 45 mins yesterday regarding details of case including imaging results and next steps. Plan is for rehab placement. Active Medications Dipyridamole/Aspirin (Aggrenox -) 1 combo PO BID [facility] Last Admin: 11/18/17 09:12 Dose: 1 combo Heparin Sodium (Porcine) (Heparin -) 5,000 unit SQ TID [facility] Last Admin: 11/18/17 05:33 Dose: 5,000 unit Insulin Aspart (Novolog Vial Sliding Scale -) 1 vial SQ ACHS [facility]; Protocol Last Admin: 11/18/17 11:48 Dose: 4 units Multivitamins/Minerals/Vitamin C (Tab-A-Vit -) 1 tab PO DAILY [facility] Last Admin: 11/18/17 09:12 Dose: 1 tab Nystatin (Nystatin Oral Suspension -) 500,000 units PO Q6HPO [facility] Last Admin: 11/18/17 11:51 Dose: 500,000 units Rosuvastatin Calcium (Crestor -) 10 mg PO HS [facility] Last Admin: 11/17/17 21:14 Dose: 10 mg *Physical Exam Vital Signs Temperature 98.1 F 11/18/17 10:00 Pulse Rate 82 11/18/17 10:00 Respiratory Rate 18 11/18/17 10:01 Blood Pressure 119/68 11/18/17 10:00 O2 Sat by Pulse Oximetry (%) 96 11/18/17 10:01 GENERAL: Awake, altered, in no acute distress HEAD: No signs of trauma, normocephalic, atraumatic EYES: PERRLA, EOMI, sclera anicteric, conjunctiva clear ENT: Auricles normal inspection, hearing grossly normal, nares patent, oropharynx clear without exudates. Moist mucosa NECK: Normal ROM, supple, no lymphadenopathy, JVD, or masses LUNGS: No distress, speaks full sentences, clear to auscultation bilaterally HEART: Regular rate and rhythm, normal S1 and S2, no murmurs, rubs or gallops, peripheral pulses normal and equal bilaterally. ABDOMEN: Soft, nontender, normoactive bowel sounds. No guarding, no rebound. No masses EXTREMITIES: Normal inspection, Normal range of motion, no edema. No clubbing or cyanosis. NEUROLOGICAL: Aphasia noted, moves extremities equally, sensory intact, not following full commands, gait deferred SKIN: Warm, Dry, normal turgor, no rashes or lesions noted. CBCD WBC 9.2 K/mm3 (4.0-10.0) D 11/17/17 06:30 RBC 4.57 M/mm3 (3.60-5.2) 11/17/17 06:30 Hgb 14.0 GM/dL (10.7-15.3) 11/17/17 06:30 Hct 41.9 % (32.4-45.2) 11/17/17 06:30 MCV 91.7 fl (80-96) 11/17/17 06:30 MCHC 33.5 g/dl (32.0-36.0) 11/17/17 06:30 RDW 13.1 % (11.6-15.6) 11/17/17 06:30 Plt Count 246 K/MM3 (134-434) 11/17/17 06:30 MPV 10.9 fl (7.5-11.1) 11/17/17 06:30 CMP Sodium 139 mmol/L (136-145) 11/17/17 06:30 Potassium 4.7 mmol/L (3.5-5.1) 11/17/17 06:30 Chloride 106 mmol/L (98-107) 11/17/17 06:30 Carbon Dioxide 20 mmol/L (21-32) L 11/17/17 06:30 Anion Gap 13 (8-16) 11/17/17 06:30 BUN 13 mg/dL (7-18) 11/17/17 06:30 Creatinine 1.0 mg/dL (0.55-1.02) 11/17/17 06:30 Creat Clearance w eGFR 52.69 (>60) 11/17/17 06:30 Calcium 9.1 mg/dL (8.5-10.1) 11/17/17 06:30 Total Bilirubin 0.6 mg/dL (0.2-1.0) 11/17/17 06:30 AST 25 U/L (15-37) 11/17/17 06:30 ALT 41 U/L (12-78) 11/17/17 06:30 Alkaline Phosphatase 68 U/L (45-117) 11/17/17 06:30 Total Protein 7.8 g/dl (6.4-8.2) 11/17/17 06:30 Albumin 3.8 g/dl (3.4-5.0) 11/17/17 06:30 CT head, MRI brain reviewed Echo reviewed Carotid Doppler reviewed Medical Decision Making Ms. Constantino is an 86 yo female w/ pmh of NIDDM and baseline dementia BIBA after home demonstration agent noticed her to be more altered than usual. Patient was recently admitted 11/07-11/09 for similar presentation and found to have UTI for which she was treated with Cefuroxime (still undergoing treatment). MRI brain reviewed Ct head reviewed Carotid Doppler reviewed, repeat reviewed Echo reviewed, Cardiology follow up Monitor blood pressure, goal <140/90 for now, <130/80 as outpatient ASA switched to Aggernox LDL reviewed, 79, continue statin PT/OT Rehab placement DVT ppx Discussed with daughter in detail via phone yesterday
[2017-11-18] MEDS: ROSUVASTATIN CA 10 MG TABLET (FP) PO SCH (21:20)
[2017-11-19] MEDS: NYSTATIN 500,000 UNITS/5 ML SUSPENSION PO SCH ×5 (01:06→23:10)
[2017-11-19] MEDS: HEPARIN NA (PORCINE) 5,000 UNITS/ML 1ML VIAL SQ SCH ×3 (06:20→21:36)
[2017-11-19] MEDS: INSULIN SLIDING SCALE (NOVOLOG) 1 VIAL SQ SCH ×4 (06:23→21:36)
--- NOTE | 2017-11-19 09:13 | PN ---
Progress Note, Physician Chief Complaint: Events noted Currently verbal, but with with organic brain/dementia History of Present Illness: Patient was seen and examined. Awake. Chart was reviewed Denies chest pain, SOB or palpitations Remains in sinus rhythm on bank accountant - Current Medication List Current Medications: Active Medications Dipyridamole/Aspirin (Aggrenox -) 1 combo PO BID [facility] Last Admin: 11/18/17 21:20 Dose: 1 combo Heparin Sodium (Porcine) (Heparin -) 5,000 unit SQ TID [facility] Last Admin: 11/19/17 06:20 Dose: 5,000 unit Insulin Aspart (Novolog Vial Sliding Scale -) 1 vial SQ ACHS [facility]; Protocol Last Admin: 11/19/17 06:23 Dose: 2 units Multivitamins/Minerals/Vitamin C (Tab-A-Vit -) 1 tab PO DAILY [facility] Last Admin: 11/18/17 09:12 Dose: 1 tab Nystatin (Nystatin Oral Suspension -) 500,000 units PO Q6HPO [facility] Last Admin: 11/19/17 06:24 Dose: Not Given Rosuvastatin Calcium (Crestor -) 10 mg PO HS [facility] Last Admin: 11/18/17 21:20 Dose: 10 mg - Objective Vital Signs: Vital Signs Temperature 98.6 F 11/19/17 06:00 Pulse Rate 84 11/19/17 06:00 Respiratory Rate 18 11/19/17 06:00 Blood Pressure 132/71 11/19/17 06:00 O2 Sat by Pulse Oximetry (%) 96 11/18/17 21:00 HENT: Yes: Atraumatic Neck: Yes: Supple Cardiovascular: Yes: Regular Rate and Rhythm, S1, S2 Respiratory: Yes: CTA Bilaterally Gastrointestinal: Yes: Normal Bowel Sounds, Soft. 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 Post expressive aphasia currently verbal, acute stroke suspect embolic etiology, underlying organic brain syndrome/dementia 2. HTN/HCVD 3. Type 2 diabetes mellitus 4. Hypercholesterolemia 5. 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 No episodes of PAF on telemetry, but will need nursing home arrhythmia monitor if telemetry monitoring unrevealing for PAF 2. Continue Aggrenox 1 bid, Crestor 10 qhs and consider KATHLEEN-I/ARB as hemodynamics tolerate. Start Valsartan 40 mg once a day 3. Consider SONIA if consent is obtained (will speak with daugther) to exclude PHYLLIS thrombus, then decision regarding whether she would need anticoagulation should be decided. Keep NPO after MN 4. DVT prophylaxis, PT, speech therapy Trip Villanueva MD
[2017-11-19] MEDS: MULTIVITAMINS (DAILY MVI) TABLET (FP) PO SCH (09:27)
[2017-11-19] MEDS: ASPIRIN/DIPYRIDAMOLE 25 MG/200 MG CAPSULE (FP) PO SCH ×2 (09:27→21:36)
--- NOTE | 2017-11-19 11:31 | PN ---
Progress Note, Physician - Current Medication List Current Medications: Active Medications Dipyridamole/Aspirin (Aggrenox -) 1 combo PO BID [facility] Last Admin: 11/19/17 09:27 Dose: 1 combo Heparin Sodium (Porcine) (Heparin -) 5,000 unit SQ TID [facility] Last Admin: 11/19/17 06:20 Dose: 5,000 unit Insulin Aspart (Novolog Vial Sliding Scale -) 1 vial SQ ACHS [facility]; Protocol Last Admin: 11/19/17 06:23 Dose: 2 units Multivitamins/Minerals/Vitamin C (Tab-A-Vit -) 1 tab PO DAILY [facility] Last Admin: 11/19/17 09:27 Dose: 1 tab Nystatin (Nystatin Oral Suspension -) 500,000 units PO Q6HPO [facility] Last Admin: 11/19/17 06:24 Dose: Not Given Rosuvastatin Calcium (Crestor -) 10 mg PO HS [facility] Last Admin: 11/18/17 21:20 Dose: 10 mg - Objective Vital Signs: Vital Signs Temperature 98.4 F 11/19/17 09:26 Pulse Rate 82 11/19/17 09:26 Respiratory Rate 20 11/19/17 09:26 Blood Pressure 130/69 11/19/17 09:26 O2 Sat by Pulse Oximetry (%) 96 11/18/17 21:00 Cardiovascular: Yes: S1, S2 Respiratory: Yes: Regular, CTA Bilaterally Gastrointestinal: Yes: Normal Bowel Sounds, Soft Labs: CBC, BMP 11/17/17 06:30 11/17/17 06:30 INR, PTT INR 1.13 (0.82-1.09) 11/14/17 15:38 Problem List - Problems (1) Acute ischemic stroke Assessment/Plan: MRI shows large area of acute/subacute infarct of left frontal,posterior frontal and parietal lobe agreenox statin rehab cardiology on board echo and carotid doppler noted--janae dale to see patient Code(s): I63.9 - CEREBRAL INFARCTION, UNSPECIFIED (2) Diabetes mellitus Assessment/Plan: -bgm -endo Code(s): E11.9 - TYPE 2 DIABETES MELLITUS WITHOUT COMPLICATIONS Qualifiers: Diabetes mellitus type: type 2 Diabetes mellitus prison insulin use: without computer terminal operator use Diabetes mellitus complication status: without complication Qualified Code(s): E11.9 - Type 2 diabetes mellitus without complications (3) HTN (hypertension) Assessment/Plan: Vital Signs Period Temp Pulse Resp BP Sys/Mcgraw Pulse Ox Last 24 Hr 97 F-98.1 F 54-86 18-20 116-147/66-79 96-96 Code(s): I10 - ESSENTIAL (PRIMARY) HYPERTENSION Qualifiers: Hypertension type: essential hypertension Qualified Code(s): I10 - Essential (primary) hypertension
--- NOTE | 2017-11-19 13:20 | PN ---
Progress Note (short form) - Note Progress Note: Neurology History of Present Illness Ms. Constantino is an 86 yo female w/ pmh of NIDDM and baseline dementia BIBA after home care chaplain noticed her to be more altered than usual. Patient was recently admitted 11/07-11/09 for similar presentation and found to have UTI for which she was treated with Cefuroxime (still undergoing treatment). She did not appear to have focal deficits but with aphasia. Completed CT head and MRI brain with large size CVA noted, temporal, parietal and frontal. Discussed with nurse. Switched ASA to aggrenox. Increased statin. Transfered to stroke unit recommended. Carotid Doppler and echo ordered. Telemetry monitoring. Cardiology consult recommended, possibly embolic given size and location. Not in TPA window. Completed Echo which did not show significant dysfunction. Carotids completed but did not visualize L carotids initially, Repeated them to better visualize L side. Did not show significant hemodynamic stenosis. LDL reviewed, 79 at this time. Patient does have RLE deficits and aphasia. Is moving RUE. Spoke with daughter for 20 mins again yesterday regarding details of case including imaging results and next steps. Plan is for rehab placement. Made her aware that repeated carotids did not HD significant stenosis of L. Cardiology note reviewed, consider SONIA, he will connect with daughter to further evaluate. Active Medications Dipyridamole/Aspirin (Aggrenox -) 1 combo PO BID [facility] Last Admin: 11/19/17 09:27 Dose: 1 combo Heparin Sodium (Porcine) (Heparin -) 5,000 unit SQ TID [facility] Last Admin: 11/19/17 06:20 Dose: 5,000 unit Insulin Aspart (Novolog Vial Sliding Scale -) 1 vial SQ ACHS [facility]; Protocol Last Admin: 11/19/17 12:17 Dose: 4 units Multivitamins/Minerals/Vitamin C (Tab-A-Vit -) 1 tab PO DAILY [facility] Last Admin: 11/19/17 09:27 Dose: 1 tab Nystatin (Nystatin Oral Suspension -) 500,000 units PO Q6HPO [facility] Last Admin: 11/19/17 06:24 Dose: Not Given Rosuvastatin Calcium (Crestor -) 10 mg PO HS [facility] Last Admin: 11/18/17 21:20 Dose: 10 mg *Physical Exam Vital Signs Period Temp Pulse Resp BP Sys/Mcgraw Pulse Ox Last 24 Hr 98.3 F-99.0 F 82-99 18-20 130-143/69-77 96 GENERAL: Awake, altered, in no acute distress HEAD: No signs of trauma, normocephalic, atraumatic EYES: PERRLA, EOMI, sclera anicteric, conjunctiva clear ENT: Auricles normal inspection, hearing grossly normal, nares patent, oropharynx clear without exudates. Moist mucosa NECK: Normal ROM, supple, no lymphadenopathy, JVD, or masses LUNGS: No distress, speaks full sentences, clear to auscultation bilaterally HEART: Regular rate and rhythm, normal S1 and S2, no murmurs, rubs or gallops, peripheral pulses normal and equal bilaterally. ABDOMEN: Soft, nontender, normoactive bowel sounds. No guarding, no rebound. No masses EXTREMITIES: Normal inspection, Normal range of motion, no edema. No clubbing or cyanosis. NEUROLOGICAL: Aphasia noted, moves extremities equally, sensory intact, not following full commands, gait deferred SKIN: Warm, Dry, normal turgor, no rashes or lesions noted. CBCD WBC 9.2 K/mm3 (4.0-10.0) D 11/17/17 06:30 RBC 4.57 M/mm3 (3.60-5.2) 11/17/17 06:30 Hgb 14.0 GM/dL (10.7-15.3) 11/17/17 06:30 Hct 41.9 % (32.4-45.2) 11/17/17 06:30 MCV 91.7 fl (80-96) 11/17/17 06:30 MCHC 33.5 g/dl (32.0-36.0) 11/17/17 06:30 RDW 13.1 % (11.6-15.6) 11/17/17 06:30 Plt Count 246 K/MM3 (134-434) 11/17/17 06:30 MPV 10.9 fl (7.5-11.1) 11/17/17 06:30 CMP Sodium 139 mmol/L (136-145) 11/17/17 06:30 Potassium 4.7 mmol/L (3.5-5.1) 11/17/17 06:30 Chloride 106 mmol/L (98-107) 06/22/18 06:30 Carbon Dioxide 20 mmol/L (21-32) L 11/17/17 06:30 Anion Gap 13 (8-16) 11/17/17 06:30 BUN 13 mg/dL (7-18) 11/17/17 06:30 Creatinine 1.0 mg/dL (0.55-1.02) 11/17/17 06:30 Creat Clearance w eGFR 52.69 (>60) 11/17/17 06:30 Random Glucose 148 mg/dL (74-106) H 11/17/17 06:30 Calcium 9.1 mg/dL (8.5-10.1) 11/17/17 06:30 Total Bilirubin 0.6 mg/dL (0.2-1.0) 11/17/17 06:30 AST 25 U/L (15-37) 11/17/17 06:30 ALT 41 U/L (12-78) 11/17/17 06:30 Alkaline Phosphatase 68 U/L (45-117) 11/17/17 06:30 Total Protein 7.8 g/dl (6.4-8.2) 11/17/17 06:30 Albumin 3.8 g/dl (3.4-5.0) 11/17/17 06:30 CARDIAC ENZYMES Troponin I < 0.02 ng/ml (0.00-0.05) 11/14/17 14:17 CT head, MRI brain reviewed Echo reviewed Carotid Doppler reviewed Medical Decision Making Ms. Constantino is an 86 yo female w/ pmh of NIDDM and baseline dementia BIBA after home care chaplain noticed her to be more altered than usual. Patient was recently admitted 11/07-11/09 for similar presentation and found to have UTI for which she was treated with Cefuroxime (still undergoing treatment). MRI brain reviewed Ct head reviewed Carotid Doppler reviewed, repeat reviewed Echo reviewed, Cardiology note reviewed, considering SONIA, no objection Monitor blood pressure, goal <140/90 for now, <130/80 as outpatient ASA switched to Aggernox LDL reviewed, 79, continue statin PT/OT Rehab placement DVT ppx Discussed with daughter in detail via phone yesterday
[2017-11-19] MEDS: ROSUVASTATIN CA 10 MG TABLET (FP) PO SCH (21:36)
--- NOTE | 2017-11-20 01:11 | CONSULT ---
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 Patient has had recent admission with cva evidence and neurological changes noted on ct scan,patient requiring ongoing neurological treatment for cva symptoms. 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 Cardio/Vascular: Yes: HTN, Hyperlipdemia Endocrine: Yes: Diabetes Mellitus (type 2 DM) - Alcohol/Substance Use Hx Alcohol Use: No History of Substance Use: reports: None - Smoking History Smoking history: Never smoked Have you smoked in the past 12 months: No Home Medications - Allergies Allergies/Adverse Reactions: Allergies Allergy/AdvReac Type Severity Reaction Status Date / Time No Known Allergies Allergy Verified 11/14/17 13:42 - Home Medications Home Medications: Ambulatory Orders Ammonium Lactate 1 ml TP DAILY 03/15/16 Aspirin [ASA -] 81 mg PO DAILY 03/15/16 Calcium Carb/Vitamin D3/Vit K1 [Calcium + D Soft Chewable Tab] 1 each PO DAILY 03/15/16 Celecoxib [Celebrex] 200 mg PO DAILY 03/15/16 Gentamicin Sulfate [Gentak] 2.5 gm OP BID 03/15/16 Multivitamin [Poly-Vitamin] 1 tab PO DAILY 03/15/16 Rosuvastatin Calcium [Crestor] 5 mg PO DAILY 03/15/16 Solifenacin Succinate [Vesicare -] 10 mg PO DAILY 03/15/16 Vitamin B Complex 1 each PO DAILY 03/15/16 Multivitamins [Multivit ([facility] Formulary)] 1 tab PO DAILY tab 11/08/17 Cefuroxime Axetil [Ceftin -] 500 mg PO BID #14 tablet 11/09/17 Review of Systems - Review of Systems Constitutional: reports: Lethargy, Weakness Physical Exam Vital Signs: Vital Signs Temperature 99.1 F 11/19/17 18:35 Pulse Rate 80 11/19/17 18:35 Respiratory Rate 20 11/19/17 18:35 Blood Pressure 138/62 11/19/17 18:35 O2 Sat by Pulse Oximetry (%) 96 11/19/17 09:00 Constitutional: Yes: No Distress Eyes: Yes: EOM Intact HENT: Yes: Normocephalic Neck: Yes: Trachea Midline Cardiovascular: Yes: Regular Rate and Rhythm Respiratory: Yes: CTA Bilaterally Gastrointestinal: Yes: Normal Bowel Sounds ...Rectal Exam: Yes: Deferred Renal/: Yes: WNL Musculoskeletal: Yes: WNL Extremities: Yes: WNL Edema: No Neurological: Yes: Alert, Aphasia Psychiatric: Yes: Alert Labs: CBC, BMP 11/17/17 06:30 11/17/17 06:30 Problem List - Problems (1) Acute ischemic stroke Code(s): I63.9 - CEREBRAL INFARCTION, UNSPECIFIED (2) Altered mental status Code(s): R41.82 - ALTERED MENTAL STATUS, UNSPECIFIED Qualifiers: Altered mental status type: unspecified Qualified Code(s): R41.82 - Altered mental status, unspecified (3) Expressive aphasia Code(s): R47.01 - APHASIA (4) Abnormal thyroid exam Code(s): R94.6 - ABNORMAL RESULTS OF THYROID FUNCTION STUDIES (5) DVT prophylaxis Code(s): [id number] - (6) Diabetes mellitus Code(s): E11.9 - TYPE 2 DIABETES MELLITUS WITHOUT COMPLICATIONS Qualifiers: Diabetes mellitus type: type 2 Diabetes mellitus usp insulin use: without usp use Diabetes mellitus complication status: without complication Qualified Code(s): E11.9 - Type 2 diabetes mellitus without complications Assessment/Plan Current Active Problems Acute ischemic stroke (Acute) Altered mental status (Acute) Expressive aphasia (Acute) nodular thyroid gland diabetes mellitus Laboratory Results - last 24 hr 11/19/17 11/19/17 11/19/17 06:19 12:15 17:07 POC Glucometer 186 228 162 Laboratory Tests 11/16/17 11/17/17 11/17/17 06:00 06:30 11:20 Sodium 139 Potassium 4.7 Chloride 106 Carbon Dioxide 20 L Anion Gap 13 BUN 13 Creatinine 1.0 Creat Clearance w eGFR 52.69 POC Glucometer Hemoglobin A1c % 6.1 H Triglycerides 129 Cholesterol 133 Total LDL Cholesterol 79 HDL Cholesterol 40 11/17/17 11/17/17 11:31 16:21 Sodium Potassium Chloride Carbon Dioxide Anion Gap BUN Creatinine Creat Clearance w eGFR POC Glucometer 216 156 Hemoglobin A1c % Triglycerides Cholesterol Total LDL Cholesterol HDL Cholesterol plan: [facility] achs novolog insulin scale check tsh free t4 will need out patient follow up for thyroid nodule
[2017-11-20] MEDS: NYSTATIN 500,000 UNITS/5 ML SUSPENSION PO SCH ×4 (05:36→23:19)
[2017-11-20] MEDS: HEPARIN NA (PORCINE) 5,000 UNITS/ML 1ML VIAL SQ SCH ×3 (05:37→23:03)
[2017-11-20] MEDS: INSULIN SLIDING SCALE (NOVOLOG) 1 VIAL SQ SCH ×4 (06:12→23:03)
--- NOTE | 2017-11-20 09:51 | PN ---
Progress Note, Physician Chief Complaint: Events noted Currently verbal, but with with organic brain/dementia Clinically improved History of Present Illness: Patient was seen and examined. Awake. Chart was reviewed Denies chest pain, SOB or palpitations Remains in sinus rhythm on compliance monitor SONIA not possible today but instead will be scheduled tomorrow morning at 8:15 am - Current Medication List Current Medications: Active Medications Dipyridamole/Aspirin (Aggrenox -) 1 combo PO BID [facility] Last Admin: 11/19/17 21:36 Dose: 1 combo Heparin Sodium (Porcine) (Heparin -) 5,000 unit SQ TID [facility] Last Admin: 11/20/17 05:37 Dose: 5,000 unit Insulin Aspart (Novolog Vial Sliding Scale -) 1 vial SQ ACHS [facility]; Protocol Last Admin: 11/20/17 06:12 Dose: 2 units Multivitamins/Minerals/Vitamin C (Tab-A-Vit -) 1 tab PO DAILY [facility] Last Admin: 11/19/17 09:27 Dose: 1 tab Nystatin (Nystatin Oral Suspension -) 500,000 units PO Q6HPO [facility] Last Admin: 11/20/17 05:36 Dose: 500,000 units Rosuvastatin Calcium (Crestor -) 10 mg PO HS [facility] Last Admin: 11/19/17 21:36 Dose: 10 mg Senna (Senna -) 1 tab PO HS [facility] - Objective Vital Signs: Vital Signs Temperature 98.6 F 11/20/17 06:00 Pulse Rate 83 11/20/17 06:00 Respiratory Rate 18 11/20/17 06:00 Blood Pressure 139/87 11/20/17 06:00 O2 Sat by Pulse Oximetry (%) 96 11/19/17 21:00 Neck: Yes: Supple Cardiovascular: Yes: Regular Rate and Rhythm, S1, S2 Respiratory: Yes: CTA Bilaterally Gastrointestinal: Yes: Normal Bowel Sounds, Soft. No: Tenderness Edema: No Problem List - Problems (1) Acute ischemic stroke Code(s): I63.9 - CEREBRAL INFARCTION, UNSPECIFIED (2) Expressive aphasia Code(s): R47.01 - APHASIA (3) Diabetes mellitus Code(s): E11.9 - TYPE 2 DIABETES MELLITUS WITHOUT COMPLICATIONS Qualifiers: Diabetes mellitus type: type 2 Diabetes mellitus longterm insulin use: without ad terminal makeup operator use Diabetes mellitus complication status: without complication Qualified Code(s): E11.9 - Type 2 diabetes mellitus without complications (4) HTN (hypertension) Code(s): I10 - ESSENTIAL (PRIMARY) HYPERTENSION Qualifiers: Hypertension type: essential hypertension Qualified Code(s): I10 - Essential (primary) hypertension (5) Hypercholesterolemia Code(s): E78.0 - PURE HYPERCHOLESTEROLEMIA * DO NOT USE * (6) Syncope and collapse Code(s): R55 - SYNCOPE AND COLLAPSE Assessment/Plan 1. Post expressive aphasia currently verbal, acute stroke suspect embolic etiology - clinically improved, underlying organic brain syndrome/dementia 2. HTN/HCVD 3. Type 2 diabetes mellitus 4. Hypercholesterolemia 5. 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 No episodes of PAF on telemetry, but will need longterm arrhythmia monitor if telemetry monitoring unrevealing for PAF 2. Continue Aggrenox 1 bid, Crestor 10 qhs and consider KATHLEEN-I/ARB as hemodynamics tolerate. Continue Valsartan 40 mg once a day as tolerated and uptitrate 3. Consider SONIA if consent is obtained (will speak with daugther) to exclude PHYLLIS thrombus, then decision regarding whether she would need anticoagulation should be decided. Tentatively scheduled tomorrow morning. Keep NPO after MN 4. DVT prophylaxis, PT, speech therapy Trip Villanueva MD
--- NOTE | 2017-11-20 10:05 | PN ---
Progress Note (short form) - Note Progress Note: Neurology History of Present Illness Ms. Constantino is an 86 yo female w/ pmh of NIDDM and baseline dementia BIBA after homemaking rehabilitation consultant noticed her to be more altered than usual. Patient was recently admitted 11/07-11/09 for similar presentation and found to have UTI for which she was treated with Cefuroxime (still undergoing treatment). She did not appear to have focal deficits but with aphasia. Completed CT head and MRI brain with large size CVA noted, temporal, parietal and frontal. Discussed with nurse. Switched ASA to aggrenox. Increased statin. Transfered to stroke unit recommended. Carotid Doppler and echo ordered. Telemetry monitoring. Cardiology consult recommended, possibly embolic given size and location. Not in TPA window. Completed Echo which did not show significant dysfunction. Carotids completed but did not visualize L carotids initially, Repeated them to better visualize L side. Did not show significant hemodynamic stenosis. LDL reviewed, 79 at this time. Patient does have RLE deficits and aphasia. Is moving RUE and RLE today. Also speaking and able to tell me she's in the hospital. Plan is for rehab placement. Cardiology note reviewed, spoke with him today, considering SONIA , he will connect with daughter to further evaluate. Would likely be for tomorrow. Patient improving gradually. Active Medications Dipyridamole/Aspirin (Aggrenox -) 1 combo PO BID [facility] Last Admin: 11/19/17 21:36 Dose: 1 combo Heparin Sodium (Porcine) (Heparin -) 5,000 unit SQ TID [facility] Last Admin: 11/20/17 05:37 Dose: 5,000 unit Insulin Aspart (Novolog Vial Sliding Scale -) 1 vial SQ ACHS [facility]; Protocol Last Admin: 11/20/17 06:12 Dose: 2 units Multivitamins/Minerals/Vitamin C (Tab-A-Vit -) 1 tab PO DAILY [facility] Last Admin: 11/19/17 09:27 Dose: 1 tab Nystatin (Nystatin Oral Suspension -) 500,000 units PO Q6HPO [facility] Last Admin: 11/20/17 05:36 Dose: 500,000 units Rosuvastatin Calcium (Crestor -) 10 mg PO HS [facility] Last Admin: 11/19/17 21:36 Dose: 10 mg Senna (Senna -) 1 tab PO HS [facility] *Physical Exam Vital Signs Period Temp Pulse Resp BP Sys/Mgcraw Pulse Ox Last 24 Hr 98.6 F-99.5 F 80-99 18-20 121-139/61-87 96 GENERAL: Awake, altered, in no acute distress HEAD: No signs of trauma, normocephalic, atraumatic EYES: PERRLA, EOMI, sclera anicteric, conjunctiva clear ENT: Auricles normal inspection, hearing grossly normal, nares patent, oropharynx clear without exudates. Moist mucosa NECK: Normal ROM, supple, no lymphadenopathy, JVD, or masses LUNGS: No distress, speaks full sentences, clear to auscultation bilaterally HEART: Regular rate and rhythm, normal S1 and S2, no murmurs, rubs or gallops, peripheral pulses normal and equal bilaterally. ABDOMEN: Soft, nontender, normoactive bowel sounds. No guarding, no rebound. No masses EXTREMITIES: Normal inspection, Normal range of motion, no edema. No clubbing or cyanosis. NEUROLOGICAL: Aphasia noted, moves extremities equally, sensory intact, not following full commands, gait deferred SKIN: Warm, Dry, normal turgor, no rashes or lesions noted. CBCD WBC 9.2 K/mm3 (4.0-10.0) D 11/17/17 06:30 RBC 4.57 M/mm3 (3.60-5.2) 11/17/17 06:30 Hgb 14.0 GM/dL (10.7-15.3) 11/17/17 06:30 Hct 41.9 % (32.4-45.2) 11/17/17 06:30 MCV 91.7 fl (80-96) 11/17/17 06:30 MCHC 33.5 g/dl (32.0-36.0) 11/17/17 06:30 RDW 13.1 % (11.6-15.6) 11/17/17 06:30 Plt Count 246 K/MM3 (134-434) 11/17/17 06:30 MPV 10.9 fl (7.5-11.1) 11/17/17 06:30 CMP Sodium 139 mmol/L (136-145) 11/17/17 06:30 Potassium 4.7 mmol/L (3.5-5.1) 11/17/17 06:30 Chloride 106 mmol/L (98-107) 11/17/17 06:30 Carbon Dioxide 20 mmol/L (21-32) L 11/17/17 06:30 Anion Gap 13 (8-16) 11/17/17 06:30 BUN 13 mg/dL (7-18) 11/17/17 06:30 Creatinine 1.0 mg/dL (0.55-1.02) 11/17/17 06:30 Creat Clearance w eGFR 52.69 (>60) 11/17/17 06:30 Calcium 9.1 mg/dL (8.5-10.1) 11/17/17 06:30 Total Bilirubin 0.6 mg/dL (0.2-1.0) 11/17/17 06:30 AST 25 U/L (15-37) 11/17/17 06:30 ALT 41 U/L (12-78) 11/17/17 06:30 Alkaline Phosphatase 68 U/L (45-117) 11/17/17 06:30 Total Protein 7.8 g/dl (6.4-8.2) 11/17/17 06:30 Albumin 3.8 g/dl (3.4-5.0) 11/17/17 06:30 CT head, MRI brain reviewed Echo reviewed Carotid Doppler reviewed Medical Decision Making Ms. Constantino is an 86 yo female w/ pmh of NIDDM and baseline dementia BIBA after homemaking rehabilitation consultant noticed her to be more altered than usual. Patient was recently admitted 11/07-11/09 for similar presentation and found to have UTI for which she was treated with Cefuroxime (still undergoing treatment). MRI brain reviewed Ct head reviewed Carotid Doppler reviewed, repeat reviewed Echo reviewed, Cardiology note reviewed, considering SONIA, no objection, would like be for tomorrow Monitor blood pressure, goal <140/90 for now, <130/80 as outpatient ASA switched to Aggernox LDL reviewed, 79, continue statin PT/OT, discussed with therapist today Rehab placement DVT ppx
[2017-11-20] MEDS ORDERED: PT OWN MED DRAWER 7, Y5N ONE ×2 (10:38→16:32)
[2017-11-20] MEDS: MULTIVITAMINS (DAILY MVI) TABLET (FP) PO SCH (10:41)
--- NOTE | 2017-11-20 14:01 | PN ---
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 Responding to some questions eg name, "Oh I'm much better", naming some body parts. Tolerating diet.Perseveration on responses. Selected Entries 11/19/17 11/19/17 11/19/17 02:00 06:00 09:26 Breakfast Lunch Supper Temperature 98.3 F 98.6 F 98.4 F 11/19/17 11/19/17 11/19/17 10:18 15:35 18:35 Breakfast 75% Lunch 50% Supper Temperature 99.1 F 11/19/17 11/19/17 11/20/17 18:42 22:00 01:47 Breakfast Lunch Supper 100% Temperature 99.5 F 99.1 F 11/20/17 11/20/17 06:00 10:00 Breakfast 0 Lunch Supper Temperature 98.6 F 98.8 F Laboratory Tests 11/17/17 06:30 WBC 9.2 D Improving Language function. Pt will benefit from continued Aphasia therapy upon d/c
--- NOTE | 2017-11-20 16:16 | PN ---
Progress Note, Physician Chief Complaint: MORE AWAKE TODAY SONIA SCHEDULED FOR TOMORROW - Current Medication List Current Medications: Active Medications Dipyridamole/Aspirin (Aggrenox -) 1 combo PO BID [facility] Last Admin: 11/19/17 21:36 Dose: 1 combo Heparin Sodium (Porcine) (Heparin -) 5,000 unit SQ TID [facility] Last Admin: 11/20/17 05:37 Dose: 5,000 unit Insulin Aspart (Novolog Vial Sliding Scale -) 1 vial SQ ACHS [facility]; Protocol Last Admin: 11/20/17 12:43 Dose: 8 units Multivitamins/Minerals/Vitamin C (Tab-A-Vit -) 1 tab PO DAILY [facility] Last Admin: 11/20/17 10:41 Dose: 1 tab Nystatin (Nystatin Oral Suspension -) 500,000 units PO Q6HPO [facility] Last Admin: 11/20/17 11:30 Dose: 500,000 units Rosuvastatin Calcium (Crestor -) 10 mg PO HS [facility] Last Admin: 11/19/17 21:36 Dose: 10 mg Senna (Senna -) 1 tab PO HS [facility] - Objective Vital Signs: Vital Signs Temperature 98.7 F 11/20/17 13:15 Pulse Rate 81 11/20/17 13:15 Respiratory Rate 18 11/20/17 13:15 Blood Pressure 136/66 11/20/17 13:15 O2 Sat by Pulse Oximetry (%) 96 11/19/17 21:00 Constitutional: Yes: Mild Distress Eyes: Yes: WNL HENT: Yes: WNL Neck: Yes: WNL Cardiovascular: Yes: Pulse Irregular Respiratory: Yes: WNL Gastrointestinal: Yes: WNL Genitourinary: Yes: Incontinence Musculoskeletal: Yes: Muscle Weakness Extremities: Yes: WNL Edema: No Peripheral Pulses WNL: Yes Integumentary: Yes: WNL Wound/Incision: Yes: Clean/Dry Neurological: Yes: Pre-Existing Deficit, Unsteady Gait, Weakness ...Motor Strength: LLE, RLE Psychiatric: Yes: Other Labs: CBC, BMP 11/17/17 06:30 11/17/17 06:30 INR, PTT INR 1.13 (0.82-1.09) 11/14/17 15:38 Problem List - Problems (1) Acute ischemic stroke Code(s): I63.9 - CEREBRAL INFARCTION, UNSPECIFIED (2) Altered mental status Code(s): R41.82 - ALTERED MENTAL STATUS, UNSPECIFIED Qualifiers: Altered mental status type: unspecified Qualified Code(s): R41.82 - Altered mental status, unspecified (3) Expressive aphasia Code(s): R47.01 - APHASIA (4) Diabetes mellitus Code(s): E11.9 - TYPE 2 DIABETES MELLITUS WITHOUT COMPLICATIONS Qualifiers: Diabetes mellitus type: type 2 Diabetes mellitus senior living insulin use: without deli/bakery associate use Diabetes mellitus complication status: without complication Qualified Code(s): E11.9 - Type 2 diabetes mellitus without complications Assessment/Plan SWALLOW EVAL SPEECH PATHOLOGY CARDIO/NEURO EVAL MONITOR TELEMETRY R/O AFIB CAROTID DOPPLER REPEAT TO VIEW LEFT SIDE AGGRENOX/ASA HEPARIN SQ MONITOR BGM IVF
[2017-11-20] MEDS: ASPIRIN/DIPYRIDAMOLE 25 MG/200 MG CAPSULE (FP) PO SCH ×2 (16:34→23:04)
[2017-11-20] MEDS: ROSUVASTATIN CA 10 MG TABLET (FP) PO SCH (23:03)
[2017-11-20] MEDS: SENNOSIDES 8.6MG TABLET (FP) PO SCH (23:03)
[2017-11-21] MEDS: NYSTATIN 500,000 UNITS/5 ML SUSPENSION PO SCH ×3 (06:48→17:19)
[2017-11-21] MEDS: INSULIN SLIDING SCALE (NOVOLOG) 1 VIAL SQ SCH ×4 (06:48→21:21)
[2017-11-21] MEDS: HEPARIN NA (PORCINE) 5,000 UNITS/ML 1ML VIAL SQ SCH ×3 (06:48→21:20)
[2017-11-21] MEDS ORDERED: LIDOCAINE VISCOUS 2% ORAL/TOP 20 ML UNIT-DOSE CUP ONE (08:20)
[2017-11-21] MEDS ORDERED: ePHEDrine SULFATE 50 MG/1 ML AMPULE ONE (08:24)
[2017-11-21] MEDS ORDERED: PHENYLEPHRINE HCL 10 MG/1 ML SINGLE DOSE VIAL ONE (08:24)
[2017-11-21] MEDS ORDERED: LIDOCAINE VISCOUS 2% ORAL/TOP 20 ML UNIT-DOSE CUP MM ONE (08:28)
--- NOTE | 2017-11-21 09:14 | PN ---
Progress Note, Physician Chief Complaint: Events noted Currently verbal, but with with organic brain/dementia Clinically improved SONIA this am History of Present Illness: Patient was seen and examined. Awake. Chart was reviewed Denies chest pain, SOB or palpitations Remains in sinus rhythm on radiation monitor SONIA done this am. Diffuse atherosclerotic plaque in ascending thoracic aorta, aortic arch and descending thoracic aorta - Current Medication List Current Medications: Active Medications Dipyridamole/Aspirin (Aggrenox -) 1 combo PO BID [facility] Last Admin: 11/20/17 23:04 Dose: 1 combo Heparin Sodium (Porcine) (Heparin -) 5,000 unit SQ TID [facility] Last Admin: 11/21/17 06:48 Dose: 5,000 unit Insulin Aspart (Novolog Vial Sliding Scale -) 1 vial SQ ACHS [facility]; Protocol Last Admin: 11/21/17 06:48 Dose: Not Given Multivitamins/Minerals/Vitamin C (Tab-A-Vit -) 1 tab PO DAILY [facility] Last Admin: 11/20/17 10:41 Dose: 1 tab Nystatin (Nystatin Oral Suspension -) 500,000 units PO Q6HPO [facility] Last Admin: 11/21/17 06:48 Dose: 500,000 units Rosuvastatin Calcium (Crestor -) 10 mg PO HS [facility] Last Admin: 11/20/17 23:03 Dose: 10 mg Senna (Senna -) 1 tab PO HS [facility] Last Admin: 11/20/17 23:03 Dose: 1 tab - Objective Vital Signs: Vital Signs Temperature 98.1 F 11/21/17 06:00 Pulse Rate 78 11/21/17 09:05 Respiratory Rate 16 11/21/17 09:05 Blood Pressure 116/55 11/21/17 09:05 O2 Sat by Pulse Oximetry (%) 98 11/21/17 09:05 HENT: Yes: Atraumatic Neck: Yes: Supple Cardiovascular: Yes: Regular Rate and Rhythm, S1, S2 Respiratory: Yes: CTA Bilaterally Gastrointestinal: Yes: Normal Bowel Sounds, Soft. No: Tenderness Edema: No Problem List - Problems (1) Acute ischemic stroke Code(s): I63.9 - CEREBRAL INFARCTION, UNSPECIFIED (2) Expressive aphasia Code(s): R47.01 - APHASIA (3) Diabetes mellitus Code(s): E11.9 - TYPE 2 DIABETES MELLITUS WITHOUT COMPLICATIONS Qualifiers: Diabetes mellitus type: type 2 Diabetes mellitus care home insulin use: without nurses supervisor use Diabetes mellitus complication status: without complication Qualified Code(s): E11.9 - Type 2 diabetes mellitus without complications (4) HTN (hypertension) Code(s): I10 - ESSENTIAL (PRIMARY) HYPERTENSION Qualifiers: Hypertension type: essential hypertension Qualified Code(s): I10 - Essential (primary) hypertension (5) Hypercholesterolemia Code(s): E78.0 - PURE HYPERCHOLESTEROLEMIA * DO NOT USE * (6) Syncope and collapse Code(s): R55 - SYNCOPE AND COLLAPSE Assessment/Plan 1. Post expressive aphasia currently verbal, acute stroke suspect embolic etiology - clinically improved, underlying organic brain syndrome/dementia 2. HTN/HCVD 3. Type 2 diabetes mellitus 4. Hypercholesterolemia 5. 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 Consider care home arrhythmia monitor if telemetry monitoring unrevealing for PAF 2. Continue Aggrenox 1 bid, Crestor 10 qhs. Continue Valsartan 40 mg once a day as tolerated and uptitrate 3. Official SONIA report to follow. Patient tolerated procedure. Consent obtained from daughter. Normal LV systolic function, mild MR, diffuse atherosclerotic plaque in the aorta with some ulcerated plaque and calcified plaque. 4. DVT prophylaxis, PT, speech therapy Discussed with Dr. Hampton regarding medical therapy to continue Aggrenox as patient is clinically improved Trip Villanueva MD
--- NOTE | 2017-11-21 09:15 | PN ---
Progress Note (short form) - Note Progress Note: Neurology History of Present Illness Ms. Constantino is an 86 yo female w/ pmh of NIDDM and baseline dementia BIBA after home connect lpn noticed her to be more altered than usual. Patient was recently admitted 11/07-11/09 for similar presentation and found to have UTI for which she was treated with Cefuroxime (still undergoing treatment). She did not appear to have focal deficits but with aphasia. Completed CT head and MRI brain with large size CVA noted, temporal, parietal and frontal. Discussed with nurse. Switched ASA to aggrenox. Increased statin. Transfered to stroke unit recommended. Carotid Doppler and echo ordered. Telemetry monitoring. Cardiology consult recommended, possibly embolic given size and location. Not in TPA window. Completed Echo which did not show significant dysfunction. Carotids completed but did not visualize L carotids initially, Repeated them to better visualize L side. Did not show significant hemodynamic stenosis. LDL reviewed, 79 at this time. Patient does have some RLE deficits and ongoing aphasia. SONIA completed, discussed with cards, diffuse plaques and atherosclerotic disease noted. She is on aggrenox and can remain on this, anvilsmith agreed. Active Medications Dipyridamole/Aspirin (Aggrenox -) 1 combo PO BID [facility] Last Admin: 11/20/17 23:04 Dose: 1 combo Heparin Sodium (Porcine) (Heparin -) 5,000 unit SQ TID [facility] Last Admin: 11/21/17 06:48 Dose: 5,000 unit Insulin Aspart (Novolog Vial Sliding Scale -) 1 vial SQ ACHS [facility]; Protocol Last Admin: 11/21/17 06:48 Dose: Not Given Multivitamins/Minerals/Vitamin C (Tab-A-Vit -) 1 tab PO DAILY [facility] Last Admin: 11/20/17 10:41 Dose: 1 tab Nystatin (Nystatin Oral Suspension -) 500,000 units PO Q6HPO [facility] Last Admin: 11/21/17 06:48 Dose: 500,000 units Rosuvastatin Calcium (Crestor -) 10 mg PO HS [facility] Last Admin: 11/20/17 23:03 Dose: 10 mg Senna (Senna -) 1 tab PO HS [facility] Last Admin: 11/20/17 23:03 Dose: 1 tab *Physical Exam Vital Signs Period Temp Pulse Resp BP Sys/Mcgraw Pulse Ox Last 24 Hr 98.1 F-98.8 F 73-100 16-20 89-158/47-100 96-98 GENERAL: Awake, altered, in no acute distress HEAD: No signs of trauma, normocephalic, atraumatic EYES: PERRLA, EOMI, sclera anicteric, conjunctiva clear ENT: Auricles normal inspection, hearing grossly normal, nares patent, oropharynx clear without exudates. Moist mucosa NECK: Normal ROM, supple, no lymphadenopathy, JVD, or masses LUNGS: No distress, speaks full sentences, clear to auscultation bilaterally HEART: Regular rate and rhythm, normal S1 and S2, no murmurs, rubs or gallops, peripheral pulses normal and equal bilaterally. ABDOMEN: Soft, nontender, normoactive bowel sounds. No guarding, no rebound. No masses EXTREMITIES: Normal inspection, Normal range of motion, no edema. No clubbing or cyanosis. NEUROLOGICAL: Aphasia noted, moves extremities equally, sensory intact, not following full commands, gait deferred SKIN: Warm, Dry, normal turgor, no rashes or lesions noted. CBCD WBC 9.2 K/mm3 (4.0-10.0) D 11/17/17 06:30 RBC 4.57 M/mm3 (3.60-5.2) 11/17/17 06:30 Hgb 14.0 GM/dL (10.7-15.3) 11/17/17 06:30 Hct 41.9 % (32.4-45.2) 11/17/17 06:30 MCV 91.7 fl (80-96) 11/17/17 06:30 MCHC 33.5 g/dl (32.0-36.0) 11/17/17 06:30 RDW 13.1 % (11.6-15.6) 11/17/17 06:30 Plt Count 246 K/MM3 (134-434) 11/17/17 06:30 MPV 10.9 fl (7.5-11.1) 11/17/17 06:30 CMP Sodium 139 mmol/L (136-145) 11/17/17 06:30 Potassium 4.7 mmol/L (3.5-5.1) 11/17/17 06:30 Chloride 106 mmol/L (98-107) 06/22/18 06:30 Carbon Dioxide 20 mmol/L (21-32) L 11/17/17 06:30 Anion Gap 13 (8-16) 11/17/17 06:30 BUN 13 mg/dL (7-18) 11/17/17 06:30 Creatinine 1.0 mg/dL (0.55-1.02) 11/17/17 06:30 Creat Clearance w eGFR 52.69 (>60) 11/17/17 06:30 Calcium 9.1 mg/dL (8.5-10.1) 11/17/17 06:30 Total Bilirubin 0.6 mg/dL (0.2-1.0) 11/17/17 06:30 AST 25 U/L (15-37) 11/17/17 06:30 ALT 41 U/L (12-78) 11/17/17 06:30 Alkaline Phosphatase 68 U/L (45-117) 11/17/17 06:30 Total Protein 7.8 g/dl (6.4-8.2) 11/17/17 06:30 Albumin 3.8 g/dl (3.4-5.0) 11/17/17 06:30 CT head, MRI brain reviewed Echo reviewed Carotid Doppler reviewed Medical Decision Making Ms. Constantino is an 86 yo female w/ pmh of NIDDM and baseline dementia BIBA after home connect lpn noticed her to be more altered than usual. Patient was recently admitted 11/07-11/09 for similar presentation and found to have UTI for which she was treated with Cefuroxime (still undergoing treatment). MRI brain reviewed Ct head reviewed Carotid Doppler reviewed, repeat reviewed Echo reviewed, SONIA completed, discussed with Dr. Dominique Monitor blood pressure, goal <140/90 for now, <130/80 as outpatient ASA switched to Aggernox, can be continued LDL reviewed, 79, continue statin PT/OT, discussed with therapist today Rehab placement, spoke to correctional counselor/case manager ELISABETH ppx
--- NOTE | 2017-11-21 10:58 | PN ---
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 Expressive/receptive deficitsa improving. Producing some fluent speech well eg I live with my son. I'm doing much better. Yes/.no confusion. Difficulty following 1 stage commands 50% of tme.Perseverative and echolalic at times. Speaks Czech as well as Kyrgyz. No dysarthria. Lower dentition anteriorally only. No dentures noted in her room. Swallowing well. Tongue coated , c/w thrush. IMP: Thrush Aphasia improving. Excellent rehab candidate. Would benefit from intensive rehabilitation REC: Please obtain dentures from family. Upgrade to dys ground/thin liquid. Ideally OOB in chair for meals
[2017-11-21] MEDS: MULTIVITAMINS (DAILY MVI) TABLET (FP) PO SCH (11:16)
[2017-11-21] MEDS: ASPIRIN/DIPYRIDAMOLE 25 MG/200 MG CAPSULE (FP) PO SCH ×2 (11:16→21:20)
[2017-11-21 14:14] VITALS: BMI 25.4
--- NOTE | 2017-11-21 15:45 | DS ---
Physical Examination Vital Signs: Vital Signs Temperature 98.4 F 11/21/17 11:21 Pulse Rate 73 11/21/17 11:21 Respiratory Rate 18 11/21/17 11:21 Blood Pressure 116/62 11/21/17 11:21 O2 Sat by Pulse Oximetry (%) 95 11/21/17 10:11 Constitutional: Yes: No Distress Eyes: Yes: WNL HENT: Yes: WNL Neck: Yes: WNL Cardiovascular: Yes: WNL Respiratory: Yes: WNL Gastrointestinal: Yes: WNL ...Rectal Exam: Yes: WNL Musculoskeletal: Yes: Muscle Weakness Extremities: Yes: WNL Edema: Yes Integumentary: Yes: Rash Wound/Incision: Yes: Clean/Dry Neurological: Yes: Confusion, Pre-Existing Deficit, Unsteady Gait ...Motor Strength: LLE, RLE Psychiatric: Yes: Other Labs: CBC, BMP 11/17/17 06:30 11/17/17 06:30 Discharge Summary Reason For Visit: AMS Current Active Problems Acute ischemic stroke (Acute) Altered mental status (Acute) Expressive aphasia (Acute) Procedures: Principal: MRI BRAIN Hospital Course: ADMITTED NEUROLOGICAL/CARDIOLOGY , MRI BRAIN, SONIA DONE, ACUTE CVA WILL NEED ABBRESSIVE REHAB WITH PT/OT/SPEECH PATHOLOGY Condition: Guarded - Instructions Diet, Activity, Other Instructions: DYSPHAGIA PRECAUTIONS READ SPEECH PATHOLOGY REHAB REPORT Referrals: Terri Chavez MD [Primary Care Provider] - [facility] - Home Medications Comprehensive Discharge Medication List: Ambulatory Orders Ammonium Lactate 1 ml TP DAILY 03/15/16 Aspirin [ASA -] 81 mg PO DAILY 03/15/16 Calcium Carb/Vitamin D3/Vit K1 [Calcium + D Soft Chewable Tab] 1 each PO DAILY 03/15/16 Multivitamin [Poly-Vitamin] 1 tab PO DAILY 03/15/16 Solifenacin Succinate [Vesicare -] 10 mg PO DAILY 03/15/16 Vitamin B Complex 1 each PO DAILY 03/15/16 Multivitamins [Multivit ([facility])] 1 tab PO DAILY tab 11/08/17 Aspirin/Dipyridamole [Aggrenox -] 1 combo PO BID capsule 11/21/17 Heparin - 5,000 unit SQ TID vial 11/21/17 Insulin Sliding Scale [Novolog Vial Sliding Scale -] 1 vial SQ ACHS units 11/21 Nystatin Oral Suspension - [Nystatin Oral Susp 793909 Units/5 ML -] 500,000 units PO Q6HPO cup 11/21/17 Rosuvastatin [Crestor -] 10 mg PO HS tablet 11/21/17 Sennosides [Senna -] 1 tab PO HS tablet 11/21/17 Sitagliptin Phosphate [Januvia -] 50 mg PO DAILY@0700 tablet 11/21/17 metFORMIN HCL [Glucophage -] 500 mg PO DAILY@0700 tablet 11/21/17
[2017-11-21] MEDS ORDERED: PT OWN MED DRAWER 7, Y5N ONE (21:10)
[2017-11-21] MEDS ORDERED: INSULIN (NOVOLOG) ASPART 100 UNITS/ML 10ML VIAL ONE (21:11)
[2017-11-21] MEDS: ROSUVASTATIN CA 10 MG TABLET (FP) PO SCH (21:20)
[2017-11-21] MEDS: SENNOSIDES 8.6MG TABLET (FP) PO SCH (21:21)
--- NOTE | 2017-11-21 23:50 | PN ---
Progress Note (short form) - Note Progress Note: awake comfortable no complaint Abnormal Lab Results 11/21/17 06:00 TSH 0.20 L Current Active Problems Acute ischemic stroke (Acute) Altered mental status (Acute) Expressive aphasia (Acute) diabetes mellitus type 2 abnormal tft plan: repeat tft outpatient continue janumet 50/500mg daily Problem List - Problems (1) Acute ischemic stroke Code(s): I63.9 - CEREBRAL INFARCTION, UNSPECIFIED (2) Altered mental status Code(s): R41.82 - ALTERED MENTAL STATUS, UNSPECIFIED Qualifiers: Altered mental status type: unspecified Qualified Code(s): R41.82 - Altered mental status, unspecified (3) Expressive aphasia Code(s): R47.01 - APHASIA (4) Abnormal thyroid exam Code(s): R94.6 - ABNORMAL RESULTS OF THYROID FUNCTION STUDIES (5) DVT prophylaxis Code(s): [id number] - (6) Diabetes mellitus Code(s): E11.9 - TYPE 2 DIABETES MELLITUS WITHOUT COMPLICATIONS Qualifiers: Diabetes mellitus type: type 2 Diabetes mellitus intermediate teacher insulin use: without custodial use Diabetes mellitus complication status: without complication Qualified Code(s): E11.9 - Type 2 diabetes mellitus without complications
[2017-11-22] MEDS: NYSTATIN 500,000 UNITS/5 ML SUSPENSION PO SCH ×3 (01:01→12:00)
[2017-11-22] MEDS: HEPARIN NA (PORCINE) 5,000 UNITS/ML 1ML VIAL SQ SCH ×2 (06:23→14:00)
[2017-11-22] MEDS: INSULIN SLIDING SCALE (NOVOLOG) 1 VIAL SQ SCH ×2 (06:23→12:00)
[2017-11-22] MEDS ORDERED: sitaGLIPtin PHOSPHATE 50 MG TABLET PO SCH (07:00)
[2017-11-22] MEDS ORDERED: metFORMIN HCL 500 MG TABLET (FP) PO SCH (07:00)
--- NOTE | 2017-11-22 08:59 | PN ---
Progress Note (short form) - Note Progress Note: Neurology History of Present Illness Ms. Constantino is an 86 yo female w/ pmh of NIDDM and baseline dementia BIBA after home health lpn noticed her to be more altered than usual. Patient was recently admitted 11/07-11/09 for similar presentation and found to have UTI for which she was treated with Cefuroxime (still undergoing treatment). She did not appear to have focal deficits but with aphasia. Completed CT head and MRI brain with large size CVA noted, temporal, parietal and frontal. Discussed with nurse. Switched ASA to aggrenox. Increased statin. Transfered to stroke unit recommended. Carotid Doppler and echo ordered. Telemetry monitoring. Cardiology consult recommended, possibly embolic given size and location. Not in TPA window. Completed Echo which did not show significant dysfunction. Carotids completed but did not visualize L carotids initially, Repeated them to better visualize L side. Did not show significant hemodynamic stenosis. LDL reviewed, 79 at this time. Patient does have some RLE deficits and aphasia, but these have improved through her course. SONIA completed, discussed with cards, diffuse plaques and atherosclerotic disease noted. 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 No new events while admitted. Active Medications Dipyridamole/Aspirin (Aggrenox -) 1 combo PO BID [facility] Last Admin: 11/21/17 21:20 Dose: 1 combo Heparin Sodium (Porcine) (Heparin -) 5,000 unit SQ TID [facility] Last Admin: 11/22/17 06:23 Dose: 5,000 unit Insulin Aspart (Novolog Vial Sliding Scale -) 1 vial SQ ACHS [facility]; Protocol Last Admin: 11/22/17 06:23 Dose: 2 units Metformin HCl (Glucophage -) 500 mg PO DAILY@0700 [facility] Last Admin: 11/22/17 06:23 Dose: 500 mg Multivitamins/Minerals/Vitamin C (Tab-A-Vit -) 1 tab PO DAILY [facility] Last Admin: 11/21/17 11:16 Dose: 1 tab Nystatin (Nystatin Oral Suspension -) 500,000 units PO Q6HPO [facility] Last Admin: 11/22/17 06:23 Dose: 500,000 units Rosuvastatin Calcium (Crestor -) 10 mg PO HS [facility] Last Admin: 11/21/17 21:20 Dose: 10 mg Senna (Senna -) 1 tab PO HS [facility] Last Admin: 11/21/17 21:21 Dose: 1 tab Sitagliptin Phosphate (Januvia -) 50 mg PO DAILY@0700 [facility] Last Admin: 11/22/17 06:23 Dose: 50 mg *Physical Exam Vital Signs Temperature 98.6 F 11/22/17 05:55 Pulse Rate 72 11/22/17 05:55 Respiratory Rate 20 11/22/17 05:55 Blood Pressure 137/65 11/22/17 05:55 O2 Sat by Pulse Oximetry (%) 94 L 11/21/17 21:00 GENERAL: Awake, altered, in no acute distress HEAD: No signs of trauma, normocephalic, atraumatic EYES: PERRLA, EOMI, sclera anicteric, conjunctiva clear ENT: Auricles normal inspection, hearing grossly normal, nares patent, oropharynx clear without exudates. Moist mucosa NECK: Normal ROM, supple, no lymphadenopathy, JVD, or masses LUNGS: No distress, speaks full sentences, clear to auscultation bilaterally HEART: Regular rate and rhythm, normal S1 and S2, no murmurs, rubs or gallops, peripheral pulses normal and equal bilaterally. ABDOMEN: Soft, nontender, normoactive bowel sounds. No guarding, no rebound. No masses EXTREMITIES: Normal inspection, Normal range of motion, no edema. No clubbing or cyanosis. NEUROLOGICAL: Aphasia noted, moves extremities equally, sensory intact, not following full commands, gait deferred SKIN: Warm, Dry, normal turgor, no rashes or lesions noted. CBCD WBC 9.2 K/mm3 (4.0-10.0) D 11/17/17 06:30 RBC 4.57 M/mm3 (3.60-5.2) 11/17/17 06:30 Hgb 14.0 GM/dL (10.7-15.3) 11/17/17 06:30 Hct 41.9 % (32.4-45.2) 11/17/17 06:30 MCV 91.7 fl (80-96) 11/17/17 06:30 MCHC 33.5 g/dl (32.0-36.0) 11/17/17 06:30 RDW 13.1 % (11.6-15.6) 11/17/17 06:30 Plt Count 246 K/MM3 (134-434) 11/17/17 06:30 MPV 10.9 fl (7.5-11.1) 11/17/17 06:30 CMP Sodium 139 mmol/L (136-145) 11/17/17 06:30 Potassium 4.7 mmol/L (3.5-5.1) 11/17/17 06:30 Chloride 106 mmol/L (98-107) 11/17/17 06:30 Carbon Dioxide 20 mmol/L (21-32) L 11/17/17 06:30 Anion Gap 13 (8-16) 11/17/17 06:30 BUN 13 mg/dL (7-18) 11/17/17 06:30 Creatinine 1.0 mg/dL (0.55-1.02) 11/17/17 06:30 Creat Clearance w eGFR 52.69 (>60) 11/17/17 06:30 Calcium 9.1 mg/dL (8.5-10.1) 11/17/17 06:30 Total Bilirubin 0.6 mg/dL (0.2-1.0) 11/17/17 06:30 AST 25 U/L (15-37) 11/17/17 06:30 ALT 41 U/L (12-78) 11/17/17 06:30 Alkaline Phosphatase 68 U/L (45-117) 11/17/17 06:30 Total Protein 7.8 g/dl (6.4-8.2) 11/17/17 06:30 Albumin 3.8 g/dl (3.4-5.0) 11/17/17 06:30 CT head, MRI brain reviewed Echo reviewed Carotid Doppler reviewed Medical Decision Making 86 yo female w/ pmh of NIDDM and baseline dementia BIBA after home health lpn noticed her to be more altered than usual. Patient was recently admitted 11/07-11/09 for similar presentation and found to have UTI for which she was treated with Cefuroxime (still undergoing treatment). MRI brain as above Ct head as above Carotid Doppler as above Echo as above SONIA as above Monitor blood pressure, goal <140/90 for now, <130/80 as outpatient ASA switched to Aggernox, can be continued LDL reviewed, 79, continue statin PT/OT, discussed with therapist today Rehab placement Neurologically stable DVT ppx
[2017-11-22] MEDS: ASPIRIN/DIPYRIDAMOLE 25 MG/200 MG CAPSULE (FP) PO SCH (10:13)
[2017-11-22] MEDS: MULTIVITAMINS (DAILY MVI) TABLET (FP) PO SCH (10:13)
--- NOTE | 2017-11-22 10:23 | PN ---
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 Expressive/receptive deficits continue to improve. Producing some fluent speech well Efren was born in [place]. I'm in the hospital. I'm doing much better. Yes/.no confusion. Difficulty following 1 stage commands 50% of tme.Perseverative and echolalic at times. Speaks Bangladeshi as well as Norwegian. Swallowing well. Tongue still quite coated, c/w thrush. Nursing giving mouth care to reduce coating, as possible. Pt on Nystatin since 11/18. IMP: Thrush. Tongue still quite coated. Pt on Nystatin since 11/18. Aphasia improving. Excellent rehab candidate. Would benefit from intensive rehabilitation REC: Thrush mgmt? Please obtain dentures from family. Upgrade to dys ground/thin liquid. Ideally OOB in chair for meals
--- NOTE | 2017-11-22 11:15 | PN ---
Progress Note, Physician History of Present Illness: Expressive aphasia improving. No PAF on telemetry. - Current Medication List Current Medications: Active Medications Dipyridamole/Aspirin (Aggrenox -) 1 combo PO BID [facility] Last Admin: 11/22/17 10:13 Dose: 1 combo Heparin Sodium (Porcine) (Heparin -) 5,000 unit SQ TID [facility] Last Admin: 11/22/17 06:23 Dose: 5,000 unit Insulin Aspart (Novolog Vial Sliding Scale -) 1 vial SQ ACHS [facility]; Protocol Last Admin: 11/22/17 06:23 Dose: 2 units Metformin HCl (Glucophage -) 500 mg PO DAILY@0700 [facility] Last Admin: 11/22/17 06:23 Dose: 500 mg Multivitamins/Minerals/Vitamin C (Tab-A-Vit -) 1 tab PO DAILY [facility] Last Admin: 11/22/17 10:13 Dose: 1 tab Nystatin (Nystatin Oral Suspension -) 500,000 units PO Q6HPO [facility] Last Admin: 11/22/17 06:23 Dose: 500,000 units Rosuvastatin Calcium (Crestor -) 10 mg PO [facility] Last Admin: 11/21/17 21:20 Dose: 10 mg Senna (Senna -) 1 tab PO [facility] Last Admin: 11/21/17 21:21 Dose: 1 tab Sitagliptin Phosphate (Januvia -) 50 mg PO DAILY@0700 [facility] Last Admin: 11/22/17 06:23 Dose: 50 mg - Objective Vital Signs: Vital Signs Temperature 98 F 11/22/17 10:00 Pulse Rate 80 11/22/17 10:00 Respiratory Rate 20 11/22/17 10:00 Blood Pressure 135/70 11/22/17 10:00 O2 Sat by Pulse Oximetry (%) 94 L 11/21/17 21:00 Constitutional: Yes: No Distress, Calm Neck: Yes: Supple Cardiovascular: Yes: Regular Rate and Rhythm Respiratory: Yes: Regular, Diminished, On Nasal O2 Gastrointestinal: Yes: Normal Bowel Sounds, Soft Edema: No Neurological: Yes: Aphasia, Weakness ...Motor Strength: LUE Labs: CBC, BMP 11/17/17 06:30 11/17/17 06:30 INR, PTT INR 1.13 (0.82-1.09) 11/14/17 15:38 - ....Imaging EKG: Report Reviewed (Tele: No PAF) Problem List - Problems (1) Acute ischemic stroke Code(s): I63.9 - CEREBRAL INFARCTION, UNSPECIFIED (2) HTN (hypertension) Code(s): I10 - ESSENTIAL (PRIMARY) HYPERTENSION Qualifiers: Hypertension type: essential hypertension Qualified Code(s): I10 - Essential (primary) hypertension (3) Hypercholesterolemia Code(s): E78.0 - PURE HYPERCHOLESTEROLEMIA * DO NOT USE * (4) Expressive aphasia Code(s): R47.01 - APHASIA Assessment/Plan 11/16/2017 Echo: Normal biventricular size and fxn, LVEF 65-70%, tr AR 11/16/2017 Carotid U/S: LICA poorly visualized, TIMOTHY no stenosis 03/16/2016 Transthoracic echocardiography Normal LV systolic function, mild TR, trace MR 03/16/2016 Carotid U/S: Atherosclerotic plaque w/o stenosis 11/15/2017 Brain MRI: Large acute/subacute left temporal, left posterior frontal and left parietal lobes, multiple lacunar infarcts left frontal lobe 11/21/2017 SONIA: Normal LV systolic function, mild MR, diffuse atherosclerotic plaque in the aorta with some ulcerated plaque and calcified plaque, no PHYLLIS thrombus 1. Expressive aphasia, acute stroke suspect embolic etiology improving 2. HTN/HCVD 3. Type 2 diabetes mellitus 4. Hypercholesterolemia 5. 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 UTI PLAN: 1. No episodes of PAF on telemetry thus far, will need extermination supervisor arrhythmia monitor if telemetry monitoring unrevealing for PAF 2. Continue Aggrenox 1 bid, Crestor 10 qhs, start Diovan 40 qd as hemodynamics tolerate 3. DVT prophylaxis, PT, speech therapy->acute rehab
[2017-11-22 14:12] VITALS: BP 136/66; PULSE 55; TEMP 97.8
[2017-11-23] MEDS ORDERED: VALSARTAN 40 MG TABLET (FP) PO SCH (10:00)
== END 2017-11-22 17:09 | DRG 65 ==
LOC: JER 13:29 → JERBED 16:23 → J8W 21:28 → OBSVTOIN 11-15 16:13 → J4S 11-15 18:28
PROVIDERS: ADMIT Family Medicine; ATTEND Family Medicine
PROC: B246ZZ4 Ultrasonography of Right and Left Heart, Transesophageal (ICD-10-PCS; principal; 2017-11-21 08:15)
DX: I63.9 Cerebral infarction, unspecified (principal); N39.0 Urinary tract infection, site not specified; R47.01 Aphasia; E78.5 Hyperlipidemia, unspecified; E11.9 Type 2 diabetes mellitus without complications; R55 Syncope and collapse; I11.9 Hypertensive heart disease without heart failure; I69.320 Aphasia following cerebral infarction; E04.1 Nontoxic single thyroid nodule; F03.90 Unspecified dementia, unspecified severity, without behavioral disturbance, psychotic disturbance, mood disturbance, and anxiety; R26.81 Unsteadiness on feet
CPT/HCPCS: 36415; 70450-TC; 70551-TC; 71045-TC-FY; 80053; 80061; 81003; 82803; 82962; 83036; 83605; 83721; 84439; 84443; 84484; 85025; 85610; 85730; 87040; 87086; 93005; 93010; 93306-TC; 93312; 93325; 93880-TC; 97116-GP; 97162-GP; 99284-25; G0378; J1644; J7030

== ENCOUNTER 2017-12-14 23:44 | Inpatient (IN) | payer OTHER ==
--- NOTE | 2017-12-15 00:06 | PDOC ---
History of Present Illness - General History Source: Patient Exam Limitations: No Limitations - History of Present Illness Initial Comments: 12/15/17 00:20 The patient is an 87 year old female with history of hypertension, hyperlipidemia, DM, recent CVA 11/14/2017, sent to the ED [facility] for altered mental status this evening. The daughter at bedside reports the patient became less verbal this evening and more confused from her baseline. Per the daughter, the patient presented similarly with her previous CVA. No fever or chills. No nausea, vomiting, or diarrhea. No headache, blurred vision, or numbness or tingling. No focal weakness. Last known well 1700 today. <Kat Veliz - Last Filed: 12/15/17 00:37> <Rita Haines - Last Filed: 12/15/17 02:19> - General Chief Complaint: Altered Mental Status Stated Complaint: AMS Time Seen by Provider: 12/14/17 23:50 tPA Exclusion checklist 3-4.5h - Time Elapsed Date last known well: 12/14/17 Time last known well: 17:00 Elaspsed time: Day(s) and 9 Hour(s) and 19 Minutes - Thrombolytic Therapy Candidate Is patient eligible for thrombolytic therapy: No - Ineligibility reason(s) Reasons No tPA given: Outside of window - delayed arrival <Rita Haines - Last Filed: 12/15/17 02:19> NIH Stroke Scale - Last Known Well Date/Time & Onset Date Last Known Well: 12/14/17 Time Last Known Well: 17:00 - Initial Evaluation Level of consciousness: Alert Ask patient the month and their age: Answers one correctly Ask patient to open & close eyes; make fist and let go: Obeys both correctly Best gaze (horizontal eye movement): Normal Visual field testing: No visual field loss Facial paresis (Show teeth/raise eyebrows/close eyes tight): Normal symmetrical movement Motor Function: Left Arm: Normal Motor Function: Right Arm: Normal (extends arm 90 (or 45) degrees for 10 seconds without drift Motor Function: Left Leg: Normal (extends leg 30 degrees for 5 seconds without drift) Motor Function: Right Leg: Normal (extends leg 30 degrees for 5 seconds without drift) Limb Ataxia: No ataxia Sensory(Use pinprick test arms,legs,trunk,face/side to side): Normal Best language (Describe picture, name items, read sentences): No Aphasia Dysarthria (read several words): Normal articulation Extinction and Inattention: No abnormality - Total Score NIH Stroke Scale Score: 1 <Rita Haines - Last Filed: 12/15/17 02:19> Past History <FrancescoKat vidal - Last Filed: 12/15/17 00:37> - Past Medical History COPD: No Dementia: Yes Diabetes: Yes Hypercholesterolemia: Yes - Surgical History Orthopedic Surgery: Yes (hip replacement) - Immunization History Immunization Up to Date: Yes - Suicide/Smoking/Psychosocial Hx Smoking History: Never smoked Have you smoked in the past 12 months: No Information on smoking cessation initiated: No Hx Alcohol Use: No Drug/Substance Use Hx: No Substance Use Type: None <ZakiRita - Last Filed: 12/15/17 02:19> - Past Medical History Allergies/Adverse Reactions: Allergies Allergy/AdvReac Type Severity Reaction Status Date / Time No Known Allergies Allergy Verified 12/14/17 23:48 Home Medications: Ambulatory Orders Ammonium Lactate 1 ml TP DAILY 03/15/16 Aspirin [ASA -] 81 mg PO DAILY 03/15/16 Calcium Carb/Vitamin D3/Vit K1 [Calcium + D Soft Chewable Tab] 1 each PO DAILY 03/15/16 Multivitamin [Poly-Vitamin] 1 tab PO DAILY 03/15/16 Solifenacin Succinate [Vesicare -] 10 mg PO DAILY 03/15/16 Vitamin B Complex 1 each PO DAILY 03/15/16 Multivitamins [Multivit ([facility] Formulary)] 1 tab PO DAILY tab 11/08/17 Aspirin/Dipyridamole [Aggrenox -] 1 combo PO BID capsule 11/21/17 Heparin - 5,000 unit SQ TID vial 11/21/17 Insulin Sliding Scale [Novolog Vial Sliding Scale -] 1 vial SQ ACHS units 11/21 Linagliptin/Metformin HCl [Jentadueto 2.5 mg-1000 mg Tab] 1 each PO BID Nystatin Oral Suspension - [Nystatin Oral Susp 739641 Units/5 ML -] 500,000 units PO Q6HPO cup 11/21/17 Rosuvastatin [Crestor -] 10 mg PO HS tablet 11/21/17 Sennosides [Senna -] 1 tab PO HS tablet 11/21/17 Sitagliptin Phosphate [Januvia -] 50 mg PO DAILY@0700 tablet 11/21/17 metFORMIN HCL [Glucophage -] 500 mg PO DAILY@0700 tablet 11/21/17 Review of Systems - Review of Systems Able to Perform ROS?: Yes Comments:: 12/15/17 00:39 GENERAL/CONSTITUTIONAL: No fever or chills. HEAD, EYES, EARS, NOSE AND THROAT: No change in vision. No ear pain or discharge. No sore throat. GASTROINTESTINAL: No nausea, vomiting, diarrhea or constipation. GENITOURINARY: No dysuria, frequency, or change in urination. CARDIOVASCULAR: No chest pain or shortness of breath. RESPIRATORY: No cough, wheezing, or hemoptysis. MUSCULOSKELETAL: No joint or muscle swelling or pain. No neck or back pain. SKIN: No rash NEUROLOGIC: +AMS. No headache, vertigo, loss of consciousness, or change in strength/sensation. ENDOCRINE: No increased thirst. No abnormal weight change. HEMATOLOGIC/LYMPHATIC: No anemia, easy bleeding, or history of blood clots. ALLERGIC/IMMUNOLOGIC: No hives or skin allergy. <Kat Veliz - Last Filed: 12/15/17 00:37> *Physical Exam - Vital Signs Last Vital Signs Temp Pulse Resp BP Pulse Ox 98.8 F 76 16 114/54 98 12/14/17 23:48 12/14/17 23:48 12/14/17 23:48 12/14/17 23:48 12/14/17 23:48 - Physical Exam Comments: 12/15/17 00:38 Constitutional: AAOx1 Head: Normocephalic. Atraumatic Eyes: PERRL. EOMI. Conjunctivae are not pale. ENT: Mucous membranes are moist and intact. Posterior pharynx without exudates or erythema. Uvula midline. Neck: Supple. Full ROM. No lymphadenopathy. Cardiovascular: Regular rate. Regular rhythm. S1, S2 regular. Distal pulses are 2+ and symmetric. Pulmonary/Chest: No evidence of respiratory distress. Clear to auscultation bilaterally No wheezing, rales or rhonchi. Abdominal: Soft and non-distended. There is no tenderness. No rebound, guarding or rigidity. No organomegaly. No palpable masses. Good bowel sounds. Back: No CVA tenderness. Musculoskeletal: No edema. No cyanosis. No clubbing. Full range of motion in all extremities. Nocalf tenderness. Radial/pedal pulses are intact and 2+ bilaterally Skin: Skin is warm and dry. No petechiae. No purpura. Neurological: Alert and oriented to person, place, and time. Cranial nerves II -XII are grossly intact. Normal speech. See stroke scale. Strength is grossly symmetric. No sensory deficits. Psychiatric: Good eye contact. Normal interaction, affect and behavior. <Kat Veliz - Last Filed: 12/15/17 00:37> - Vital Signs Last Vital Signs Temp Pulse Resp BP Pulse Ox 98.8 F 76 16 114/54 98 12/14/17 23:48 12/14/17 23:48 12/14/17 23:48 12/14/17 23:48 12/14/17 23:48 <Rita Haines - Last Filed: 12/15/17 02:19> Heart Score/ECG Review - ECG Intrepretation Comment:: 12/15/17 00:55 sinus at 74, nl axis, nl interval, t wave ivnersions v2, t wave flattening diffusely, abnl ekg <Rita Haines - Last Filed: 12/15/17 02:19> ED Treatment Course - LABORATORY CBC & Chemistry Diagram: 12/15/17 00:45 12/15/17 00:45 - RADIOLOGY Radiology Studies Ordered: Category Date Time Status HEAD CT WITHOUT CONTRAST [CT] Stat CT Scan 12/14/17 23:52 Ordered CHEST X-RAY PORTABLE* [RAD] Stat Radiology 12/15/17 00:00 Ordered <Rita Haines - Last Filed: 12/15/17 02:19> Medical Decision Making - Medical Decision Making 12/15/17 00:04 a/p: 87yo female with altered ms since 5p today when the daughter called her -was nonverbal for a few hours at the rehab facility - now speaking but confused -knows name and location -doesn't recognize daughter or date -concern for poss infection -recent cva 6 weeks ago -last known normal was around 5p -will obtain stat head ct -will send labs, ekg, ua/ucx, will monitor and reassess 12/15/17 02:[address] negative for acute findings, old microvascular changes ua pending mag slightly low, will replace 12/15/17 02:19 pt pending ua pt signed out to the oncoming ed physician pending ua <Rita Haines - Last Filed: 12/15/17 02:19> *DC/Admit/Observation/Transfer - Attestations Scribe Attestion: 12/15/17 00:40 Documentation prepared by Kat Veliz, acting as medical hospital sales for Rita Haines DO. <Kat Veliz - Last Filed: 12/15/17 00:37> <Rita Haines - Last Filed: 12/15/17 02:19> - Referrals Referrals: Terri Chavez MD [Primary Care Provider] - - Patient Instructions - Post Discharge Activity
[2017-12-15 01:04] LABS: BASO % 0.6 % (0-2.0); HEMOGLOBIN 11.2 GM/dL (10.7-15.3); LYMPH % 30.5 % (8-40); MCH 31.8 pg (25.7-33.7); MCHC 33.8 g/dl (32.0-36.0); MEAN CELL VOLUME 94.2 fl (80-96); MEAN PLT VOLUME 9.9 fl (7.5-11.1); MONO % 9.8 % (3.8-10.2); NEUT % 56.1 % (42.8-82.8); PLATELET COUNT 211 K/MM3 (134-434); RDW 14.7 % (11.6-15.6); WHITE BLOOD COUNT 5.8 K/mm3 (4.0-10.0)
[2017-12-15 01:27] LABS: ALBUMIN 3.5 g/dl (3.4-5.0); ANION GAP 8 (8-16); BILIRUBIN,TOTAL 0.3 mg/dL (0.2-1.0); BLOOD UREA NITROGEN 11 mg/dL (7-18); CALCIUM 9.3 mg/dL (8.5-10.1); CHLORIDE 103 mmol/L (98-107); CO2 28 mmol/L (21-32); GLUCOSE,RANDOM 121 mg/dL (74-106); MAGNESIUM 1.7 mg/dL (1.8-2.4); POTASSIUM 4.3 mmol/L (3.5-5.1); SGOT/AST 23 U/L (15-37); SGPT/ALT 44 U/L (12-78); SODIUM 139 mmol/L (136-145); TOT PROT 7.1 g/dl (6.4-8.2)
[2017-12-15 01:28] LABS: VENOUS PH 7.4 (7.32-7.42)
[2017-12-15 01:29] LABS: VENOUS PC02 43.2 mmHg (38-52); VENOUS PO2 23.9 mmHg (28-48)
[2017-12-15 01:30] LABS: ALK PHOS 54 U/L (45-117)
[2017-12-15] MEDS ORDERED: MAGNESIUM SULF 50% (8.12 MEQ/2 ML-1 GM VIAL) IVPB ONE (01:34)
[2017-12-15 01:38] LABS: INR 1.08 (0.82-1.09); PROTHROMBIN TIME (PATIENT) 12.2 SEC (9.7-13.0)
[2017-12-15 01:40] LABS: ACTIVATED PTT 35.8 SECONDS (25.2-36.5)
[2017-12-15 02:03] LABS: URINE APPEARANCE CLEAR; URINE BILIRUBIN NEGATIVE (<2.0 mg/dL); URINE COLOR YELLOW; URINE GLUCOSE (UA) NEGATIVE (NEGATIVE); URINE KETONE NEGATIVE (NEGATIVE); URINE NITRITE NEGATIVE (NEGATIVE); URINE PROTEIN NEGATIVE (NEGATIVE); URINE UROBILINOGEN NEGATIVE mg/dL (0.2-1.0)
[2017-12-15 02:17] LABS: URINE LEUK ESTERASE 1+ (NEGATIVE)
[2017-12-15] MEDS ORDERED: MAGNESIUM 1GM/D5W - 1 GM/100 ML IVPB IVPB ONE (02:23)
[2017-12-15 02:41] LABS: EPI CELLS RARE /HPF (FEW); URINE BACTERIA RARE /hpf (NONE SEEN); URINE HYALINE CAST 1 /lpf
--- NOTE | 2017-12-15 03:08 | PDOC ---
*Physical Exam - Vital Signs Last Vital Signs Temp Pulse Resp BP Pulse Ox 98.8 F 76 16 114/54 98 12/14/17 23:48 12/14/17 23:48 12/14/17 23:48 12/14/17 23:48 12/14/17 23:48 ED Treatment Course - LABORATORY CBC & Chemistry Diagram: 12/15/17 00:45 12/15/17 00:45 - ADDITIONAL ORDERS Additional order review: Laboratory Results 12/15/17 12/15/17 12/15/17 01:49 00:45 00:45 PT with INR INR PTT (Actin FS) VBG pH POC VBG pCO2 POC VBG pO2 Mixed VBG HCO3 Sodium Potassium Chloride Carbon Dioxide Anion Gap BUN Creatinine Creat Clearance w eGFR Random Glucose Lactic Acid 1.5 Calcium Magnesium Total Bilirubin AST ALT Alkaline Phosphatase Creatine Kinase Troponin I B-Natriuretic Peptide 145.74 Total Protein Albumin Urine Color Yellow Urine Appearance Clear Urine pH 5.0 Ur Specific [place] 1.009 Urine Protein Negative Urine Glucose (UA) Negative Urine Ketones Negative Urine Blood Negative Urine Nitrite Negative Urine Bilirubin Negative Urine Urobilinogen Negative Ur Leukocyte Esterase 1+ H Urine WBC (Auto) 7 Urine RBC (Auto) 1 Ur Epithelial Cells Rare Urine Bacteria Rare Hyaline Casts 1 12/15/17 12/15/17 12/15/17 00:45 00:45 00:45 PT with INR 12.20 INR 1.08 PTT (Actin FS) 35.8 VBG pH 7.40 POC VBG pCO2 43.2 D POC VBG pO2 23.9 L D Mixed VBG HCO3 26.5 H Sodium 139 Potassium 4.3 Chloride 103 Carbon Dioxide 28 Anion Gap 8 BUN 11 Creatinine 1.0 Creat Clearance w eGFR 52.57 Random Glucose 121 H Lactic Acid Calcium 9.3 Magnesium 1.7 L Total Bilirubin 0.3 AST 23 ALT 44 Alkaline Phosphatase 54 D Creatine Kinase 47 Troponin I < 0.02 B-Natriuretic Peptide Total Protein 7.1 Albumin 3.5 Urine Color Urine Appearance Urine pH Ur Specific [place] Urine Protein Urine Glucose (UA) Urine Ketones Urine Blood Urine Nitrite Urine Bilirubin Urine Urobilinogen Ur Leukocyte Esterase Urine WBC (Auto) Urine RBC (Auto) Ur Epithelial Cells Urine Bacteria Hyaline Casts 12/15/17 00:45 RBC 3.50 L MCV 94.2 MCHC 33.8 RDW 14.7 D MPV 9.9 Neutrophils % 56.1 D Lymphocytes % 30.5 D Monocytes % 9.8 Eosinophils % 3.0 D Basophils % 0.6 - Medications Given in the ED: ED Medications Discontinued Medications Generic Name Dose Route Start Last Admin Trade Name Minerva PRN Reason Stop Dose Admin Magnesium Sulfate 1 gm 12/15/17 01:34 12/15/17 02:22 Magnesium Sulfate IVPB 12/15/17 01:35 1 gm ONCE ONE Administration *DC/Admit/Observation/Transfer Diagnosis at time of Disposition: Altered mental state Qualifiers: Altered mental status type: unspecified Qualified Code(s): R41.82 - Altered mental status, unspecified - Discharge Dispostion Condition at time of disposition: Stable Decision to Admit order: Yes - Referrals Referrals: Terri Chavez MD [Primary Care Provider] - - Patient Instructions - Post Discharge Activity
--- NOTE | 2017-12-15 04:38 | HP ---
CHIEF COMPLAINT: altered mental status PCP: [place] HISTORY OF PRESENT ILLNESS: This is an 87 year old female with a past medical history significant for CVA 2017, HTN, DM who presented to the ED with altered mental status. As per the ED note daughter reported pt was less verbal and more confused at [place]. These symptoms were similar to when she had her CVA. Upon exam pt is deep asleep and was awoken for exam. Grunts when asked questions but follows simple questions. ED nurse reports pt was fully verbal earlier and oriented x 2 when she was awake. ER course was notable for: (1) CT head without acute changes (2) U/a c/w with possible mild UTI (3) Mg 1.7, repleted Recent Travel: unk PAST MEDICAL HISTORY: HTN, HLD, CVA 11/14/17, syncope, DM, dementia PAST SURGICAL HISTORY: hip replacement Social History: Smoking: unk Alcohol: unk Drugs: unk Family History: unk Allergies No Known Allergies Allergy (Verified 12/14/17 23:48) HOME MEDICATIONS: 3 Medication Instructions Recorded Aspirin [ASA -] 81 mg PO DAILY 03/15/16 Calcium Carb/Vitamin D3/Vit K1 1 each PO DAILY 03/15/16 [Calcium + D Soft Chewable Tab] Multivitamin [Poly-Vitamin] 1 tab PO DAILY 03/15/16 Solifenacin Succinate [Vesicare -] 10 mg PO DAILY 03/15/16 Vitamin B Complex 1 each PO DAILY 03/15/16 Heparin - 5,000 unit SQ TID vial 11/21/17 Nystatin Oral Suspension - 500,000 units PO Q6HPO cup 11/21/17 [Nystatin Oral Susp 392561 Units/5 ML -] Rosuvastatin [Crestor -] 10 mg PO HS tablet 11/21/17 Sennosides [Senna -] 1 tab PO HS tablet 11/21/17 Sitagliptin Phosphate [Januvia -] 50 mg PO DAILY@0700 tablet 11/21/17 Acetaminophen 325 mg PO QID PRN 12/15/17 Clopidogrel Bisulfate [Plavix] 75 mg PO DAILY 12/15/17 Famotidine [Pepcid] 20 mg PO BID 12/15/17 Lytes/Yerba Nuha [Mouthkote 1 applic MM TID 12/15/17 Solution] Magnesium Hydroxide [Milk of 30 ml PO DAILY PRN 12/15/17 Magnesia] metFORMIN HCL [Glucophage -] 500 mg PO BID 12/15/17 REVIEW OF SYSTEMS CONSTITUTIONAL: Absent: fever, chills, diaphoresis, generalized weakness, malaise, loss of appetite, weight change HEENT: Absent: rhinorrhea, nasal congestion, throat pain, throat swelling, difficulty swallowing, mouth swelling, ear pain, eye pain, visual changes CARDIOVASCULAR: Absent: chest pain, syncope, palpitations, irregular heart rate, lightheadedness , peripheral edema RESPIRATORY: Absent: cough, shortness of breath, dyspnea with exertion, orthopnea, wheezing, stridor, hemoptysis GASTROINTESTINAL: Absent: abdominal pain, abdominal distension, nausea, vomiting, diarrhea, constipation, melena, hematochezia GENITOURINARY: Absent: dysuria, frequency, urgency, hesitancy, hematuria, flank pain, genital pain MUSCULOSKELETAL: Absent: myalgia, arthralgia, joint swelling, back pain, neck pain SKIN: Absent: rash, itching, pallor HEMATOLOGIC/IMMUNOLOGIC: Absent: easy bleeding, easy bruising, lymphadenopathy, frequent infections ENDOCRINE: Absent: unexplained weight gain, unexplained weight loss, heat intolerance, cold intolerance NEUROLOGIC: Present: mental status changes Absent: headache, focal weakness or paresthesias, dizziness, unsteady gait, seizure, bladder or bowel incontinence PSYCHIATRIC: Absent: anxiety, depression, suicidal or homicidal ideation, hallucinations. PHYSICAL EXAMINATION Vital Signs - 24 hr 3 12/14/17 12/15/17 23:48 04:10 Temperature 98.8 F 98.1 F Pulse Rate 76 Pulse Rate [ 76 Apical] Respiratory 16 17 Rate Blood Pressure 114/54 Blood Pressure 170/72 [Right Arm] O2 Sat by Pulse 98 99 Oximetry (%) GENERAL: Sleeping but arousable, does not answer direct questions but follows simple commands, in no acute distress. HEAD: Normal with no signs of trauma. EYES: Pupils equal, round and reactive to light, extraocular movements intact, sclera anicteric, conjunctiva clear. No lid lag. EARS, NOSE, THROAT: Ears normal, nares patent, Pt refused to open mouth fully, mucous membranes appear moist NECK: Normal range of motion, supple without lymphadenopathy, JVD, or masses. LUNGS: Breath sounds equal, clear to auscultation bilaterally. No wheezes, and no crackles. No accessory muscle use. HEART: Regular rate and rhythm, normal S1 and S2 without murmur, rub or gallop. ABDOMEN: Soft, nontender, not distended, normoactive bowel sounds, no guarding, no rebound, no masses. No hepatomegaly or splenomegaly. MUSCULOSKELETAL: Normal range of motion at all joints. No bony deformities or tenderness. No CVA tenderness. UPPER EXTREMITIES: 2+ pulses, warm, well-perfused. No cyanosis. No clubbing. No peripheral edema. LOWER EXTREMITIES: 2+ pulses, warm, well-perfused. No calf tenderness. No peripheral edema. NEUROLOGICAL: Cranial nerves II-XII intact. PSYCHIATRIC: Cooperative. Good eye contact. Appropriate mood and affect. SKIN: Warm, dry, normal turgor, no rashes or lesions noted, normal capillary refill. Laboratory Results - last 24 hr 3 12/15/17 12/15/17 12/15/17 00:45 00:45 00:45 WBC RBC Hgb Hct MCV MCH MCHC RDW Plt Count MPV Absolute Neuts (auto) Neutrophils % Lymphocytes % Monocytes % Eosinophils % Basophils % Nucleated RBC % PT with INR 12.20 INR 1.08 PTT (Actin FS) 35.8 VBG pH 7.40 POC VBG pCO2 43.2 D POC VBG pO2 23.9 L D Mixed VBG HCO3 26.5 H Sodium 139 Potassium 4.3 Chloride 103 Carbon Dioxide 28 Anion Gap 8 BUN 11 Creatinine 1.0 Creat Clearance w eGFR 52.57 Random Glucose 121 H Lactic Acid Calcium 9.3 Magnesium 1.7 L Total Bilirubin 0.3 AST 23 ALT 44 Alkaline Phosphatase 54 D Creatine Kinase 47 Troponin I < 0.02 B-Natriuretic Peptide Total Protein 7.1 Albumin 3.5 Urine Color Urine Appearance Urine pH Ur Specific [place] Urine Protein Urine Glucose (UA) Urine Ketones Urine Blood Urine Nitrite Urine Bilirubin Urine Urobilinogen Ur Leukocyte Esterase Urine WBC (Auto) Urine RBC (Auto) Ur Epithelial Cells Urine Bacteria Hyaline Casts 3 12/15/17 12/15/17 12/15/17 00:45 00:45 00:45 WBC 5.8 RBC 3.50 L Hgb 11.2 Hct 33.0 D MCV 94.2 MCH 31.8 MCHC 33.8 RDW 14.7 D Plt Count 211 MPV 9.9 Absolute Neuts (auto) 3.3 Neutrophils % 56.1 D Lymphocytes % 30.5 D Monocytes % 9.8 Eosinophils % 3.0 D Basophils % 0.6 Nucleated RBC % 0 PT with INR INR PTT (Actin FS) VBG pH POC VBG pCO2 POC VBG pO2 Mixed VBG HCO3 Sodium Potassium Chloride Carbon Dioxide Anion Gap BUN Creatinine Creat Clearance w eGFR Random Glucose Lactic Acid 1.5 Calcium Magnesium Total Bilirubin AST ALT Alkaline Phosphatase Creatine Kinase Troponin I B-Natriuretic Peptide 145.74 Total Protein Albumin Urine Color Urine Appearance Urine pH Ur Specific [place] Urine Protein Urine Glucose (UA) Urine Ketones Urine Blood Urine Nitrite Urine Bilirubin Urine Urobilinogen Ur Leukocyte Esterase Urine WBC (Auto) Urine RBC (Auto) Ur Epithelial Cells Urine Bacteria Hyaline Casts 3 Urine Color Yellow 12/15/17 01:49 Urine Appearance Clear 12/15/17 01:49 Urine pH 5.0 (5.0-8.0) 12/15/17 01:49 Ur Specific [place] 1.009 (1.001-1.035) 12/15/17 01:49 Urine Protein Negative (NEGATIVE) 12/15/17 01:49 Urine Glucose (UA) Negative (NEGATIVE) 12/15/17 01:49 Urine Ketones Negative (NEGATIVE) 12/15/17 01:49 Urine Blood Negative (NEGATIVE) 12/15/17 01:49 Urine Nitrite Negative (NEGATIVE) 12/15/17 01:49 Urine Bilirubin Negative (<2.0 mg/dL) 12/15/17 01:49 Ur Leukocyte Esterase 1+ (NEGATIVE) H 12/15/17 01:49 Urine WBC (Auto) 7 12/15/17 01:49 Urine RBC (Auto) 1 12/15/17 01:49 Ur Epithelial Cells Rare /HPF (FEW) 12/15/17 01:49 Urine Bacteria Rare /hpf (NONE SEEN) 12/15/17 01:49 Hyaline Casts 1 ECG Normal sinus rhythm vent rate 74, QTC [address]/T changes Radiology Reports CT head without IV contrast. THIS IS A PRELIMINARY REPORT FROM IMAGING ACCOUNTANT ASSISTANT Findings: The visualized bony structures are unremarkable. The visualized paranasal sinuses and mastoid air cells are clear There is no evidence of intra-or extra-axial hemorrhage. The ventricles and basilar cisterns are unremarkable. There is mild periventricular hypodensities consistent with mild chronic small vessel ischemic changes. There is some incidental left basal ganglia calcifications. There is no evidence of intracranial mass, acute infarct, or midline shift. Impression: 1. Mild chronic small vessel ischemic changes. 2. Otherwise, negative unenhanced CT of the brain. THIS DOCUMENT HAS BEEN ELECTRONICALLY SIGNED Sean Bautista MD 12/15/2017 00:16 EST ASSESSMENT/PLAN: 87yF with PMH HTN, HLD, CVA 11/14/17, syncope, DM, dementia who presented to the ED from [place] for altered mental status. Altered mental status - no acute findings on CT - doubtful new CVA as pt was back to baseline in ED earlier in the evening - neurology consult - admit to med/surg for further observation. UTI - 7 WBC and 1+ leuk esterase - will treat for now, follow cultures - ceftriaxone 1g daily hypomagnesia - repleted, repeat in am HTN, HLD - cont home meds recent CVA - cont home ASA/Plavix DM - hold metformin, cont januvia - BGM with novolog SS DVT PPX - heparin 5000u SC TID FEN - po fluids - bmp in am with mag - low sodium, diabetic diet mechanical soft Dispo: pt currently requires further observation. Visit type - Emergency Visit Emergency Visit: Yes ED Registration Date: 12/15/17 Care time: The patient presented to the Emergency Department on the above date and was hospitalized for further evaluation of their emergent condition. - New Patient This patient is new to me today: Yes Date on this admission: 12/15/17 - Critical Care Critical Care patient: No Hospitalist Screening - Colonoscopy Questionnaire Colonoscopy Questionnaire: Colonoscopy Questionnaire - Patient: 50 - 75 years old and never had a screening colonoscopy: No History of colon or rectal polyps, or CA: No History of IBD, Crohn's disease or UC: No History of abdominal radiation therapy as a child: No - Relative: 1 with colon or rectal CA, or polyps at age 60 or younger: Unknown Colon or rectal CA diagnosed at age 45 or younger: Unknown Multiple relatives with colon or rectal CA: Unknown - Outcome: Screening Result: Negative Screen
[2017-12-15] MEDS ORDERED: MAGNESIUM HYDROX 2400MG/30ML ORAL SUSPENSION 30 ML CUP PO PRN (04:53)
[2017-12-15 05:15] VITALS: BMI 23.8
[2017-12-15] MEDS ORDERED: cefTRIAXone SODIUM 1 GM VIAL ONE ×2 (05:40→09:37)
[2017-12-15] MEDS ORDERED: DEXTROSE 5%-WATER 100 ML IVPB ONE ×2 (05:40→09:37)
[2017-12-15] MEDS: CEFTRIAXONE 1 GM in DEXTROSE 5%-WATER 100 ML IVPB SCH ×2 (05:50→09:47)
[2017-12-15] MEDS: NYSTATIN 500,000 UNITS/5 ML SUSPENSION PO SCH ×4 (05:51→23:05)
[2017-12-15] MEDS: HEPARIN NA (PORCINE) 5,000 UNITS/ML 1ML VIAL SQ SCH ×3 (05:51→22:35)
[2017-12-15] MEDS: LYTES/YERBA SANTA 240 ML BOTTLE MM SCH ×3 (06:03→22:35)
[2017-12-15] MEDS: sitaGLIPtin PHOSPHATE 50 MG TABLET PO SCH (06:44)
[2017-12-15] MEDS: INSULIN SLIDING SCALE (NOVOLOG) 1 VIAL SQ SCH ×4 (06:44→22:35)
[2017-12-15 08:45] LABS: WHITE BLOOD COUNT 4.5 K/mm3 (4.0-10.0)
[2017-12-15 08:51] LABS: BASO % 0.8 % (0-2.0); EOS % 3.7 % (0-4.5); HEMATOCRIT 30.9 % (32.4-45.2); HEMOGLOBIN 10.7 GM/dL (10.7-15.3); LYMPH % 31.2 % (8-40); MCH 32.7 pg (25.7-33.7); MCHC 34.5 g/dl (32.0-36.0); MEAN CELL VOLUME 94.6 fl (80-96); MEAN PLT VOLUME 10.3 fl (7.5-11.1); MONO % 11.1 % (3.8-10.2); NEUT % 53.2 % (42.8-82.8); PLATELET COUNT 184 K/MM3 (134-434); RBC 3.26 M/mm3 (3.60-5.2); RDW 14.3 % (11.6-15.6)
--- NOTE | 2017-12-15 08:56 | CONSULT ---
Consult - text type - Consultation Consultation Note: Neurology CHIEF COMPLAINT: altered mental status HISTORY OF PRESENT ILLNESS: 87 year old female with a past medical history significant for CVA 10/2017, HTN, DM who presented to the ED with altered mental status. As per the ED note daughter reported pt was less verbal and more confused at [place]. These symptoms were similar to when she had her CVA. She was not cooperative for evaluation, opens eyes briefly but somnolent. Grunts when asked questions but follows simple questions. CT head completed and without acute changes. OF note, UA with possible UTI. I ordered MRI brain to rule out CVA though does not appear to have focal deficits. Recent Travel: unk PAST MEDICAL HISTORY: HTN, HLD, CVA 11/14/17, syncope, DM, dementia PAST SURGICAL HISTORY: hip replacement Social History: Smoking: unk Alcohol: unk Drugs: unk Family History: unk Allergies No Known Allergies Allergy (Verified 12/14/17 23:48) HOME MEDICATIONS: 3 Medication Instructions Recorded Aspirin [ASA -] 81 mg PO DAILY 03/15/16 Calcium Carb/Vitamin D3/Vit K1 1 each PO DAILY 03/15/16 [Calcium + D Soft Chewable Tab] Multivitamin [Poly-Vitamin] 1 tab PO DAILY 03/15/16 Solifenacin Succinate [Vesicare -] 10 mg PO DAILY 03/15/16 Vitamin B Complex 1 each PO DAILY 03/15/16 Heparin - 5,000 unit SQ TID vial 11/21/17 Nystatin Oral Suspension - 500,000 units PO Q6HPO cup 11/21/17 [Nystatin Oral Susp 284958 Units/5 ML -] Rosuvastatin [Crestor -] 10 mg PO HS tablet 11/21/17 Sennosides [Senna -] 1 tab PO HS tablet 11/21/17 Sitagliptin Phosphate [Januvia -] 50 mg PO DAILY@0700 tablet 11/21/17 Acetaminophen 325 mg PO QID PRN 12/15/17 Clopidogrel Bisulfate [Plavix] 75 mg PO DAILY 12/15/17 Famotidine [Pepcid] 20 mg PO BID 12/15/17 Lytes/Yerba Nuha [Mouthkote 1 applic MM TID 12/15/17 Solution] Magnesium Hydroxide [Milk of 30 ml PO DAILY PRN 12/15/17 Magnesia] metFORMIN HCL [Glucophage -] 500 mg PO BID 12/15/17 REVIEW OF SYSTEMS CONSTITUTIONAL: Absent: fever, chills, diaphoresis, generalized weakness, malaise, loss of appetite, weight change HEENT: Absent: rhinorrhea, nasal congestion, throat pain, throat swelling, difficulty swallowing, mouth swelling, ear pain, eye pain, visual changes CARDIOVASCULAR: Absent: chest pain, syncope, palpitations, irregular heart rate, lightheadedness , peripheral edema RESPIRATORY: Absent: cough, shortness of breath, dyspnea with exertion, orthopnea, wheezing, stridor, hemoptysis GASTROINTESTINAL: Absent: abdominal pain, abdominal distension, nausea, vomiting, diarrhea, constipation, melena, hematochezia GENITOURINARY: Absent: dysuria, frequency, urgency, hesitancy, hematuria, flank pain, genital pain MUSCULOSKELETAL: Absent: myalgia, arthralgia, joint swelling, back pain, neck pain SKIN: Absent: rash, itching, pallor HEMATOLOGIC/IMMUNOLOGIC: Absent: easy bleeding, easy bruising, lymphadenopathy, frequent infections ENDOCRINE: Absent: unexplained weight gain, unexplained weight loss, heat intolerance, cold intolerance NEUROLOGIC: Present: mental status changes Absent: headache, focal weakness or paresthesias, dizziness, unsteady gait, seizure, bladder or bowel incontinence PSYCHIATRIC: Absent: anxiety, depression, suicidal or homicidal ideation, hallucinations. Vital Signs Period Temp Pulse Resp BP Sys/Mcgraw Pulse Ox Last 24 Hr 97.9 F-98.8 F 76-86 16-18 114-170/54-84 98-99 GENERAL: Sleeping but arousable, does not answer direct questions but follows simple commands, in no acute distress. HEAD: Normal with no signs of trauma. EYES: Pupils equal, round and reactive to light, extraocular movements intact, sclera anicteric, conjunctiva clear. No lid lag. EARS, NOSE, THROAT: Ears normal, nares patent, Pt refused to open mouth fully, mucous membranes appear moist NECK: Normal range of motion, supple without lymphadenopathy, JVD, or masses. LUNGS: Breath sounds equal, clear to auscultation bilaterally. No wheezes, and no crackles. No accessory muscle use. HEART: Regular rate and rhythm, normal S1 and S2 without murmur, rub or gallop. ABDOMEN: Soft, nontender, not distended, normoactive bowel sounds, no guarding, no rebound, no masses. No hepatomegaly or splenomegaly. MUSCULOSKELETAL: Normal range of motion at all joints. No bony deformities or tenderness. No CVA tenderness. UPPER EXTREMITIES: 2+ pulses, warm, well-perfused. No cyanosis. No clubbing. No peripheral edema. LOWER EXTREMITIES: 2+ pulses, warm, well-perfused. No calf tenderness. No peripheral edema. NEUROLOGICAL: Cranial nerves II-XII intact, moves extremities grossly, sensory intact to tactile stim PSYCHIATRIC: Cooperative. Good eye contact. Appropriate mood and affect. SKIN: Warm, dry, normal turgor, no rashes or lesions noted, normal capillary refill. Laboratory Results - last 24 hr 3 12/15/17 12/15/17 12/15/17 00:45 00:45 00:45 WBC RBC Hgb Hct MCV MCH MCHC RDW Plt Count MPV Absolute Neuts (auto) Neutrophils % Lymphocytes % Monocytes % Eosinophils % Basophils % Nucleated RBC % PT with INR 12.20 INR 1.08 PTT (Actin FS) 35.8 VBG pH 7.40 POC VBG pCO2 43.2 D POC VBG pO2 23.9 L D Mixed VBG HCO3 26.5 H Sodium 139 Potassium 4.3 Chloride 103 Carbon Dioxide 28 Anion Gap 8 BUN 11 Creatinine 1.0 Creat Clearance w eGFR 52.57 Random Glucose 121 H Lactic Acid Calcium 9.3 Magnesium 1.7 L Total Bilirubin 0.3 AST 23 ALT 44 Alkaline Phosphatase 54 D Creatine Kinase 47 Troponin I < 0.02 B-Natriuretic Peptide Total Protein 7.1 Albumin 3.5 Urine Color Urine Appearance Urine pH Ur Specific [place] Urine Protein Urine Glucose (UA) Urine Ketones Urine Blood Urine Nitrite Urine Bilirubin Urine Urobilinogen Ur Leukocyte Esterase Urine WBC (Auto) Urine RBC (Auto) Ur Epithelial Cells Urine Bacteria Hyaline Casts 3 12/15/17 12/15/17 12/15/17 00:45 00:45 00:45 WBC 5.8 RBC 3.50 L Hgb 11.2 Hct 33.0 D MCV 94.2 MCH 31.8 MCHC 33.8 RDW 14.7 D Plt Count 211 MPV 9.9 Absolute Neuts (auto) 3.3 Neutrophils % 56.1 D Lymphocytes % 30.5 D Monocytes % 9.8 Eosinophils % 3.0 D Basophils % 0.6 Nucleated RBC % 0 PT with INR INR PTT (Actin FS) VBG pH POC VBG pCO2 POC VBG pO2 Mixed VBG HCO3 Sodium Potassium Chloride Carbon Dioxide Anion Gap BUN Creatinine Creat Clearance w eGFR Random Glucose Lactic Acid 1.5 Calcium Magnesium Total Bilirubin AST ALT Alkaline Phosphatase Creatine Kinase Troponin I B-Natriuretic Peptide 145.74 Total Protein Albumin Urine Color Urine Appearance Urine pH Ur Specific [place] Urine Protein Urine Glucose (UA) Urine Ketones Urine Blood Urine Nitrite Urine Bilirubin Urine Urobilinogen Ur Leukocyte Esterase Urine WBC (Auto) Urine RBC (Auto) Ur Epithelial Cells Urine Bacteria Hyaline Casts 3 Urine Color Yellow 12/15/17 01:49 Urine Appearance Clear 12/15/17 01:49 Urine pH 5.0 (5.0-8.0) 12/15/17 01:49 Ur Specific [place] 1.009 (1.001-1.035) 12/15/17 01:49 Urine Protein Negative (NEGATIVE) 12/15/17 01:49 Urine Glucose (UA) Negative (NEGATIVE) 12/15/17 01:49 Urine Ketones Negative (NEGATIVE) 12/15/17 01:49 Urine Blood Negative (NEGATIVE) 12/15/17 01:49 Urine Nitrite Negative (NEGATIVE) 12/15/17 01:49 Urine Bilirubin Negative (<2.0 mg/dL) 12/15/17 01:49 Ur Leukocyte Esterase 1+ (NEGATIVE) H 12/15/17 01:49 Urine WBC (Auto) 7 12/15/17 01:49 Urine RBC (Auto) 1 12/15/17 01:49 Ur Epithelial Cells Rare /HPF (FEW) 12/15/17 01:49 Urine Bacteria Rare /hpf (NONE SEEN) 12/15/17 01:49 Hyaline Casts [address] head without IV contrast. Impression: 1. Mild chronic small vessel ischemic changes. 2. Otherwise, negative unenhanced CT of the brain. ASSESSMENT/PLAN: 87 year old female with a past medical history significant for CVA 10/2017, HTN, DM who presented to the ED with altered mental status. As per the ED note daughter reported pt was less verbal and more confused at [place]. These symptoms were similar to when she had her CVA. She was not cooperative for evaluation, opens eyes briefly but somnolent. Grunts when asked questions but follows simple questions. CT head completed and without acute changes. OF note, UA with possible UTI. I ordered MRI brain to rule out CVA though does not appear to have focal deficits. More likely toxic/metabolic encephalopathy with underlying infection. IV abx as per primary team. Low Mag repleted. Maintain hydration and adequate PO intake. Monitor BP, maintain normotensive range. Cont antiplatelet regiment. Monitor glucose, maintain euglycemic range. DVT ppx.
[2017-12-15 09:02] LABS: ANION GAP 9 (8-16); BLOOD UREA NITROGEN 9 mg/dL (7-18); CALCIUM 9.1 mg/dL (8.5-10.1); CHLORIDE 103 mmol/L (98-107); CO2 26 mmol/L (21-32); CREATININE 0.9 mg/dL (0.55-1.02); GLUCOSE,RANDOM 130 mg/dL (74-106); PHOSPHOROUS 4.1 mg/dL (2.5-4.9); POTASSIUM 4.4 mmol/L (3.5-5.1); SODIUM 138 mmol/L (136-145)
[2017-12-15] MEDS: SOLIFENACIN SUCCINATE 5 MG TAB (FP) PO SCH (09:47)
[2017-12-15] MEDS: ASPIRIN 81 MG CHEWABLE TABLETS PO SCH (09:47)
[2017-12-15] MEDS: VITAMIN B COMP W-C 1 EA TABLET PO SCH (09:47)
[2017-12-15] MEDS: MULTIVITAMINS (DAILY MVI) TABLET (FP) PO SCH (09:47)
[2017-12-15] MEDS: RANITIDINE HCL 150 MG TABLET (FP) PO SCH ×2 (09:47→22:36)
[2017-12-15] MEDS: CLOPIDOGREL BISULFATE 75 MG TABLET (FP) PO SCH (09:48)
[2017-12-15] MEDS ORDERED: PATIENT'S OWN MEDICATION (NON-FORMULARY) (Cal/D3/Mag11/Zinc/Cop/Mang/Bor [Caltrate 600+D P PO SCH (10:00)
--- NOTE | 2017-12-15 11:29 | PN ---
Progress Note, Physician Chief Complaint: shari in bed with eyes closed but on calling her name she opened her eyes and responded to me - Current Medication List Current Medications: Active Medications Aspirin (Asa -) 81 mg PO DAILY [facility] Last Admin: 12/15/17 09:47 Dose: 81 mg Clopidogrel Bisulfate (Plavix -) 75 mg PO DAILY [facility] Last Admin: 12/15/17 09:48 Dose: 75 mg Docusate Sodium (Colace -) 300 mg PO HS [facility] Heparin Sodium (Porcine) (Heparin -) 5,000 unit SQ TID [facility] Last Admin: 12/15/17 05:51 Dose: 5,000 unit Ceftriaxone Sodium 1 gm/ (Dextrose) 100 mls @ 200 mls/hr IVPB DAILY [facility]; Protocol Last Admin: 12/15/17 09:47 Dose: 200 mls/hr Insulin Aspart (Novolog Vial Sliding Scale -) 1 vial SQ ACHS [facility]; Protocol Last Admin: 12/15/17 06:44 Dose: Not Given Magnesium Hydroxide (Milk Of Magnesia -) 30 ml PO DAILY PRN PRN Reason: CONSTIPATION Multivit/Ca Carb/B Cmplx/FA/Prenat (Nephro-Boby -) 1 tablet PO DAILY [facility] Last Admin: 12/15/17 09:47 Dose: 1 tablet Multivitamins/Minerals/Vitamin C (Tab-A-Vit -) 1 tab PO DAILY [facility] Last Admin: 12/15/17 09:47 Dose: 1 tab Non-Formulary Medication (Brad/D3/Mag11/Zinc/Commercial Installer/Gurdeep/Bor [Caltrate 600+D Plus Tablet]) 1 each PO BID [facility] Nystatin (Nystatin Oral Suspension -) 500,000 units PO Q6HPO [facility] Last Admin: 12/15/17 05:51 Dose: 500,000 units Ranitidine HCl (Zantac -) 150 mg PO BID [facility] Last Admin: 12/15/17 09:47 Dose: 150 mg Rosuvastatin Calcium (Crestor -) 10 mg PO HS [facility] Saliva Substitute (Mouthkote Solution -) 1 applic MM TID [facility] Last Admin: 12/15/17 06:03 Dose: 1 applic Senna (Senna -) 1 tab PO HS [facility] Sitagliptin Phosphate (Januvia -) 50 mg PO DAILY@0700 [facility] Last Admin: 12/15/17 06:44 Dose: 50 mg Solifenacin (Vesicare -) 10 mg PO DAILY [facility] Last Admin: 12/15/17 09:47 Dose: 10 mg - Objective Vital Signs: Vital Signs Temperature 97.7 F 12/15/17 09:00 Pulse Rate 60 12/15/17 09:00 Respiratory Rate 18 12/15/17 09:00 Blood Pressure 119/64 12/15/17 09:00 O2 Sat by Pulse Oximetry (%) 99 12/15/17 04:10 Constitutional: Yes: Calm Cardiovascular: Yes: Regular Rate and Rhythm, S1, S2 Respiratory: Yes: CTA Bilaterally Gastrointestinal: Yes: Normal Bowel Sounds, Soft Edema: No Neurological: Yes: Alert Labs: CBC, BMP 12/15/17 08:00 12/15/17 08:00 INR, PTT INR 1.08 (0.82-1.09) 12/15/17 00:45 Problem List - Problems (1) Altered mental status Assessment/Plan: CT head negative probably toxic metabolic encephalopathy related to UTI on iv abx- rocephin awaiting urine culture MRI ordered-pending neurology on board dvt ppx h/o of cva in past on aspirin and statin check lipid profile Code(s): R41.82 - ALTERED MENTAL STATUS, UNSPECIFIED Qualifiers: Altered mental status type: unspecified Qualified Code(s): R41.82 - Altered mental status, unspecified (2) Diabetes mellitus Assessment/Plan: sliding scale [id number] januvia hold metformin given patient got contrast Code(s): E11.9 - TYPE 2 DIABETES MELLITUS WITHOUT COMPLICATIONS Qualifiers: Diabetes mellitus type: type 2 Diabetes mellitus terminal computer operator insulin use: without terminal computer operator use Diabetes mellitus complication status: without complication Qualified Code(s): E11.9 - Type 2 diabetes mellitus without complications
[2017-12-15] MEDS ORDERED: INSULIN (NOVOLOG) ASPART 100 UNITS/ML 10ML VIAL ONE (11:52)
--- NOTE | 2017-12-15 12:10 | EKG ---
Test Reason : Blood Pressure : / mmHG Vent. Rate : 074 BPM Atrial Rate : 074 BPM P-R Int : 172 ms QRS Dur : 068 ms QT Int : 390 ms P-R-T Axes : 057 002 040 degrees QTc Int : 432 ms POOR DATA QUALITY, INTERPRETATION MAY BE ADVERSELY AFFECTED NORMAL SINUS RHYTHM NORMAL ECG WHEN COMPARED WITH ECG OF 14-NOV-2017 13:49, NO SIGNIFICANT CHANGE WAS FOUND Confirmed by IVAN DONOHUE, DINAH ([id number]) on 12/15/2017 12:10:17 PM Referred By: Confirmed By:DINAH LOVE MD
[2017-12-15] MEDS: DOCUSATE SODIUM 100 MG CAPSULE (FP) PO SCH (22:35)
[2017-12-15] MEDS: ROSUVASTATIN CA 10 MG TABLET (FP) PO SCH (22:35)
[2017-12-15] MEDS: SENNOSIDES 8.6MG TABLET (FP) PO SCH (22:36)
[2017-12-16] MEDS: HEPARIN NA (PORCINE) 5,000 UNITS/ML 1ML VIAL SQ SCH ×3 (06:04→22:24)
[2017-12-16] MEDS: LYTES/YERBA SANTA 240 ML BOTTLE MM SCH ×3 (06:05→22:24)
[2017-12-16] MEDS: sitaGLIPtin PHOSPHATE 50 MG TABLET PO SCH (06:05)
[2017-12-16] MEDS: INSULIN SLIDING SCALE (NOVOLOG) 1 VIAL SQ SCH ×4 (06:05→22:22)
[2017-12-16] MEDS: NYSTATIN 500,000 UNITS/5 ML SUSPENSION PO SCH ×4 (06:05→23:10)
[2017-12-16 09:11] LABS: BASO % 0.5 % (0-2.0); EOS % 3.9 % (0-4.5); HEMATOCRIT 32.2 % (32.4-45.2); HEMOGLOBIN 10.9 GM/dL (10.7-15.3); MCH 31.9 pg (25.7-33.7); MCHC 33.9 g/dl (32.0-36.0); MEAN CELL VOLUME 93.9 fl (80-96); MEAN PLT VOLUME 9.9 fl (7.5-11.1); MONO % 10.9 % (3.8-10.2); NEUT % 60.7 % (42.8-82.8); PLATELET COUNT 202 K/MM3 (134-434); RBC 3.43 M/mm3 (3.60-5.2); RDW 14.5 % (11.6-15.6); WHITE BLOOD COUNT 4.7 K/mm3 (4.0-10.0)
[2017-12-16] MEDS ORDERED: DEXTROSE 5%-WATER 100 ML IVPB ONE (09:18)
[2017-12-16] MEDS ORDERED: cefTRIAXone SODIUM 1 GM VIAL ONE (09:18)
[2017-12-16] MEDS: ASPIRIN 81 MG CHEWABLE TABLETS PO SCH (09:26)
[2017-12-16] MEDS: VITAMIN B COMP W-C 1 EA TABLET PO SCH (09:26)
[2017-12-16] MEDS: MULTIVITAMINS (DAILY MVI) TABLET (FP) PO SCH (09:27)
[2017-12-16] MEDS: RANITIDINE HCL 150 MG TABLET (FP) PO SCH ×2 (09:27→22:23)
[2017-12-16] MEDS: CLOPIDOGREL BISULFATE 75 MG TABLET (FP) PO SCH (09:27)
[2017-12-16] MEDS: SOLIFENACIN SUCCINATE 5 MG TAB (FP) PO SCH (09:27)
[2017-12-16 09:57] LABS: ALBUMIN 3.6 g/dl (3.4-5.0); ANION GAP 9 (8-16); BILIRUBIN,TOTAL 0.4 mg/dL (0.2-1.0); BLOOD UREA NITROGEN 8 mg/dL (7-18); CALCIUM 9.4 mg/dL (8.5-10.1); CHLORIDE 106 mmol/L (98-107); CHOLESTEROL 139 mg/dL (50-200); CO2 26 mmol/L (21-32); CREATININE 0.9 mg/dL (0.55-1.02); GLUCOSE,RANDOM 130 mg/dL (74-106); POTASSIUM 4.8 mmol/L (3.5-5.1); SGOT/AST 23 U/L (15-37); SGPT/ALT 41 U/L (12-78); SODIUM 141 mmol/L (136-145); TOT PROT 7.3 g/dl (6.4-8.2)
[2017-12-16 09:59] LABS: HDL CHOLESTEROL 63 mg/dL (40-60); TRIGLYCERIDES 116 mg/dL (35-160)
[2017-12-16 10:01] LABS: ALK PHOS 53 U/L (45-117)
[2017-12-16] MEDS ORDERED: INSULIN (NOVOLOG) ASPART 100 UNITS/ML 10ML VIAL ONE (10:59)
[2017-12-16] MEDS: CEFTRIAXONE 1 GM in DEXTROSE 5%-WATER 100 ML IVPB SCH (11:20)
--- NOTE | 2017-12-16 12:35 | PN ---
Progress Note, Physician - Current Medication List Current Medications: Active Medications Aspirin (Asa -) 81 mg PO DAILY [facility] Last Admin: 12/16/17 09:26 Dose: 81 mg Clopidogrel Bisulfate (Plavix -) 75 mg PO DAILY [facility] Last Admin: 12/16/17 09:27 Dose: 75 mg Docusate Sodium (Colace -) 300 mg PO HS [facility] Last Admin: 12/15/17 22:35 Dose: Not Given Heparin Sodium (Porcine) (Heparin -) 5,000 unit SQ TID [facility] Last Admin: 12/16/17 06:04 Dose: Not Given Insulin Aspart (Novolog Vial Sliding Scale -) 1 vial SQ ACHS [facility]; Protocol Last Admin: 12/16/17 11:13 Dose: Not Given Magnesium Hydroxide (Milk Of Magnesia -) 30 ml PO DAILY PRN PRN Reason: CONSTIPATION Last Admin: 12/16/17 11:00 Dose: 30 ml Multivit/Ca Carb/B Cmplx/FA/Prenat (Nephro-Boby -) 1 tablet PO DAILY [facility] Last Admin: 12/16/17 09:26 Dose: 1 tablet Multivitamins/Minerals/Vitamin C (Tab-A-Vit -) 1 tab PO DAILY [facility] Last Admin: 12/16/17 09:27 Dose: 1 tab Nystatin (Nystatin Oral Suspension -) 500,000 units PO Q6HPO [facility] Last Admin: 12/16/17 11:01 Dose: 500,000 units Ranitidine HCl (Zantac -) 150 mg PO BID [facility] Last Admin: 12/16/17 09:27 Dose: 150 mg Rosuvastatin Calcium (Crestor -) 10 mg PO [facility] Last Admin: 12/15/17 22:35 Dose: Not Given Saliva Substitute (Mouthkote Solution -) 1 applic MM TID [facility] Last Admin: 12/16/17 06:05 Dose: Not Given Senna (Senna -) 1 tab PO [facility] Last Admin: 12/15/17 22:36 Dose: Not Given Sitagliptin Phosphate (Januvia -) 50 mg PO DAILY@0700 [facility] Last Admin: 12/16/17 06:05 Dose: Not Given Solifenacin (Vesicare -) 10 mg PO DAILY [facility] Last Admin: 12/16/17 09:27 Dose: 10 mg - Objective Vital Signs: Vital Signs Temperature 97.6 F 12/16/17 11:00 Pulse Rate 80 12/16/17 11:00 Respiratory Rate 18 12/16/17 11:00 Blood Pressure 110/77 12/16/17 11:00 O2 Sat by Pulse Oximetry (%) 98 12/16/17 04:00 Cardiovascular: Yes: S1, S2 Respiratory: Yes: Regular, CTA Bilaterally Neurological: Yes: Confusion, Weakness Labs: CBC, BMP 12/16/17 08:20 12/16/17 08:20 INR, PTT INR 1.08 (0.82-1.09) 12/15/17 00:45 Problem List - Problems (1) Altered mental status Assessment/Plan: CT head negative probably toxic metabolic encephalopathy related to UTI dc iv abx- rocephin urine culture neg MRI ordered-pending neurology on board dvt ppx h/o of cva in past on aspirin and statin check lipid profile MRI-C/W acute cva Code(s): R41.82 - ALTERED MENTAL STATUS, UNSPECIFIED Qualifiers: Altered mental status type: unspecified Qualified Code(s): R41.82 - Altered mental status, unspecified (2) Acute ischemic stroke Assessment/Plan: --MRI noted--acute stroke -neuro follow up Code(s): I63.9 - CEREBRAL INFARCTION, UNSPECIFIED (3) Diabetes mellitus Assessment/Plan: sliding scale hgba1c januvia hold metformin given patient got contrast Code(s): E11.9 - TYPE 2 DIABETES MELLITUS WITHOUT COMPLICATIONS Qualifiers: Diabetes mellitus type: type 2 Diabetes mellitus intermediate insulin use: without intermediate use Diabetes mellitus complication status: without complication Qualified Code(s): E11.9 - Type 2 diabetes mellitus without complications
--- NOTE | 2017-12-16 19:07 | PN ---
Progress Note (short form) - Note Progress Note: NEUROLOGY FOLLOW-UP: Asked by RN to address MRI findings and to discuss with her daughter. In coverage for Dr. Hampton. Discussed with RN and her daughter, Margaret, who relates a 2 year history of gradual cognitive decline and notes they were scheduled to see me, as an out patient, for her memory complaints, before she had her stroke. MRI (s) reviewed. Patient examined. This 87 yo woman with h/o HTN, Chol was admitted in October with change in speech and was found to have a distal left MCA-territory stroke. The MRI from October also showed fairly advanced atrophy and severe, diffuse, periventricular microvascular changes with multiple, chronic lacunes. Admitted yesterday with worsening speech but Dr. Hampton described her as being lethargic and suspected UTI. Today she is much brighter and alert. Repeat MRI reviewed. No significant changes since October. Atrophy. Left posterior/ temporal CVA. Diffuse periventricular microvascular changes and scattered, very chronic lacunar infarcts. EXAM: Awake, alert, cooperative. Follows some simple commands. Fluent, perseverative speech. + Glabella and Right grasp reflex. Decreased blink to threat from right. No drift. Good grasp strength IMP: 1. Moderate B/L cerebral dysfunction (OMS, Chronic) c/w Alzheimers +/- multiinfarct dementia. 2. Fluent (Wernicke's type) aphasia due to recent CVA. 3. Deterioration leading to admission could be due to Toxic-metabolic encephalopathy (infection) but would also consider seizure after recent CVA. SUGGEST: R/O an embolic source of CVA (Distal MCA territory possible suggestive of infarct.) Consider donepezil 5 mg PO q AM for cognition Out patient speech therapy. Observe off AED's unless episodes recur. Dr. Hampton will picker/puller on Monday. Thank you very much, Jovany Robles MD
[2017-12-16] MEDS ORDERED: PT OWN MED DRAWER 7, Y5N ONE (22:12)
[2017-12-16] MEDS: SENNOSIDES 8.6MG TABLET (FP) PO SCH (22:23)
[2017-12-16] MEDS: ROSUVASTATIN CA 10 MG TABLET (FP) PO SCH (22:23)
[2017-12-16] MEDS: DOCUSATE SODIUM 100 MG CAPSULE (FP) PO SCH (22:23)
[2017-12-17] MEDS: sitaGLIPtin PHOSPHATE 50 MG TABLET PO SCH (06:10)
[2017-12-17] MEDS: NYSTATIN 500,000 UNITS/5 ML SUSPENSION PO SCH ×3 (06:10→17:25)
[2017-12-17] MEDS: HEPARIN NA (PORCINE) 5,000 UNITS/ML 1ML VIAL SQ SCH ×3 (06:10→21:00)
[2017-12-17] MEDS: LYTES/YERBA SANTA 240 ML BOTTLE MM SCH ×3 (06:10→21:01)
[2017-12-17] MEDS: INSULIN SLIDING SCALE (NOVOLOG) 1 VIAL SQ SCH ×4 (06:11→21:00)
[2017-12-17] MEDS ORDERED: PT OWN MED DRAWER 7, Y5N ONE ×2 (06:17→20:55)
[2017-12-17] MEDS: MULTIVITAMINS (DAILY MVI) TABLET (FP) PO SCH (09:01)
[2017-12-17] MEDS: VITAMIN B COMP W-C 1 EA TABLET PO SCH (09:01)
[2017-12-17] MEDS: SOLIFENACIN SUCCINATE 5 MG TAB (FP) PO SCH (09:01)
[2017-12-17] MEDS: RANITIDINE HCL 150 MG TABLET (FP) PO SCH ×2 (09:01→21:00)
[2017-12-17] MEDS: CLOPIDOGREL BISULFATE 75 MG TABLET (FP) PO SCH (09:01)
[2017-12-17] MEDS: ASPIRIN 81 MG CHEWABLE TABLETS PO SCH (09:01)
[2017-12-17] MEDS ORDERED: INSULIN (NOVOLOG) ASPART 100 UNITS/ML 10ML VIAL ONE (11:30)
--- NOTE | 2017-12-17 11:44 | PN ---
Progress Note, Physician - Current Medication List Current Medications: Active Medications Aspirin (Asa -) 81 mg PO DAILY [facility] Last Admin: 12/17/17 09:01 Dose: 81 mg Clopidogrel Bisulfate (Plavix -) 75 mg PO DAILY [facility] Last Admin: 12/17/17 09:01 Dose: 75 mg Docusate Sodium (Colace -) 300 mg PO HS [facility] Last Admin: 12/16/17 22:23 Dose: 300 mg Heparin Sodium (Porcine) (Heparin -) 5,000 unit SQ TID [facility] Last Admin: 12/17/17 06:10 Dose: 5,000 unit Insulin Aspart (Novolog Vial Sliding Scale -) 1 vial SQ ACHS [facility]; Protocol Last Admin: 12/17/17 11:33 Dose: 2 unit Magnesium Hydroxide (Milk Of Magnesia -) 30 ml PO DAILY PRN PRN Reason: CONSTIPATION Last Admin: 12/16/17 11:00 Dose: 30 ml Multivit/Ca Carb/B Cmplx/FA/Prenat (Nephro-Boby -) 1 tablet PO DAILY [facility] Last Admin: 12/17/17 09:01 Dose: 1 tablet Multivitamins/Minerals/Vitamin C (Tab-A-Vit -) 1 tab PO DAILY [facility] Last Admin: 12/17/17 09:01 Dose: 1 tab Nystatin (Nystatin Oral Suspension -) 500,000 units PO Q6HPO [facility] Last Admin: 12/17/17 11:38 Dose: 500,000 units Ranitidine HCl (Zantac -) 150 mg PO BID [facility] Last Admin: 12/17/17 09:01 Dose: 150 mg Rosuvastatin Calcium (Crestor -) 10 mg PO [facility] Last Admin: 12/16/17 22:23 Dose: 10 mg Saliva Substitute (Mouthkote Solution -) 1 applic MM TID [facility] Last Admin: 12/17/17 06:10 Dose: 1 applic Senna (Senna -) 1 tab PO HS [facility] Last Admin: 12/16/17 22:23 Dose: 1 tab Sitagliptin Phosphate (Januvia -) 50 mg PO DAILY@0700 [facility] Last Admin: 12/17/17 06:10 Dose: 50 mg Solifenacin (Vesicare -) 10 mg PO DAILY [facility] Last Admin: 12/17/17 09:01 Dose: 10 mg - Objective Vital Signs: Vital Signs Temperature 97.9 F 12/17/17 09:51 Pulse Rate 70 12/17/17 09:51 Respiratory Rate 20 12/17/17 09:51 Blood Pressure 116/55 12/17/17 09:51 O2 Sat by Pulse Oximetry (%) 96 12/17/17 04:00 Cardiovascular: Yes: S1, S2 Respiratory: Yes: Regular, CTA Bilaterally Gastrointestinal: Yes: Normal Bowel Sounds, Soft Labs: CBC, BMP 12/16/17 08:20 12/16/17 08:20 INR, PTT INR 1.08 (0.82-1.09) 12/15/17 00:45 Problem List - Problems (1) Altered mental status Assessment/Plan: -Improved--sitting in chair CT head negative probably toxic metabolic encephalopathy related to UTI dc iv abx- rocephin urine culture neg neurology on board dvt ppx h/o of cva in past on aspirin and statin check lipid profile MRI-C/W acute cva Code(s): R41.82 - ALTERED MENTAL STATUS, UNSPECIFIED Qualifiers: Altered mental status type: unspecified Qualified Code(s): R41.82 - Altered mental status, unspecified (2) Acute ischemic stroke Assessment/Plan: --MRI noted--acute stroke -neuro follow up Code(s): I63.9 - CEREBRAL INFARCTION, UNSPECIFIED (3) Diabetes mellitus Assessment/Plan: sliding scale hgba1c januvia hold metformin given patient got contrast Code(s): E11.9 - TYPE 2 DIABETES MELLITUS WITHOUT COMPLICATIONS Qualifiers: Diabetes mellitus type: type 2 Diabetes mellitus alf insulin use: without alf use Diabetes mellitus complication status: without complication Qualified Code(s): E11.9 - Type 2 diabetes mellitus without complications
[2017-12-17] MEDS: DOCUSATE SODIUM 100 MG CAPSULE (FP) PO SCH (21:00)
[2017-12-17] MEDS: ROSUVASTATIN CA 10 MG TABLET (FP) PO SCH (21:00)
[2017-12-17] MEDS: SENNOSIDES 8.6MG TABLET (FP) PO SCH (21:01)
[2017-12-18] MEDS: NYSTATIN 500,000 UNITS/5 ML SUSPENSION PO SCH ×3 (00:46→13:58)
[2017-12-18] MEDS: LYTES/YERBA SANTA 240 ML BOTTLE MM SCH ×2 (06:28→13:58)
[2017-12-18] MEDS: HEPARIN NA (PORCINE) 5,000 UNITS/ML 1ML VIAL SQ SCH ×2 (06:28→13:57)
[2017-12-18] MEDS: sitaGLIPtin PHOSPHATE 50 MG TABLET PO SCH (06:28)
[2017-12-18] MEDS: INSULIN SLIDING SCALE (NOVOLOG) 1 VIAL SQ SCH (06:47)
--- NOTE | 2017-12-18 09:34 | PN ---
Progress Note (short form) - Note Progress Note: Neurology HISTORY OF PRESENT ILLNESS: 87 year old female with a past medical history significant for CVA 10/2017, HTN, DM who presented to the ED with altered mental status. As per the ED note daughter reported pt was less verbal and more confused at MT. These symptoms were similar to when she had her CVA. She was not cooperative for evaluation, opens eyes briefly but somnolent on Monday. CT head completed and without acute changes at that time. OF note, UA with possible UTI. I ordered MRI brain and completed over weekend. Dr. Robles with follow up appreciated. 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 Patient already on dual antiplatelet, would not increase any futher. Does not qualify for anticoag as patient without afib or arrythmia to my knowledge. Completed Carotids and Echo on recent admission. Neurologically asymptomatic without new deficits and is interactive and cooperative and at baseline. Active Medications Aspirin (Asa -) 81 mg PO DAILY [facility] Last Admin: 12/17/17 09:01 Dose: 81 mg Clopidogrel Bisulfate (Plavix -) 75 mg PO DAILY [facility] Last Admin: 12/17/17 09:01 Dose: 75 mg Docusate Sodium (Colace -) 300 mg PO HS [facility] Last Admin: 12/17/17 21:00 Dose: 300 mg Donepezil HCl (Aricept -) 5 mg PO DAILY [facility] Heparin Sodium (Porcine) (Heparin -) 5,000 unit SQ TID [facility] Last Admin: 12/18/17 06:28 Dose: 5,000 unit Magnesium Hydroxide (Milk Of Magnesia -) 30 ml PO DAILY PRN PRN Reason: CONSTIPATION Last Admin: 12/16/17 11:00 Dose: 30 ml Multivit/Ca Carb/B Cmplx/FA/Prenat (Nephro-Boby -) 1 tablet PO DAILY [facility] Last Admin: 12/17/17 09:01 Dose: 1 tablet Multivitamins/Minerals/Vitamin C (Tab-A-Vit -) 1 tab PO DAILY [facility] Last Admin: 12/17/17 09:01 Dose: 1 tab Nystatin (Nystatin Oral Suspension -) 500,000 units PO Q6HPO [facility] Last Admin: 12/18/17 06:28 Dose: 500,000 units Ranitidine HCl (Zantac -) 150 mg PO BID [facility] Last Admin: 12/17/17 21:00 Dose: 150 mg Rosuvastatin Calcium (Crestor -) 10 mg PO HS [facility] Last Admin: 12/17/17 21:00 Dose: 10 mg Saliva Substitute (Mouthkote Solution -) 1 applic MM TID [facility] Last Admin: 12/18/17 06:28 Dose: 1 applic Senna (Senna -) 1 tab PO HS [facility] Last Admin: 12/17/17 21:01 Dose: 1 tab Solifenacin (Vesicare -) 10 mg PO DAILY [facility] Last Admin: 12/17/17 09:01 Dose: 10 mg Vital Signs Temperature 97.8 F 12/18/17 06:00 Pulse Rate 64 12/18/17 06:00 Respiratory Rate 20 12/18/17 06:00 Blood Pressure 120/63 12/18/17 06:00 O2 Sat by Pulse Oximetry (%) 98 12/18/17 04:00 GENERAL: Awake alert interactive following commands HEAD: Normal with no signs of trauma. EYES: Pupils equal, round and reactive to light, extraocular movements intact, sclera anicteric, conjunctiva clear. No lid lag. EARS, NOSE, THROAT: Ears normal, nares patent, Pt refused to open mouth fully, mucous membranes appear moist NECK: Normal range of motion, supple without lymphadenopathy, JVD, or masses. LUNGS: Breath sounds equal, clear to auscultation bilaterally. No wheezes, and no crackles. No accessory muscle use. HEART: Regular rate and rhythm, normal S1 and S2 without murmur, rub or gallop. ABDOMEN: Soft, nontender, not distended, normoactive bowel sounds, no guarding, no rebound, no masses. No hepatomegaly or splenomegaly. MUSCULOSKELETAL: Normal range of motion at all joints. No bony deformities or tenderness. No CVA tenderness. UPPER EXTREMITIES: 2+ pulses, warm, well-perfused. No cyanosis. No clubbing. No peripheral edema. LOWER EXTREMITIES: 2+ pulses, warm, well-perfused. No calf tenderness. No peripheral edema. NEUROLOGICAL: Cranial nerves II-XII intact, moves extremities grossly, sensory intact to tactile stim, PSYCHIATRIC: Cooperative. Good eye contact. Appropriate mood and affect. SKIN: Warm, dry, normal turgor, no rashes or lesions noted, normal capillary refill. CBCD WBC 4.7 K/mm3 (4.0-10.0) 12/16/17 08:20 RBC 3.43 M/mm3 (3.60-5.2) L 12/16/17 08:20 Hgb 10.9 GM/dL (10.7-15.3) 12/16/17 08:20 Hct 32.2 % (32.4-45.2) L 12/16/17 08:20 MCV 93.9 fl (80-96) 12/16/17 08:20 MCHC 33.9 g/dl (32.0-36.0) 12/16/17 08:20 RDW 14.5 % (11.6-15.6) 12/16/17 08:20 Plt Count 202 K/MM3 (134-434) 12/16/17 08:20 MPV 9.9 fl (7.5-11.1) 12/16/17 08:20 CMP Sodium 141 mmol/L (136-145) 12/16/17 08:20 Potassium 4.8 mmol/L (3.5-5.1) 12/16/17 08:20 Chloride 106 mmol/L (98-107) 12/16/17 08:20 Carbon Dioxide 26 mmol/L (21-32) 12/16/17 08:20 Anion Gap 9 (8-16) 12/16/17 08:20 BUN 8 mg/dL (7-18) 12/16/17 08:20 Creatinine 0.9 mg/dL (0.55-1.02) 12/16/17 08:20 Creat Clearance w eGFR 59.37 (>60) 12/16/17 08:20 Random Glucose 130 mg/dL (74-106) H 12/16/17 08:20 Calcium 9.4 mg/dL (8.5-10.1) 12/16/17 08:20 Total Bilirubin 0.4 mg/dL (0.2-1.0) 12/16/17 08:20 AST 23 U/L (15-37) 12/16/17 08:20 ALT 41 U/L (12-78) 12/16/17 08:20 Alkaline Phosphatase 53 U/L (45-117) 12/16/17 08:20 Total Protein 7.3 g/dl (6.4-8.2) 12/16/17 08:20 Albumin 3.6 g/dl (3.4-5.0) 12/16/17 08:20 CARDIAC ENZYMES Creatine Kinase 47 IU/L (26-192) 12/15/17 00:45 Troponin I < 0.02 ng/ml (0.00-0.05) 12/15/17 00:[address] head reviewed MRI brain reviewed ASSESSMENT/PLAN: 87 year old female with a past medical history significant for CVA 10/2017, HTN, DM who presented to the ED with altered mental status. As per the ED note daughter reported pt was less verbal and more confused at MT. These symptoms were similar to when she had her CVA. She was not cooperative for evaluation, opens eyes briefly but somnolent on Monday. CT head completed and without acute changes at that time. OF note, UA with possible UTI. I ordered MRI brain and completed over weekend. Dr. Robles with follow up appreciated. 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 Patient already on dual antiplatelet, would not increase any futher. Does not qualify for anticoag as patient without afib or arrythmia to my knowledge. Completed Carotids and Echo on recent admission. Neurologically asymptomatic without new deficits and is interactive and cooperative and at baseline. IV abx as per primary team. Low Mag repleted. Maintain hydration and adequate PO intake. Monitor BP, maintain normotensive range. Cont antiplatelet regiment. Monitor glucose, maintain euglycemic range. DVT ppx.
[2017-12-18] MEDS ORDERED: DONEPEZIL HCL 5 MG TABLET (FP) PO SCH (10:00)
[2017-12-18] MEDS: CLOPIDOGREL BISULFATE 75 MG TABLET (FP) PO SCH (10:51)
[2017-12-18] MEDS: ASPIRIN 81 MG CHEWABLE TABLETS PO SCH (10:51)
[2017-12-18] MEDS: VITAMIN B COMP W-C 1 EA TABLET PO SCH (10:51)
[2017-12-18] MEDS: MULTIVITAMINS (DAILY MVI) TABLET (FP) PO SCH (10:51)
[2017-12-18] MEDS: RANITIDINE HCL 150 MG TABLET (FP) PO SCH (10:51)
[2017-12-18] MEDS: SOLIFENACIN SUCCINATE 5 MG TAB (FP) PO SCH (10:52)
--- NOTE | 2017-12-18 10:58 | DS ---
Physical Examination Vital Signs: Vital Signs Temperature 97.8 F 12/18/17 06:00 Pulse Rate 64 12/18/17 06:00 Respiratory Rate 20 12/18/17 06:00 Blood Pressure 120/63 12/18/17 06:00 O2 Sat by Pulse Oximetry (%) 98 12/18/17 04:00 Findings/Remarks: 87 year old female with a past medical history significant for CVA 10/2017, HTN, DM who presented to the ED with altered mental status. As per the ED note daughter reported pt was less verbal and more confused at CT. These symptoms were similar to when she had her CVA. She was not cooperative for evaluation, opens eyes briefly but somnolent on Monday. CT head completed and without acute changes at that time. OF note, UA with possible UTI. I ordered MRI brain and completed over weekend. Dr. Robles with follow up appreciated. 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 Patient already on dual antiplatelet, would not increase any futher. Does not qualify for anticoag as patient without afib or arrythmia to my knowledge. Completed Carotids and Echo on recent admission. Neurologically asymptomatic without new deficits and is interactive and cooperative and at baseline. Constitutional: Yes: Well Nourished, No Distress, Calm Cardiovascular: Yes: Regular Rate and Rhythm Respiratory: Yes: Regular Gastrointestinal: Yes: Normal Bowel Sounds, Soft Musculoskeletal: Yes: Muscle Weakness Neurological: Yes: Alert, Pre-Existing Deficit Psychiatric: Yes: Alert Labs: CBC, BMP 12/16/17 08:20 12/16/17 08:20 Discharge Summary Reason For Visit: AMS Current Active Problems Altered mental status (Acute) Hospital Course: CT head unremarkable. MRI brain showed new infarcts in corpus callosum. Patient already on dual antiplatelet, would not increase any futher. Does not qualify for anticoag as patient without afib or arrythmia to my knowledge. Completed Carotids and Echo on recent admission. Neurologically asymptomatic without new deficits and is interactive and cooperative and at baseline. IV abx as per primary team. Low Mag repleted. Maintain hydration and adequate PO intake. Monitor BP, maintain normotensive range. Cont antiplatelet regiment. Monitor glucose, maintain euglycemic range. DVT ppx. Condition: Stable - Instructions Referrals: Terri Chavez MD [Primary Care Provider] - Disposition: INTERMEDIATE FACILITY - Home Medications Comprehensive Discharge Medication List: Ambulatory Orders Aspirin [ASA -] 81 mg PO DAILY 03/15/16 Multivitamin [Poly-Vitamin] 1 tab PO DAILY 03/15/16 Solifenacin Succinate [Vesicare -] 10 mg PO DAILY 03/15/16 Vitamin B Complex 1 each PO DAILY 03/15/16 Heparin - 5,000 unit SQ TID vial 11/21/17 Nystatin Oral Suspension - [Nystatin Oral Susp 167702 Units/5 ML -] 500,000 units PO Q6HPO cup 11/21/17 Rosuvastatin [Crestor -] 10 mg PO HS tablet 11/21/17 Sennosides [Senna -] 1 tab PO HS tablet 11/21/17 Sitagliptin Phosphate [Januvia -] 50 mg PO DAILY@0700 tablet 11/21/17 Acetaminophen 325 mg PO QID PRN 12/15/17 Brad/D3/Mag11/Zinc/Sub Plant Manager/Gurdeep/Bor [Caltrate 600+D Plus Tablet] 1 each PO BID Clopidogrel Bisulfate [Plavix] 75 mg PO DAILY 12/15/17 Docusate Sodium [Move It Along] 300 mg PO HS 12/15/17 Famotidine [Pepcid] 20 mg PO BID 12/15/17 Lytes/Yerba Nuha [Mouthkote Solution] 1 applic MM TID 12/15/17 Magnesium Hydroxide [Milk of Magnesia] 30 ml PO DAILY PRN 12/15/17 metFORMIN HCL [Glucophage -] 500 mg PO BID 12/15/17
[2017-12-18] MEDS ORDERED: PNEUMOC 13-VAL CONJ-DIP CRM/PF 0.5 ML DISP.SYRIN IM ONE (12:00)
[2017-12-18 12:48] VITALS: BP 105/63; PULSE 75; TEMP 98.1
[2017-12-18] MEDS ORDERED: PT OWN MED DRAWER 7, Y5N ONE (13:47)
== END 2017-12-18 15:38 | DRG 64 ==
LOC: JER 23:44 → JERBED 12-15 03:08 → UNDOADMOB 12-15 03:11 → J5S 12-15 04:42 → OBSVTOIN 12-18 10:53
PROVIDERS: ADMIT Internal Medicine; ATTEND Family Medicine
DX: I63.9 Cerebral infarction, unspecified (principal); G93.41 Metabolic encephalopathy; N39.0 Urinary tract infection, site not specified; I10 Essential (primary) hypertension; E78.5 Hyperlipidemia, unspecified; E11.9 Type 2 diabetes mellitus without complications; E83.42 Hypomagnesemia; I69.320 Aphasia following cerebral infarction; G30.9 Alzheimer's disease, unspecified; F02.80 Dementia in other diseases classified elsewhere, unspecified severity, without behavioral disturbance, psychotic disturbance, mood disturbance, and anxiety
CPT/HCPCS: 36415; 70450-TC; 70551-TC; 71045-TC-FY; 80048; 80053; 80061; 81003; 81015; 82550; 82803; 82962; 83036; 83605; 83721; 83735; 83880; 84100; 84484; 85025; 85610; 85730; 87086; 90670; 93005; 93010; 97116-GP; 97161-GP; 99283-25; G0378; J1644

== ENCOUNTER → 2018-11-06 | Day surgery (SDC) | payer OTHER | LOC: JRADIR 10:12 ==

== ENCOUNTER 2019-03-11 14:27 | Inpatient (IN) | payer OTHER ==
[2019-03-11 14:44] VITALS: BMI 26.6
--- NOTE | 2019-03-11 14:44 | PDOC ---
Rapid Medical Evaluation Time Seen by Provider: 03/11/19 14:37 Medical Evaluation: Allergies Allergy/AdvReac Type Severity Reaction Status Date / Time No Known Allergies Allergy Verified 12/14/17 23:48 03/11/19 14:37 I have performed a brief in-person evaluation of this patient. The patient presents with a chief complaint of: 2 episodes of vomiting, nausea since 1 pm today, no abdominal pain, no diarrhea. No numbness/tingling, no weakness, no change in speech but daughter says that pt had bizarre behavior yesterday at 8p, which resolved this am, Pt did not want to eat her food and "saw a girl ". Pertinent physical exam findings: L facial droop. Otherwise brief neuro unremarkable. I have ordered the following: CBC, CMP, cardiac enzymes, EKG, Fingerstick, CT head The patient will proceed to the ED for further evaluation. 03/11/19 15:04 Discharge Disposition - Diagnosis Vomiting - Referrals Referrals: Terri Chavez MD [Primary Care Provider] - - Patient Instructions - Post Discharge Activity
--- NOTE | 2019-03-11 15:23 | PDOC ---
Attending Attestation - Resident Resident Name: [email or web address] - ED Attending Attestation I have performed the following: I have examined & evaluated the patient, The case was reviewed & discussed with the resident, I agree w/resident's findings & plan, Exceptions are as noted - HPI HPI: 03/11/19 15:38 Mr. Constantino is an 88 yo F with a past medical history significant for CVA 10/2017 , HTN, DM, mild dementia who presented to the ED with daughter from radiology due to vomiting. Pt was noted last night to be confused (Asking about a ? refusing to eat , refusing to allow her home health aid to eat) This morning, pt woke up and was asking what happened last night Pt was seen today for a vascular test While there she was noted to vomit a large volume After she was cleaned up, pt then vomited again She was encouraged to come to the ER The patient voices no complaints No chest pain, no abdominal pain, no headache No shortness of breath No fevers or chills No weakness No dysuria Pt daughter is very concerned because when she had a stroke, she presented to the ER similarly, was found to have a UTI for which she was treated as an outpatient, she returned two days later with stroke PAST MEDICAL HISTORY: HTN, HLD, CVA 11/14/17, syncope, DM, dementia PAST SURGICAL HISTORY: hip replacement Family History: non contributory AllergiesL NKDA - Physicial Exam PE: 03/11/19 16:12 GENERAL: The patient is in no acute distress. ENT: Ears normal, nares patent, oropharynx clear without exudates. Moist mucous membranes. NECK: Normal range of motion LUNGS: Breath sounds equal, clear to auscultation bilaterally. No wheezes, and no crackles. HEART:Regular rate and rhythm, normal S1 and S2 without murmur, rub or gallop. ABDOMEN: Soft, nontender, normoactive bowel sounds. EXTREMITIES: Normal range of motion, no edema. NEUROLOGICAL: A&O x 2, Cranial nerves II through XII grossly intact. Normal speech. No focal neurological deficits. Motor strength 5/5 upper and lower extremities SKIN: Warm, Dry, normal turgor, no rashes or lesions noted. 03/11/19 16:14 - Medical Decision Making 03/11/19 16:13 88 yo F presenting with a complaint of vomiting x 2 and possibly alterations in mental status DD: Transient Confusion: UTI, electrolyte abn, CVA, TIA Vomiting: Biliary pathology, SBO, gastritis, gastroenteritis Will do: Labs UA CT EKG Pt daughter would like her to be admitted given events of last year 03/11/19 17:43 Laboratory Tests 03/11/19 03/11/19 03/11/19 15:30 15:38 15:38 WBC 8.6 Hgb 13.9 Hct 41.7 Plt Count 227 BUN 15.5 Creatinine 1.1 Creatine Kinase 142 Troponin I < 0.02 CT head: low attenuation density in the left occipital lobe extending to the parieto-occipital junction --> chronic infarct or encephalomalacia. Focal low attenuation density in the left grace ventricular white matter suspicious for infarct of indeterminate age. atrophy, ventricular dilatation Non ICH 03/11/19 17:44 Will plan to admit Straight cath for UA
--- NOTE | 2019-03-11 15:51 | PDOC ---
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 Per the daughter, last night (1999) the patient was speaking about people who had who she couldn't name or didn't know, she was also not wanting to share her food with her aid who she though was trying to steal it. This AM those symptoms had resolved. While getting an arterial doppler the pt vomited once and thus presented to the ED Upon examination the pt denies any symptoms. In RME the provider pointed out some possible left sided facial droop that she is unsure if it was new or not. 03/11/19 15:45 tPA Exclusion checklist 3-4.5h - Time Elapsed Date last known well: 03/10/19 Time last known well: 20:00 Elaspsed time: Day(s) and 22 Hour(s) and 29 Minutes - Ineligibility reason(s) Reasons No tPA given: Outside of window - delayed arrival NIH Stroke Scale - Last Known Well Date/Time & Onset Date Last Known Well: 03/10/19 Time Last Known Well: 20:00 - Initial Evaluation Level of consciousness: Alert Ask patient the month and their age: Answers both correctly Ask patient to open & close eyes; make fist and let go: Obeys both correctly Best gaze (horizontal eye movement): Normal Visual field testing: No visual field loss Facial paresis (Show teeth/raise eyebrows/close eyes tight): Normal symmetrical movement Motor Function: Left Arm: Normal Motor Function: Right Arm: Normal (extends arm 90 (or 45) degrees for 10 seconds without drift Motor Function: Left Leg: Normal (extends leg 30 degrees for 5 seconds without drift) Motor Function: Right Leg: Normal (extends leg 30 degrees for 5 seconds without drift) Limb Ataxia: Present in two limbs Sensory(Use pinprick test arms,legs,trunk,face/side to side): Normal Best language (Describe picture, name items, read sentences): No Aphasia Dysarthria (read several words): Normal articulation Extinction and Inattention: No abnormality - Total Score NIH Stroke Scale Score: 2 Past History - Past Medical History Allergies/Adverse Reactions: Allergies Allergy/AdvReac Type Severity Reaction Status Date / Time No Known Allergies Allergy Verified 03/11/19 14:38 Home Medications: Ambulatory Orders Aspirin [ASA -] 81 mg PO DAILY 03/15/16 Multivitamin [Poly-Vitamin] 1 tab PO DAILY 03/15/16 Solifenacin Succinate [Vesicare -] 10 mg PO DAILY 03/15/16 Vitamin B Complex 1 each PO DAILY 03/15/16 Rosuvastatin [Crestor -] 10 mg PO HS tablet 11/21/17 Sennosides [Senna -] 1 tab PO HS tablet 11/21/17 Acetaminophen 325 mg PO QID PRN 12/15/17 Brad/D3/Mag11/Zinc/Coater Operator/Gurdeep/Bor [Caltrate 600+D Plus Tablet] 1 each PO BID Clopidogrel Bisulfate [Plavix] 75 mg PO DAILY 12/15/17 Docusate Sodium [Move It Along] 300 mg PO HS 12/15/17 Famotidine [Pepcid] 20 mg PO BID 12/15/17 Lytes/Yerba Nuha [Mouthkote Solution -] 1 applic MM TID 12/15/17 metFORMIN HCL [Glucophage -] 500 mg PO BID 12/15/17 Donepezil HCl [Aricept -] 5 mg PO DAILY tablet 12/18/17 Insulin Sliding Scale [Novolog Vial Sliding Scale -] 1 vial SQ ACHS units 12/18 Anemia: No Asthma: No CVA: Yes (2017) COPD: No Dementia: Yes Diabetes: Yes HTN: Yes Hypercholesterolemia: Yes - Surgical History Orthopedic Surgery: Yes (hip replacement) - Immunization History Immunization Up to Date: Yes - Psycho Social/Smoking Cessation Hx Smoking History: Never smoked Have you smoked in the past 12 months: No If you are a former smoker, when did you quit?: 50 YRS AGO Hx Alcohol Use: No Drug/Substance Use Hx: No Substance Use Type: None Review of Systems - Review of Systems Able to Perform ROS?: Yes Comments:: GENERAL/CONSTITUTIONAL: No fever or chills. No weakness HEAD, EYES, EARS, NOSE AND THROAT: No change in vision. No change in hearing. No sore throat CARDIOVASCULAR: No chest pain or shortness of breath RESPIRATORY: Denies cough, hemoptysis GASTROINTESTINAL: No diarrhea or constipation GENITOURINARY: No dysuria, frequency, or change in urination MUSCULOSKELETAL: No joint or muscle swelling or pain. No neck or back pain SKIN: No rash NEUROLOGIC: No headache, vertigo, loss of consciousness, or change in strength/ sensation ENDOCRINE: No increased thirst. No abnormal weight change HEMATOLOGIC/LYMPHATIC: +Plavix/ASA ALLERGIC/IMMUNOLOGIC: No hives or skin allergy 03/11/19 15:51 Is the patient limited Par[place]ayan proficient: No *Physical Exam - Vital Signs Last Vital Signs Temp Pulse Resp BP Pulse Ox 97.8 F 81 17 139/66 100 03/11/19 14:38 03/11/19 14:38 03/11/19 14:38 03/11/19 14:38 03/11/19 14:38 - Physical Exam Comments: GENERAL: Awake, alert, and oriented to person/place/time, in no acute distress HEAD: No signs of trauma, normocephalic, atraumatic EYES: PERRLA, EOMI, sclera anicteric, conjunctiva clear ENT: Hearing grossly normal, nares patent, oropharynx clear without exudates. Moist mucosa LUNGS: No distress, speaks in full sentences, clear to auscultation bilaterally HEART: Regular rate and rhythm, normal S1 and S2, no murmurs appreciated, peripheral pulses normal and equal bilaterally ABDOMEN: Soft, nontender, normoactive bowel sounds. No guarding, no rebound EXTREMITIES: Normal inspection, Normal range of motion, no edema. No clubbing or cyanosis NEUROLOGICAL: Cranial nerves II through XII grossly intact. Normal speech, no focal sensory deficits. Mild BUE ataxia. SKIN: Warm, Dry 03/11/19 18:30 ED Treatment Course - LABORATORY CBC & Chemistry Diagram: 03/11/19 15:38 03/11/19 15:30 - RADIOLOGY Radiograph Interpretation: CT Head w/o contrast IMPRESSION: Generalized volume loss with moderate ventricular dilatation and periventricular chronic microvascular ischemic disease changes. Interval encephalomalacia likely a chronic infarct in the left posterior temporal and left occipital lobe with ex vacuo dilatation of the left occipital horn. There is also interval focal low-attenuation density in the left frontal lobe, anteriorly with widening of the cortical sulci suggestive of encephalomalacia/ chronic infarct. Faint focal low-attenuation density in the left periventricular white matter measuring 9 mm suspicious for a focal infarct of indeterminate age. Correlate clinically for further evaluation and follow-up. 03/11/19 17:10 Medical Decision Making - Medical Decision Making The pt is an 88F w/ a history of HLD, previous CVA (plavix/ASA), DM who presents for concern of stroke symptoms. ED Course CT head w/o Labs sent ECG CXR 03/11/19 15:54 ECG w/ NSR; HR 73; QTc 451; left axis deviation; No MATTIE 03/11/19 16:55 CT head findings noted above, plan for admission for MRI and r/o stroke No leukocytosis No anemia Lytes wnl No GARCÍA LFTs wnl Trop I neg 03/11/19 17:10 Pt signed out to [facility] Admitting Consult order placed to Dr. Robles 03/11/19 18:01 Discharge - Discharge Information Problems reviewed: Yes Clinical Impression/Diagnosis: History of stroke Vomiting Qualifiers: Vomiting type: unspecified Vomiting Intractability: non-intractable Nausea presence: unspecified Qualified Code(s): R11.10 - Vomiting, unspecified Diabetes mellitus Qualifiers: Diabetes mellitus type: other specified (including LUKAS) Diabetes mellitus prison insulin use: unspecified prison insulin use status Diabetes mellitus complication status: with other specified complication Qualified Code(s ): E13.69 - Other specified diabetes mellitus with other specified complication Condition: Good - Admission Yes - Follow up/Referral - Patient Discharge Instructions - Post Discharge Activity
[2019-03-11 15:55] LABS: BASO % 0.3 % (0-2.0); EOS % 1.2 % (0-4.5); HEMATOCRIT 41.7 % (32.4-45.2); HEMOGLOBIN 13.9 GM/dL (10.7-15.3); LYMPH % 13.2 % (8-40); MCH 30.7 pg (25.7-33.7); MCHC 33.2 g/dl (32.0-36.0); MEAN CELL VOLUME 92.4 fl (80-96); MEAN PLT VOLUME 10.3 fl (7.5-11.1); MONO % 6.7 % (3.8-10.2); NEUT % 78.6 % (42.8-82.8); PLATELET COUNT 227 K/MM3 (134-434); RBC 4.52 M/mm3 (3.60-5.2); WHITE BLOOD COUNT 8.6 K/mm3 (4.0-10.0)
[2019-03-11 16:45] LABS: ALBUMIN 4.1 g/dl (3.4-5.0); BILIRUBIN,TOTAL 0.5 mg/dL (0.2-1); BLOOD UREA NITROGEN 15.5 mg/dL (7-18); CALCIUM 10.4 mg/dL (8.5-10.1); CREATININE 1.1 mg/dL (0.55-1.3); MAGNESIUM 1.6 mg/dL (1.8-2.4); PHOSPHOROUS 3.9 mg/dL (2.5-4.9); POTASSIUM 4.3 mmol/L (3.5-5.1)
--- NOTE | 2019-03-11 18:21 | HP ---
<Javier Chacon - Last Filed: 03/11/19 18:50> CHIEF COMPLAINT: Confusion; L facial palsy PCP: Scott/Mayra VARGHESE HISTORY OF PRESENT ILLNESS: 88yo F with h/o 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 Pt had arterial dopplers performed today per her vascular management by Dr. Ring. During her ultrasound pt vomited NB/NB emesis and proceeded to continue vomiting. Pt's daughter brought her to the ER for further investigation. Pt's daughter notes that last night pt was acutely confused talking about "seeing people" and "to not eat the food." Pt had similar episode with her prior CVA. Currently pt feels at baseline, however she cannot remember last night and she felt previously weak during her vomiting episodes. Pt denies LINDO, lightheadedness, weakness, numbness , SOB, cough, CP, palpitations, abdominal pain, dysuria, polyuria,. Recent Travel: Denies PAST MEDICAL HISTORY: As above PAST SURGICAL HISTORY: hip replacement Social History: Smoking: denies Alcohol: denies Drugs: denies Allergies No Known Allergies Allergy (Verified 03/11/19 14:38) HOME MEDICATIONS: Home Medications Medication Instructions Recorded Aspirin [ASA -] 81 mg PO DAILY 03/15/16 Multivitamin [Poly-Vitamin] 1 tab PO DAILY 03/15/16 Solifenacin Succinate [Vesicare -] 10 mg PO DAILY 03/15/16 Vitamin B Complex 1 each PO DAILY 03/15/16 Rosuvastatin [Crestor -] 10 mg PO HS tablet 11/21/17 Sennosides [Senna -] 1 tab PO HS tablet 11/21/17 Acetaminophen 325 mg PO QID PRN 12/15/17 Brad/D3/Mag11/Zinc/Box Sealing Machine Operator/Gurdeep/Bor 1 each PO BID 12/15/17 [Caltrate 600+D Plus Tablet] Clopidogrel Bisulfate [Plavix] 75 mg PO DAILY 12/15/17 Docusate Sodium [Move It Along] 300 mg PO HS 12/15/17 Famotidine [Pepcid] 20 mg PO BID 12/15/17 Lytes/Yerba Nuha [Mouthkote 1 applic MM TID 12/15/17 Solution -] metFORMIN HCL [Glucophage -] 500 mg PO BID 12/15/17 Donepezil HCl [Aricept -] 5 mg PO DAILY tablet 12/18/17 Insulin Sliding Scale [Novolog 1 vial SQ ACHS units 12/18/17 Vial Sliding Scale -] REVIEW OF SYSTEMS As per HPI PHYSICAL EXAMINATION Vital Signs - 24 hr 03/11/19 14:38 Temperature 97.8 F Pulse Rate 81 Respiratory 17 Rate Blood Pressure 139/66 O2 Sat by Pulse 100 Oximetry (%) GENERAL: Awake, alert, and fully oriented, in no acute distress. HEAD: Normal with no signs of trauma. EYES: Pupils equal, round and reactive to light, extraocular movements intact, sclera anicteric, conjunctiva clear. No lid lag. EARS, NOSE, THROAT: Ears normal, nares patent, oropharynx clear without exudates. Moist mucous membranes. NECK: No JVD, no carotid bruit LUNGS:CTA bilaterally. No wheezes, and no crackles. No accessory muscle use. HEART: RRR, normal S1 and S2 without murmur ABDOMEN: Soft, NT/ND, normoactive bowel sounds, no guarding, EXTREMITIES: 2+ DP pulse R, 1+ DP pulse L, slightly cool, cap refill <2sec, No calf tenderness. No peripheral edema. NEUROLOGICAL: L facial palsy, no dysarthria or aphasia, rest of CN's intact. Strength 4+/5 LUE, 5/5 RUE, 5/5 b/l lower ext. Sensation intact throughout. Normal speech. Gait not observed. No dysmetria PSYCHIATRIC: Cooperative. Good eye contact. Appropriate mood and affect. SKIN: Warm, dry, no rashes or lesions noted, normal capillary refill. Laboratory Results - last 24 hr 03/11/19 03/11/19 03/11/19 15:30 15:38 15:38 WBC 8.6 RBC 4.52 Hgb 13.9 Hct 41.7 MCV 92.4 MCH 30.7 MCHC 33.2 RDW 13.0 Plt Count 227 MPV 10.3 Absolute Neuts (auto) 6.8 Neutrophils % 78.6 D Lymphocytes % 13.2 D Monocytes % 6.7 Eosinophils % 1.2 Basophils % 0.3 Nucleated RBC % 0 Sodium 139 Potassium 4.3 Chloride 104 Carbon Dioxide 31 Anion Gap 5 L BUN 15.5 Creatinine 1.1 Est GFR (CKD-EPI)AfAm 52.28 Est GFR (CKD-EPI)NonAf 45.11 Random Glucose 139 H Calcium 10.4 H Phosphorus 3.9 Magnesium 1.6 L Total Bilirubin 0.5 AST 19 ALT 24 Alkaline Phosphatase 58 Creatine Kinase 142 Troponin I < 0.02 Total Protein 8.0 Albumin 4.1 ASSESSMENT/PLAN: TIA; r/o CVA HTN HLD Type 2 DM Vascular dementia --Neuro consult --Physical therapy ordere --MRI without contrast --Increased Crestor to 20mg HS --Monitor for myalgias --Obtain lipid panel --ASA 81mg and Plavix continued --Discuss with neuro about Plavix + Aggrenox --A1c added-on --BGM q6h; ISS q6h --Hold metformin currently --Continue Aricep 10mg qdaily (home dose) FEN: Fluids: Electrolyte abnormalities: hypoMg Nutrition: speech and swallow PPX: DVT - Lovenox SQ GI - Not indicated Dispo: Tele obs; awaiting MRI w/o contrast Javier Chacon, DO - IM PGY-3 Visit type - Emergency Visit Emergency Visit: Yes ED Registration Date: 03/11/19 Care time: The patient presented to the Emergency Department on the above date and was hospitalized for further evaluation of their emergent condition. - New Patient This patient is new to me today: Yes Date on this admission: 03/11/19 - Critical Care Critical Care patient: No ATTENDING PHYSICIAN STATEMENT I saw and evaluated the patient. I reviewed the resident's note and discussed the case with the resident. I agree with the resident's findings and plan as documented. SUBJECTIVE: OBJECTIVE: ASSESSMENT AND PLAN: <Kyle Meyers - Last Filed: 03/16/19 11:16> Seen and examined; I independently reviewed all labs, vitals, diagnostics, and imaging. In addition I independently verified all resident historical information and physical exam findings. I agree with their assessment and plan and their documented historical and PE findings aside from as supplemented by myself. Family history is not significant for bleeding disorders or sudden cardiac in primary relatives. No new complaints noted in addition to above; 10-sys ROS completed and is negative aside from HPI. VS, labs, imaging reviewed NAD, AAO, resting in bed NC AT EOMI PERRLA Trachea midline and neck supple without any masses Normal HR with s1/2 Lungs CTAB, w/ sym exp NT ND +BS CN2-12 wnl, no fnd Normal mood, appropriate behavior. EKG without new ischemic changes noted CT scan reviewed without any acute issues regarding bleed MRI pending Echo/dopplers, etc pending Assessment and Plan TIA; r/o CVA HTN HLD Type 2 DM Vascular dementia Monitor on tele, asa and statin as outlined, followup on neurology consult and further studies. ATTENDING PHYSICIAN STATEMENT I saw and evaluated the patient. I reviewed the resident's note and discussed the case with the resident. I agree with the resident's findings and plan as documented. SUBJECTIVE: OBJECTIVE: ASSESSMENT AND PLAN:
[2019-03-11] MEDS ORDERED: MAGNESIUM OXIDE 400 MG TABLET (FP) PO ONE (18:52)
[2019-03-11] MEDS ORDERED: MAGNESIUM OXIDE 400 MG TABLET (FP) ONE (19:55)
[2019-03-11] MEDS: INSULIN SLIDING SCALE (NOVOLOG) 1 VIAL SQ SCH ×2 (20:03→23:54)
[2019-03-11] MEDS: LACTATED RINGERS SOLUTION 1,000 ML/1,000 ML INFUS.BAG IV SCH (20:03)
[2019-03-11] MEDS ORDERED: FAMOTIDINE 20 MG TABLET PO SCH (22:00)
[2019-03-11] MEDS: ROSUVASTATIN CA 20 MG TABLET (FP) PO SCH (23:54)
[2019-03-11] MEDS: SENNOSIDES 8.6MG TABLET (FP) PO SCH (23:55)
[2019-03-12] MEDS: INSULIN SLIDING SCALE (NOVOLOG) 1 VIAL SQ SCH ×4 (06:07→23:00)
[2019-03-12 07:16] LABS: HEMATOCRIT 37.2 % (32.4-45.2); HEMOGLOBIN 12.1 GM/dL (10.7-15.3); MCH 30.1 pg (25.7-33.7); MCHC 32.7 g/dl (32.0-36.0); MEAN CELL VOLUME 92.3 fl (80-96); MEAN PLT VOLUME 10.4 fl (7.5-11.1); PLATELET COUNT 192 K/MM3 (134-434); RBC 4.03 M/mm3 (3.60-5.2); RDW 13.1 % (11.6-15.6); WHITE BLOOD COUNT 6.7 K/mm3 (4.0-10.0)
--- NOTE | 2019-03-12 07:20 | PN ---
Progress Note, Physician Chief Complaint: AWAKE ALERT EVENTS REVIEWED NO ACUTE EVENTS OVERNIGHT - Current Medication List Current Medications: Active Medications Aspirin (Asa -) 81 mg PO DAILY [facility] Clopidogrel Bisulfate (Plavix -) 75 mg PO DAILY [facility] Donepezil HCl (Aricept -) 10 mg PO HS [facility] Enoxaparin Sodium (Lovenox -) 30 mg SQ DAILY [facility] Lactated Ringer's (Lactated Ringers Solution) 1,000 ml in 1,000 mls @ 50 mls/ hr IV ASDIR [facility] Last Admin: 03/11/19 20:03 Dose: 50 mls/hr Insulin Aspart (Novolog Vial Sliding Scale -) 1 vial SQ Q6H [facility]; Protocol Last Admin: 03/12/19 06:07 Dose: Not Given Ranitidine HCl (Zantac -) 150 mg PO BID [facility] Rosuvastatin Calcium (Crestor -) 20 mg PO HS [facility] Last Admin: 03/11/19 23:54 Dose: Not Given Senna (Senna -) 1 tab PO [facility] Last Admin: 03/11/19 23:55 Dose: Not Given - Objective Vital Signs: Vital Signs Temperature 98.5 F 03/12/19 06:57 Pulse Rate 58 L 03/12/19 06:57 Respiratory Rate 14 03/12/19 06:57 Blood Pressure 133/51 L 03/12/19 06:57 O2 Sat by Pulse Oximetry (%) 97 03/12/19 05:00 Constitutional: Yes: No Distress Cardiovascular: Yes: Regular Rate and Rhythm Respiratory: Yes: WNL Gastrointestinal: Yes: Soft Genitourinary: Yes: Other Musculoskeletal: Yes: Muscle Weakness Extremities: Yes: WNL Edema: No Peripheral Pulses WNL: Yes Integumentary: Yes: Other Wound/Incision: Yes: Open to air Neurological: Yes: Unsteady Gait, Weakness ...Motor Strength: LLE, RLE Psychiatric: Yes: Other Problem List - Problems (1) Diabetes mellitus Code(s): E11.9 - TYPE 2 DIABETES MELLITUS WITHOUT COMPLICATIONS Qualifiers: Diabetes mellitus type: other specified (including LUKAS) Diabetes mellitus terminal make up operator insulin use: unspecified terminal make up operator insulin use status Diabetes mellitus complication status: with other specified complication Qualified Code (s): E13.69 - Other specified diabetes mellitus with other specified complication (2) History of stroke Code(s): Z86.73 - PRSNL HX OF TIA (TIA), AND CEREB INFRC W/O RESID DEFICITS (3) Vomiting Code(s): R11.10 - VOMITING, UNSPECIFIED Qualifiers: Vomiting type: unspecified Vomiting Intractability: non-intractable Nausea presence: unspecified Qualified Code(s): R11.10 - Vomiting, unspecified (4) Altered mental status Code(s): R41.82 - ALTERED MENTAL STATUS, UNSPECIFIED Qualifiers: Altered mental status type: unspecified Qualified Code(s): R41.82 - Altered mental status, unspecified (5) Claudication of right lower extremity Code(s): I73.9 - PERIPHERAL VASCULAR DISEASE, UNSPECIFIED (6) DVT prophylaxis Code(s): [id number] - (7) Expressive aphasia Code(s): R47.01 - APHASIA (8) HTN (hypertension) Code(s): I10 - ESSENTIAL (PRIMARY) HYPERTENSION Qualifiers: Hypertension type: essential hypertension Qualified Code(s): I10 - Essential (primary) hypertension (9) Hypercholesterolemia Code(s): E78.0 - PURE HYPERCHOLESTEROLEMIA * DO NOT USE * Assessment/Plan NEUROLOGY WORKUP IN PROGRESS MRI BRAIN DONE RESULTS PENDING CHECK LIPIDS/TSH AND SWALLOW EVAL PT EVAL PENDING. DVT PROPHYLAXIS ON ICU TELE MONITORING NO ALARMS
[2019-03-12 07:43] LABS: BLOOD UREA NITROGEN 15.3 mg/dL (7-18); CALCIUM 9.5 mg/dL (8.5-10.1); POTASSIUM 4.3 mmol/L (3.5-5.1)
--- NOTE | 2019-03-12 09:05 | CONSULT ---
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 Pt had arterial dopplers performed today per her vascular management by Dr. Ring. During her ultrasound pt vomited NB/NB emesis and proceeded to continue vomiting. Pt's daughter brought her to the ER for further investigation. Pt's daughter notes that last night pt was acutely confused talking about "seeing people" and "to not eat the food." Pt had similar episode with her prior CVA. Currently pt feels at baseline, however she cannot remember last night and she felt previously weak during her vomiting episodes. Pt denied LINDO, lightheadedness, weakness, numbness , SOB, cough, CP, palpitations, abdominal pain, dysuria, polyuria. Currently, no neurologic complaints. Ct head with L frontal, L temporal, L occipital chronic infarcts. ADmitted and completed MRI brain which showed no acute changes and demonstrate chronic microvascular periventricular white matter disease. Patient denies any neurologic complaints,, contacted by daughter regarding the case and discussed with her in detail as well. Recent Travel: Denies PAST MEDICAL HISTORY: As above PAST SURGICAL HISTORY: hip replacement Social History: Smoking: denies Alcohol: denies Drugs: denies Allergies No Known Allergies Allergy (Verified 03/11/19 14:38) ROS CONSTITUTIONAL: Absent: fever, chills, diaphoresis, generalized weakness, malaise, loss of appetite, weight change HEENT: Absent: rhinorrhea, nasal congestion, throat pain, throat swelling, difficulty swallowing, mouth swelling, ear pain, eye pain, visual changes CARDIOVASCULAR: Absent: chest pain, syncope, palpitations, irregular heart rate, lightheadedness , peripheral edema RESPIRATORY: Absent: cough, shortness of breath, dyspnea with exertion, orthopnea, wheezing, stridor, hemoptysis GASTROINTESTINAL: Absent: abdominal pain, abdominal distension, nausea, vomiting, diarrhea, constipation, melena, hematochezia GENITOURINARY: Absent: dysuria, frequency, urgency, hesitancy, hematuria, flank pain, genital pain MUSCULOSKELETAL: Absent: myalgia, arthralgia, joint swelling, back pain, neck pain SKIN: Absent: rash, itching, pallor HEMATOLOGIC/IMMUNOLOGIC: Absent: easy bleeding, easy bruising, lymphadenopathy, frequent infections ENDOCRINE: Absent: unexplained weight gain, unexplained weight loss, heat intolerance, cold intolerance NEUROLOGIC: Absent: headache, focal weakness or paresthesias, dizziness, unsteady gait, seizure, mental status changes, bladder or bowel incontinence PSYCHIATRIC: Absent: anxiety, depression, suicidal or homicidal ideation, hallucinations. HOME MEDICATIONS: Home Medications Medication Instructions Recorded Aspirin [ASA -] 81 mg PO DAILY 03/15/16 Multivitamin [Poly-Vitamin] 1 tab PO DAILY 03/15/16 Solifenacin Succinate [Vesicare -] 10 mg PO DAILY 03/15/16 Vitamin B Complex 1 each PO DAILY 03/15/16 Rosuvastatin [Crestor -] 10 mg PO HS tablet 11/21/17 Sennosides [Senna -] 1 tab PO HS tablet 11/21/17 Acetaminophen 325 mg PO QID PRN 12/15/17 Brad/D3/Mag11/Zinc/Floor Sander/Gurdeep/Bor 1 each PO BID 12/15/17 [Caltrate 600+D Plus Tablet] Clopidogrel Bisulfate [Plavix] 75 mg PO DAILY 12/15/17 Docusate Sodium [Move It Along] 300 mg PO HS 12/15/17 Famotidine [Pepcid] 20 mg PO BID 12/15/17 Lytes/Yerba Nuha [Mouthkote 1 applic MM TID 12/15/17 Solution -] metFORMIN HCL [Glucophage -] 500 mg PO BID 12/15/17 Donepezil HCl [Aricept -] 5 mg PO DAILY tablet 12/18/17 Insulin Sliding Scale [Novolog 1 vial SQ ACHS units 12/18/17 Vial Sliding Scale -] PHYSICAL EXAMINATION Vital Signs Period Temp Pulse Resp BP Sys/Mcgraw Pulse Ox Last 24 Hr 97.8 F-98.9 F 58-81 14-17 94-152/40-72 97-100 GENERAL: Awake, alert, and fully oriented, in no acute distress. HEAD: Normal with no signs of trauma. EYES: Pupils equal, round and reactive to light, extraocular movements intact, sclera anicteric, conjunctiva clear. No lid lag. EARS, NOSE, THROAT: Ears normal, nares patent, oropharynx clear without exudates. Moist mucous membranes. NECK: No JVD, no carotid bruit LUNGS:CTA bilaterally. No wheezes, and no crackles. No accessory muscle use. HEART: RRR, normal S1 and S2 without murmur ABDOMEN: Soft, NT/ND, normoactive bowel sounds, no guarding, EXTREMITIES: 2+ DP pulse R, 1+ DP pulse L, slightly cool, cap refill <2sec, No calf tenderness. No peripheral edema. NEUROLOGICAL: L facial palsy, no dysarthria or aphasia, rest of CN's intact. Strength 5-/5 LUE, 5/5 RUE, 5/5 b/l lower ext. Sensation intact throughout. Normal speech. Gait not observed. No dysmetria PSYCHIATRIC: Cooperative. Good eye contact. Appropriate mood and affect. SKIN: Warm, dry, no rashes or lesions noted, normal capillary refill. Laboratory Results - last 24 hr 03/11/19 03/11/19 03/11/19 15:30 15:38 15:38 WBC 8.6 RBC 4.52 Hgb 13.9 Hct 41.7 MCV 92.4 MCH 30.7 MCHC 33.2 RDW 13.0 Plt Count 227 MPV 10.3 Absolute Neuts (auto) 6.8 Neutrophils % 78.6 D Lymphocytes % 13.2 D Monocytes % 6.7 Eosinophils % 1.2 Basophils % 0.3 Nucleated RBC % 0 Sodium 139 Potassium 4.3 Chloride 104 Carbon Dioxide 31 Anion Gap 5 L BUN 15.5 Creatinine 1.1 Est GFR (CKD-EPI)AfAm 52.28 Est GFR (CKD-EPI)NonAf 45.11 Random Glucose 139 H Calcium 10.4 H Phosphorus 3.9 Magnesium 1.6 L Total Bilirubin 0.5 AST 19 ALT 24 Alkaline Phosphatase 58 Creatine Kinase 142 Troponin I < 0.02 Total Protein 8.0 Albumin 4.1 ASSESSMENT/PLAN: 88yo F with h/o 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 Pt had arterial dopplers performed today per her vascular management by Dr. Ring. During her ultrasound pt vomited NB/NB emesis and proceeded to continue vomiting. Pt's daughter brought her to the ER for further investigation. Pt's daughter notes that last night pt was acutely confused talking about "seeing people" and "to not eat the food." Pt had similar episode with her prior CVA. Currently pt feels at baseline, however she cannot remember last night and she felt previously weak during her vomiting episodes. Pt denied LINDO, lightheadedness, weakness, numbness , SOB, cough, CP, palpitations, abdominal pain, dysuria, polyuria. Ct head with L frontal, L temporal, L occipital chronic infarcts. ADmitted and completed MRI brain which showed no acute infarct. Continue Statin, LDL at 67. Continue ASA, Plavix combination. Medication compliance. Monitor BP, maintain < 160/90. Monitor glucose, maintain euglycemic range. Can continue Aricept, DVT ppx. Continue medical optimization and management. Defer to primary regarding dispo and discharge. Does not need to be on higher dose of statin as LDL is 67. Does not require modification of home antiplatelet regiment. Discussed with daughter on phone in detail.
[2019-03-12] MEDS: ENOXAPARIN NA (PORCINE) 30 MG/0.3 ML DISP.SYRIN SQ SCH (09:55)
[2019-03-12] MEDS: CLOPIDOGREL BISULFATE 75 MG TABLET (FP) PO SCH (09:55)
[2019-03-12] MEDS: RANITIDINE HCL 150 MG TABLET (FP) PO SCH ×2 (09:55→21:05)
[2019-03-12] MEDS: ASPIRIN 81 MG CHEWABLE TABLETS PO SCH (09:55)
[2019-03-12] MEDS ORDERED: DONEPEZIL HCL 5 MG TABLET (FP) PO SCH (10:00)
[2019-03-12] MEDS: LACTATED RINGERS SOLUTION 1,000 ML/1,000 ML INFUS.BAG IV SCH (11:58)
--- NOTE | 2019-03-12 12:28 | CONSULT ---
Admitting History and Physical - Primary Care Physician PCP: Wu Singletary - Admission History of Present Illness: Per EMR- The pt is a 88F w/ a history of previous CVA w/ minimal residual left sided weakness (ASA/Plavix), HLD, GERD who presents for evaluation of confusion last night which has since resolved, and nausea/vomiting this afternoon. Per the daughter, last night (1999) the patient was speaking about people who had who she couldn't name or didn't know, she was also not wanting to share her food with her aid who she though was trying to steal it. This AM those symptoms had resolved. While getting an arterial doppler the pt vomited once and thus presented to the ED Selected Entries 11/21/17 11/21/17 11/21/17 01:25 06:00 08:45 Lunch Temperature 98.3 F 98.1 F 98.1 F 11/21/17 11/21/17 11/21/17 11:21 16:03 22:00 Lunch 75% Temperature 98.4 F 98.9 F 99.0 F 11/22/17 11/22/17 11/22/17 01:52 05:55 10:00 Lunch Temperature 98.5 F 98.6 F 98 F Known to me from October 2017, at which time she was Aphasic but showed signif improvement during hospitalization. History Source: Medical Record Limitations to Obtaining History: Clinical Condition - Past Medical History [employer]: Yes: Syncope Cardiovascular: Yes: HTN, Hyperlipdemia Endocrine: Yes: Diabetes Mellitus (type 2 DM) - Smoking History Smoking history: Former smoker Have you smoked in the past 12 months: No If you are a former smoker, when did you quit?: 50 YRS AGO - Alcohol/Substance Use Hx Alcohol Use: No History of Substance Use: reports: None History - Admission Reason For Visit: DM HYPERTENSION HISTORY OF CEREBROVASCULAR ACCT - Diagnostics X-ray: Report Reviewed CT Scan: Report Reviewed MRI: Report Reviewed - General Mental Status: Awake and Alert, Able to Follow Commands, Forgetful, Intermittently Confused (per report) Attention: Intact Ability to Follow Directions: Excellent Head/Neck Control: WFL - Hearing Hearing: Normal Hearing: Normal Hearing Aide: No Speech Evaluation - Communication Primary Language: ICELANDIC Communication: Yes: Within Normal Limits Oral Expression Ability: Yes: No Impairment - Speech Production Able to Make Needs Known: Yes: WNL Intelligibility: Yes: WNL - Speech Characteristics Voice Loudness: Normal Voice Pitch: Yes: Normal Voice Phonatory-based Quality: Yes: Normal Speech Pattern: Normal Nasal Resonance: Normal Articulation: Yes: Precise Rate of Speech: Intact - Language/Auditory Comprehension Follows: Yes: 1 Stage Simple Commands - Language/Verbal Expression Aphasia: Yes: Anomia (mild?) Able to Communicate Wants and Needs: Yes: WNL - Swallow Evaluation/Bedside Assessment Current Nutritional Intake: NPO Oral Secretions: Yes: WFL Dentition: Yes: Adequate Facial Symmetry at Rest: Facial Droop Left (slight?) Facial Symmetry on Retraction: Symmetrical Facial Movement: Controlled Sensation: Normal Against Resistance Opening: Normal Against Resistance Closing: Normal Pucker Lips: Normal Smile: Normal Lingual Movement: Normal, Symmetric Lingual Speed of Movement: Normal Lingual Movement Strgth Against Opposition: Normal Lingual Movement Characteristics: Normal Laryngeal Elevation: WFL Laryngeal Movement: Able to Palpate Rate of Intake: WFL Bolus Size: WFL Labial Seal: WFL Chewing: WFL Oral Prep Time: WFL A-P Transit: WFL Pocketing: None Timing of Swallow: WFL Coughing/Throat Clear: No Change in Voice: No Recommendations - Speech Evaluation, Impression/Plan Impression: Verbal, appropriate for me, said to be forgetful, not fully oriented. Speech precise. Swallowing intact - Dysphagia Impressions/Plan Swallowing Skills: WF Dysphagia Impressions: No Impairment *Silent aspiration: cannot be R/O at bedside - Recommendations Diet Consistency: Regular Medication Administration: Whole with water Liquids: Thin Liquids
--- NOTE | 2019-03-12 12:52 | EKG ---
Test Reason : Blood Pressure : / mmHG Vent. Rate : 075 BPM Atrial Rate : 075 BPM P-R Int : 156 ms QRS Dur : 074 ms QT Int : 394 ms P-R-T Axes : 037 -09 046 degrees QTc Int : 439 ms NORMAL SINUS RHYTHM NONSPECIFIC ST AND T WAVE ABNORMALITY ABNORMAL ECG WHEN COMPARED WITH ECG OF 15-DEC-2017 00:57, NO SIGNIFICANT CHANGE WAS FOUND Confirmed by Ermias Matthew MD ([id number]) on 03/12/2019 12:52:08 PM Referred By: Confirmed By:Ermias Matthew MD
--- NOTE | 2019-03-12 15:52 | EKG ---
Test Reason : Blood Pressure : / mmHG Vent. Rate : 073 BPM Atrial Rate : 073 BPM P-R Int : 168 ms QRS Dur : 078 ms QT Int : 410 ms P-R-T Axes : 031 -16 026 degrees QTc Int : 451 ms NORMAL SINUS RHYTHM NONSPECIFIC ST AND T WAVE ABNORMALITY ABNORMAL ECG WHEN COMPARED WITH ECG OF 11-MAR-2019 14:39, NO SIGNIFICANT CHANGE WAS FOUND Confirmed by Jon Miguel ([id number]) on 03/12/2019 3:52:41 PM Referred By: Confirmed By:Jon Miguel
[2019-03-12] MEDS: ROSUVASTATIN CA 20 MG TABLET (FP) PO SCH (21:05)
[2019-03-12] MEDS: DONEPEZIL HCL 10 MG TABLET (FP) PO SCH (21:05)
[2019-03-12] MEDS: SENNOSIDES 8.6MG TABLET (FP) PO SCH (21:05)
[2019-03-12] MEDS ORDERED: LORazepam 2 MG/ML SDV VIAL IVPUSH ONE ×2 (23:00→23:06)
[2019-03-13] MEDS: INSULIN SLIDING SCALE (NOVOLOG) 1 VIAL SQ SCH ×3 (06:13→17:24)
--- NOTE | 2019-03-13 08:50 | PN ---
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 Pt had arterial dopplers performed today per her vascular management by Dr. Ring. During her ultrasound pt vomited NB/NB emesis and proceeded to continue vomiting. Pt's daughter brought her to the ER for further investigation. Pt's daughter notes that last night pt was acutely confused talking about "seeing people" and "to not eat the food." Pt had similar episode with her prior CVA. Currently pt feels at baseline, however she cannot remember last night and she felt previously weak during her vomiting episodes. Pt denied LINDO, lightheadedness, weakness, numbness , SOB, cough, CP, palpitations, abdominal pain, dysuria, polyuria. Currently, no neurologic complaints. Ct head with L frontal, L temporal, L occipital chronic infarcts. ADmitted and completed MRI brain which showed no acute changes and demonstrate chronic microvascular periventricular white matter disease. Patient denies any neurologic complaints,, contacted by daughter regarding the case and discussed with her in detail yesterday. Informed patient of results of MRI of the brain and she was reassured. Continues to have telemetry monitoring and no new symptoms or complaints at this time. Speech eval reviewed, patient having breakfast at bedside comfortably this morning. Active Medications Aspirin (Asa -) 81 mg PO DAILY [facility] Last Admin: 03/12/19 09:55 Dose: 81 mg Clopidogrel Bisulfate (Plavix -) 75 mg PO DAILY [facility] Last Admin: 03/12/19 09:55 Dose: 75 mg Donepezil HCl (Aricept -) 10 mg PO HS [facility] Last Admin: 03/12/19 21:05 Dose: 10 mg Enoxaparin Sodium (Lovenox -) 30 mg SQ DAILY [facility] Last Admin: 03/12/19 09:55 Dose: 30 mg Lactated Ringer's (Lactated Ringers Solution) 1,000 ml in 1,000 mls @ 50 mls/ hr IV ASDIR [facility] Last Admin: 03/12/19 11:58 Dose: 50 mls/hr Insulin Aspart (Novolog Vial Sliding Scale -) 1 vial SQ Q6H [facility]; Protocol Last Admin: 03/13/19 06:13 Dose: 2 units Ranitidine HCl (Zantac -) 150 mg PO BID [facility] Last Admin: 03/12/19 21:05 Dose: 150 mg Rosuvastatin Calcium (Crestor -) 20 mg PO [facility] Last Admin: 03/12/19 21:05 Dose: 20 mg Senna (Senna -) 1 tab PO HS [facility] Last Admin: 03/12/19 21:05 Dose: 1 tab PHYSICAL EXAMINATION Vital Signs Period Temp Pulse Resp BP Sys/Mcgraw Pulse Ox Last 24 Hr 98.2 F-99.4 F 61-94 16-24 121-156/56-82 97-98 GENERAL: Awake, alert, and fully oriented, in no acute distress. HEAD: Normal with no signs of trauma. EYES: Pupils equal, round and reactive to light, extraocular movements intact, sclera anicteric, conjunctiva clear. No lid lag. EARS, NOSE, THROAT: Ears normal, nares patent, oropharynx clear without exudates. Moist mucous membranes. NECK: No JVD, no carotid bruit LUNGS:CTA bilaterally. No wheezes, and no crackles. No accessory muscle use. HEART: RRR, normal S1 and S2 without murmur ABDOMEN: Soft, NT/ND, normoactive bowel sounds, no guarding, EXTREMITIES: 2+ DP pulse R, 1+ DP pulse L, slightly cool, cap refill <2sec, No calf tenderness. No peripheral edema. NEUROLOGICAL: L facial palsy, no dysarthria or aphasia, rest of CN's intact. Strength 5-/5 LUE, 5/5 RUE, 5/5 b/l lower ext. Sensation intact throughout. Normal speech. Gait not observed. No dysmetria PSYCHIATRIC: Cooperative. Good eye contact. Appropriate mood and affect. SKIN: Warm, dry, no rashes or lesions noted, normal capillary refill. CBCD WBC 6.7 K/mm3 (4.0-10.0) 03/12/19 05:55 RBC 4.03 M/mm3 (3.60-5.2) 03/12/19 05:55 Hgb 12.1 GM/dL (10.7-15.3) 03/12/19 05:55 Hct 37.2 % (32.4-45.2) 03/12/19 05:55 MCV 92.3 fl (80-96) 03/12/19 05:55 MCHC 32.7 g/dl (32.0-36.0) 03/12/19 05:55 RDW 13.1 % (11.6-15.6) 03/12/19 05:55 Plt Count 192 K/MM3 (134-434) 03/12/19 05:55 MPV 10.4 fl (7.5-11.1) 03/12/19 05:55 CMP Sodium 140 mmol/L (136-145) 03/12/19 06:20 Potassium 4.3 mmol/L (3.5-5.1) 03/12/19 06:20 Chloride 104 mmol/L (98-107) 03/12/19 06:20 Carbon Dioxide 30 mmol/L (21-32) 03/12/19 06:20 Anion Gap 6 MMOL/L (8-16) L 03/12/19 06:20 BUN 15.3 mg/dL (7-18) 03/12/19 06:20 Creatinine 1.0 mg/dL (0.55-1.3) 03/12/19 06:20 Random Glucose 118 mg/dL (74-106) H 03/12/19 06:20 Calcium 9.5 mg/dL (8.5-10.1) 03/12/19 06:20 Total Bilirubin 0.5 mg/dL (0.2-1) 03/11/19 15:30 AST 19 U/L (15-37) 03/11/19 15:30 ALT 24 U/L (13-61) 03/11/19 15:30 Alkaline Phosphatase 58 U/L (45-117) 03/11/19 15:30 Total Protein 8.0 g/dl (6.4-8.2) 03/11/19 15:30 Albumin 4.1 g/dl (3.4-5.0) 03/11/19 15:30 CARDIAC ENZYMES Creatine Kinase 142 U/L (26-192) 03/11/19 15:38 Troponin I < 0.02 ng/ml (0.00-0.05) 03/11/19 15:38 ASSESSMENT/PLAN: 88yo F with h/o 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 Pt had arterial dopplers performed today per her vascular management by Dr. Ring. During her ultrasound pt vomited NB/NB emesis and proceeded to continue vomiting. Pt's daughter brought her to the ER for further investigation. Pt's daughter notes that last night pt was acutely confused talking about "seeing people" and "to not eat the food." Pt had similar episode with her prior CVA. Currently pt feels at baseline, however she cannot remember last night and she felt previously weak during her vomiting episodes. Pt denied LINDO, lightheadedness, weakness, numbness , SOB, cough, CP, palpitations, abdominal pain, dysuria, polyuria. Ct head with L frontal, L temporal, L occipital chronic infarcts. ADmitted and completed MRI brain which showed no acute infarct. Continue Statin, LDL at 67. Continue ASA, Plavix combination. Medication compliance. Monitor BP, maintain < 140/90. Monitor glucose, maintain euglycemic range. Can continue Aricept, DVT ppx. Continue medical optimization and management. Defer to primary regarding dispo and discharge. Does not need to be on higher dose of statin as LDL is 67. Does not require modification of home antiplatelet regiment. Discussed with daughter on phone in detail yesterday. Speech and swallow eval reviewed, neurologically stable at this time.
--- NOTE | 2019-03-13 09:05 | PN ---
Progress Note, Physician History of Present Illness: 88 yo F with a past medical history significant for CVA 10/2017, HTN, DM, mild dementia - Current Medication List Current Medications: Active Medications Aspirin (Asa -) 81 mg PO DAILY [facility] Last Admin: 03/12/19 09:55 Dose: 81 mg Clopidogrel Bisulfate (Plavix -) 75 mg PO DAILY [facility] Last Admin: 03/12/19 09:55 Dose: 75 mg Donepezil HCl (Aricept -) 10 mg PO [facility] Last Admin: 03/12/19 21:05 Dose: 10 mg Enoxaparin Sodium (Lovenox -) 30 mg SQ DAILY [facility] Last Admin: 03/12/19 09:55 Dose: 30 mg Lactated Ringer's (Lactated Ringers Solution) 1,000 ml in 1,000 mls @ 50 mls/ hr IV ASDIR [facility] Last Admin: 03/12/19 11:58 Dose: 50 mls/hr Insulin Aspart (Novolog Vial Sliding Scale -) 1 vial SQ Q6H [facility]; Protocol Last Admin: 03/13/19 06:13 Dose: 2 units Ranitidine HCl (Zantac -) 150 mg PO BID [facility] Last Admin: 03/12/19 21:05 Dose: 150 mg Rosuvastatin Calcium (Crestor -) 20 mg PO [facility] Last Admin: 03/12/19 21:05 Dose: 20 mg Senna (Senna -) 1 tab PO [facility] Last Admin: 03/12/19 21:05 Dose: 1 tab - Objective Vital Signs: Vital Signs Temperature 98.4 F 03/13/19 06:00 Pulse Rate 70 03/13/19 06:00 Respiratory Rate 18 03/13/19 06:00 Blood Pressure 138/60 03/13/19 06:00 O2 Sat by Pulse Oximetry (%) 98 03/12/19 21:00 Cardiovascular: Yes: Regular Rate and Rhythm Respiratory: Yes: Regular, CTA Bilaterally Gastrointestinal: Yes: Normal Bowel Sounds, Soft Neurological: Yes: Alert, Confusion, Weakness Labs: CBC, BMP 03/12/19 05:55 03/12/19 06:20 Problem List - Problems (1) Altered mental status Assessment/Plan: PT STILL CONFUSED VERIFY BASELINE WITH FAMILY PT PENDING UA/UC ANC CXR PENDING EVALUATE HOME SITUATION--DC PLANNING Code(s): R41.82 - ALTERED MENTAL STATUS, UNSPECIFIED Qualifiers: Altered mental status type: unspecified Qualified Code(s): R41.82 - Altered mental status, unspecified (2) Diabetes mellitus Assessment/Plan: [facility] Code(s): E11.9 - TYPE 2 DIABETES MELLITUS WITHOUT COMPLICATIONS Qualifiers: Diabetes mellitus type: other specified (including LUKAS) Diabetes mellitus long-term insulin use: unspecified long-term insulin use status Diabetes mellitus complication status: with other specified complication Qualified Code (s): E13.69 - Other specified diabetes mellitus with other specified complication (3) History of stroke Assessment/Plan: ON ASA/STATIN AND BB Code(s): Z86.73 - PRSNL HX OF TIA (TIA), AND CEREB INFRC W/O RESID DEFICITS (4) Vomiting Assessment/Plan: RESOLVED OBSERVE ON MEDS Code(s): R11.10 - VOMITING, UNSPECIFIED Qualifiers: Vomiting type: unspecified Vomiting Intractability: non-intractable Nausea presence: unspecified Qualified Code(s): R11.10 - Vomiting, unspecified
[2019-03-13] MEDS: ASPIRIN 81 MG CHEWABLE TABLETS PO SCH (09:52)
[2019-03-13] MEDS: RANITIDINE HCL 150 MG TABLET (FP) PO SCH ×2 (09:52→22:11)
[2019-03-13] MEDS: CLOPIDOGREL BISULFATE 75 MG TABLET (FP) PO SCH (09:52)
[2019-03-13] MEDS: ENOXAPARIN NA (PORCINE) 30 MG/0.3 ML DISP.SYRIN SQ SCH (09:52)
[2019-03-13] MEDS: LACTATED RINGERS SOLUTION 1,000 ML/1,000 ML INFUS.BAG IV SCH (09:56)
--- NOTE | 2019-03-13 13:49 | CONSULT ---
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 Neurology was consulted, who ordered MRI brain which showed no acute pathology but with chronic prior infarcts (L posterior temporal lobe, occipital lobe, anterior L frontal lobe). Vomiting resolved and mental status improved. Infectious work-up is in progress, with 03/12/19 WBC WNL. She has not yet been seen by PT. Physiatry is being consulted for further recommendations. 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) Home Medications - Allergies Allergies/Adverse Reactions: Allergies Allergy/AdvReac Type Severity Reaction Status Date / Time No Known Allergies Allergy Verified 03/11/19 14:38 - Home Medications Home Medications: Ambulatory Orders Aspirin [ASA -] 81 mg PO DAILY 03/15/16 Multivitamin [Poly-Vitamin] 1 tab PO DAILY 03/15/16 Solifenacin Succinate [Vesicare -] 10 mg PO DAILY 03/15/16 Vitamin B Complex 1 each PO DAILY 03/15/16 Rosuvastatin [Crestor -] 10 mg PO HS tablet 11/21/17 Sennosides [Senna -] 1 tab PO HS tablet 11/21/17 Acetaminophen 325 mg PO QID PRN 12/15/17 Brad/D3/Mag11/Zinc/Shop Router/Gurdeep/Bor [Caltrate 600+D Plus Tablet] 1 each PO BID Clopidogrel Bisulfate [Plavix] 75 mg PO DAILY 12/15/17 Docusate Sodium [Move It Along] 300 mg PO HS 12/15/17 Famotidine [Pepcid] 20 mg PO BID 12/15/17 Lytes/Yerba Nuha [Mouthkote Solution -] 1 applic MM TID 12/15/17 metFORMIN HCL [Glucophage -] 500 mg PO BID 12/15/17 Insulin Sliding Scale [Novolog Vial Sliding Scale -] 1 vial SQ ACHS units 12/18 Donepezil HCl [Aricept] 10 mg PO DAILY 03/11/19 Review of Systems Findings/Remarks: Denies fevers, chills, changes in vision/ hearing/ mood, CP, SOB, abdominal pain , nausea, vomiting, constipation, diarrhea, dysuria, numbness/ paresthesias BUE / BLE, muscle/ joint pain. Physical Exam Vital Signs: Vital Signs Temperature 98.4 F 03/13/19 06:00 Pulse Rate 70 03/13/19 06:00 Respiratory Rate 18 03/13/19 06:00 Blood Pressure 138/60 03/13/19 06:00 O2 Sat by Pulse Oximetry (%) 99 03/13/19 09:00 Musculoskeletal: Yes: Other (General: calm elderly HF sitting in chair NAD, awake and alert not oriented to time or place; B shoulder flexion to 120 degrees , 5-/5 BUE/ BLE; Pinprick Intact BUE/ BLE; no BLE pitting edema or B calf tenderness; unable to stand/ walk with pt 2/2 multiple lines and Hall vest) Labs: CBC, BMP 03/12/19 05:55 03/12/19 06:20 Imaging - Results MRI: Report Reviewed (as per HPI) Assessment/Plan Impression: 1) Deficits mobility/ ADLs 2) Gait abnormality 3) Confusion/ AMS, ongoing 4) Vomiting, resolved 5) hx L posterior temporal lobe/ occipital lobe/ anterior L frontal lobe CVA 2017 6) hx HTN, HLD 7) PAD 8) DMT2 9) Overweight 10) Up to date pneumovax, no documented flu shot Recommendations: 1) PT for stretching strengthening ROM endurance and functional mobility 2) Falls, safety precautions 3) Cardiac, diabetic precautions 4) DVT ppx: Lovenox 5) Denies constipation on current bowel regimen 6) Nutrition consult for overweight 7) Continue plan per primary team 8) Discharge planning: per CM notes, dtr prefers to take pt home where she has 24 hour x7 day [employer]. If [employer] set up, she will likely be able to return home with services Thank you for this referral.
--- NOTE | 2019-03-13 15:54 | PN ---
Progress Note, [employer] - Note Progress Note: Selected Entries 03/13/19 03/13/19 03/13/19 02:00 06:00 09:55 Breakfast 75% Lunch Temperature 98.2 F 98.4 F 03/13/19 03/13/19 14:00 15:36 Breakfast Lunch 75% Temperature 98.6 F Laboratory Tests 03/12/19 05:55 WBC 6.7 Tolerating diet. Verbal/confused
[2019-03-13] MEDS: DONEPEZIL HCL 10 MG TABLET (FP) PO SCH (22:11)
[2019-03-13] MEDS: SENNOSIDES 8.6MG TABLET (FP) PO SCH (22:11)
[2019-03-13] MEDS: ROSUVASTATIN CA 20 MG TABLET (FP) PO SCH (22:12)
[2019-03-14] MEDS: INSULIN SLIDING SCALE (NOVOLOG) 1 VIAL SQ SCH ×4 (00:10→17:17)
--- NOTE | 2019-03-14 08:01 | PN ---
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 Pt had arterial dopplers performed today per her vascular management by Dr. Ring. During her ultrasound pt vomited NB/NB emesis and proceeded to continue vomiting. Pt's daughter brought her to the ER for further investigation. Pt's daughter notes that last night pt was acutely confused talking about "seeing people" and "to not eat the food." Pt had similar episode with her prior CVA. Currently pt feels at baseline, however she cannot remember last night and she felt previously weak during her vomiting episodes. Pt denied LINDO, lightheadedness, weakness, numbness , SOB, cough, CP, palpitations, abdominal pain, dysuria, polyuria. Currently, no neurologic complaints. Ct head with L frontal, L temporal, L occipital chronic infarcts. ADmitted and completed MRI brain which showed no acute changes and demonstrate chronic microvascular periventricular white matter disease. Patient denies any neurologic complaints. Continues to have telemetry monitoring and no new symptoms or complaints at this time. Notes reviewed. Active Medications Aspirin (Asa -) 81 mg PO DAILY [facility] Last Admin: 03/12/19 09:55 Dose: 81 mg Clopidogrel Bisulfate (Plavix -) 75 mg PO DAILY [facility] Last Admin: 03/12/19 09:55 Dose: 75 mg Donepezil HCl (Aricept -) 10 mg PO [facility] Last Admin: 03/12/19 21:05 Dose: 10 mg Enoxaparin Sodium (Lovenox -) 30 mg SQ DAILY [facility] Last Admin: 03/12/19 09:55 Dose: 30 mg Lactated Ringer's (Lactated Ringers Solution) 1,000 ml in 1,000 mls @ 50 mls/ hr IV ASDIR [facility] Last Admin: 03/12/19 11:58 Dose: 50 mls/hr Insulin Aspart (Novolog Vial Sliding Scale -) 1 vial SQ Q6H [facility]; Protocol Last Admin: 03/13/19 06:13 Dose: 2 units Ranitidine HCl (Zantac -) 150 mg PO BID [facility] [place] Last Admin: 03/12/19 21:05 Dose: 150 mg Rosuvastatin Calcium (Crestor -) 20 mg PO HS [facility] Last Admin: 03/12/19 21:05 Dose: 20 mg Senna (Senna -) 1 tab PO HS [facility] Last Admin: 03/12/19 21:05 Dose: 1 tab PHYSICAL EXAMINATION Vital Signs Period Temp Pulse Resp BP Sys/Mcgraw Pulse Ox Last 24 Hr 98.2 F-99.4 F 61-94 16-24 121-156/56-82 97-98 GENERAL: Awake, alert, and fully oriented, in no acute distress. HEAD: Normal with no signs of trauma. EYES: Pupils equal, round and reactive to light, extraocular movements intact, sclera anicteric, conjunctiva clear. No lid lag. EARS, NOSE, THROAT: Ears normal, nares patent, oropharynx clear without exudates. Moist mucous membranes. NECK: No JVD, no carotid bruit LUNGS:CTA bilaterally. No wheezes, and no crackles. No accessory muscle use. HEART: RRR, normal S1 and S2 without murmur ABDOMEN: Soft, NT/ND, normoactive bowel sounds, no guarding, EXTREMITIES: 2+ DP pulse R, 1+ DP pulse L, slightly cool, cap refill <2sec, No calf tenderness. No peripheral edema. NEUROLOGICAL: L facial palsy, no dysarthria or aphasia, rest of CN's intact. Strength 5-/5 LUE, 5/5 RUE, 5/5 b/l lower ext. Sensation intact throughout. Normal speech. Gait not observed. No dysmetria PSYCHIATRIC: Cooperative. Good eye contact. Appropriate mood and affect. SKIN: Warm, dry, no rashes or lesions noted, normal capillary refill. CBCD WBC 6.7 K/mm3 (4.0-10.0) 03/12/19 05:55 RBC 4.03 M/mm3 (3.60-5.2) 03/12/19 05:55 Hgb 12.1 GM/dL (10.7-15.3) 03/12/19 05:55 Hct 37.2 % (32.4-45.2) 03/12/19 05:55 MCV 92.3 fl (80-96) 03/12/19 05:55 MCHC 32.7 g/dl (32.0-36.0) 03/12/19 05:55 RDW 13.1 % (11.6-15.6) 03/12/19 05:55 Plt Count 192 K/MM3 (134-434) 03/12/19 05:55 MPV 10.4 fl (7.5-11.1) 03/12/19 05:55 CMP Sodium 140 mmol/L (136-145) 03/12/19 06:20 Potassium 4.3 mmol/L (3.5-5.1) 03/12/19 06:20 Chloride 104 mmol/L (98-107) 03/12/19 06:20 Carbon Dioxide 30 mmol/L (21-32) 03/12/19 06:20 Anion Gap 6 MMOL/L (8-16) L 03/12/19 06:20 BUN 15.3 mg/dL (7-18) 03/12/19 06:20 Creatinine 1.0 mg/dL (0.55-1.3) 03/12/19 06:20 Random Glucose 118 mg/dL (74-106) H 03/12/19 06:20 Calcium 9.5 mg/dL (8.5-10.1) 03/12/19 06:20 Total Bilirubin 0.5 mg/dL (0.2-1) 03/11/19 15:30 AST 19 U/L (15-37) 03/11/19 15:30 ALT 24 U/L (13-61) 03/11/19 15:30 Alkaline Phosphatase 58 U/L (45-117) 03/11/19 15:30 Total Protein 8.0 g/dl (6.4-8.2) 03/11/19 15:30 Albumin 4.1 g/dl (3.4-5.0) 03/11/19 15:30 CARDIAC ENZYMES Creatine Kinase 142 U/L (26-192) 03/11/19 15:38 Troponin I < 0.02 ng/ml (0.00-0.05) 03/11/19 15:38 ASSESSMENT/PLAN: 88yo F with h/o 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 Pt had arterial dopplers performed today per her vascular management by Dr. Ring. During her ultrasound pt vomited NB/NB emesis and proceeded to continue vomiting. Pt's daughter brought her to the ER for further investigation. Pt's daughter notes that last night pt was acutely confused talking about "seeing people" and "to not eat the food." Pt had similar episode with her prior CVA. Currently pt feels at baseline, however she cannot remember last night and she felt previously weak during her vomiting episodes. Pt denied LINDO, lightheadedness, weakness, numbness , SOB, cough, CP, palpitations, abdominal pain, dysuria, polyuria. Ct head with L frontal, L temporal, L occipital chronic infarcts. ADmitted and completed MRI brain which showed no acute infarct. Continue Statin, LDL at 67. Continue ASA, Plavix combination. Medication compliance. Monitor BP, maintain < 140/90. Monitor glucose, maintain euglycemic range. Can continue Aricept, DVT ppx. Continue medical optimization and management. Does not need to be on higher dose of statin as LDL is 67. Does not require modification of home antiplatelet regiment. Discussed with daughter on phone previously. Speech and swallow eval reviewed, neurologically stable at this time. Dispo per primary.
[2019-03-14 09:18] LABS: HYALINE CASTS 10 /lpf (0-8); PH,URINE 5.5 (5.0-8.0); URINE APPEARANCE CLEAR; URINE BACTERIA 1.5 /hpf (NEGATIVE); URINE BILIRUBIN NEGATIVE (NEGATIVE); URINE COLOR YELLOW; URINE GLUCOSE (UA) NEGATIVE (NEGATIVE); URINE KETONE NEGATIVE (NEGATIVE); URINE LEUK ESTERASE TRACE (NEGATIVE); URINE NITRITE NEGATIVE (NEGATIVE); URINE PROTEIN NEGATIVE (NEGATIVE); URINE RBC 2 /hpf (0-4); URINE UROBILINOGEN 0.2 mg/dL (0.2-1.0); URINE WBC 2 /hpf (0-5)
--- NOTE | 2019-03-14 09:46 | DS ---
Physical Examination Vital Signs: Vital Signs Temperature 98.1 F 03/14/19 06:00 Pulse Rate 63 03/14/19 06:00 Respiratory Rate 12 03/14/19 06:00 Blood Pressure 143/61 03/14/19 06:00 O2 Sat by Pulse Oximetry (%) 99 03/13/19 20:04 Findings/Remarks: PATIENT AWAKE, CONFUSED BASELINE DEMENTIA Constitutional: Yes: No Distress Cardiovascular: Yes: Regular Rate and Rhythm Respiratory: Yes: WNL Gastrointestinal: Yes: WNL Renal/: Yes: Incontinence Musculoskeletal: Yes: Muscle Weakness Edema: No Integumentary: Yes: Other Wound/Incision: Yes: Other Neurological: Yes: Confusion, Pre-Existing Deficit ...Motor Strength: LLE, RLE Psychiatric: Yes: Other Labs: CBC, BMP 03/12/19 05:55 03/12/19 06:20 Discharge Summary Problems reviewed: Yes Reason For Visit: DM HYPERTENSION HISTORY OF CEREBROVASCULAR ACCT Current Active Problems Diabetes mellitus (Acute) History of stroke (Acute) Vomiting (Acute) Procedures: Principal: CT AND MRI OF BRAIN Other Procedures: LABS XRAYS Hospital Course: ADMITTED TO OBSERVATION AND MONITORED FOR CVA PRECAUTIONS PATIENT HAS BASELINE DEMENTIA PRITO TO ADMISSION AND MRI DID NOT SHOW ACUTE CVA. Health Concerns: DEMENTIA/HOME CARE ESSENTIAL Plan of Treatment: DISCHARGE TO EITHER SNF OR HOME WITH 24HR AID Goals: SEE YOUR DOCTOR IN 1 WEEK OUTPATIENT IF NOT IN SNF Condition: Improved - Instructions Diet, Activity, Other Instructions: DIABETIC LOW SODIUM SOFT WITH THIN LIQUIDS AND GRAVY/SAUCE ON MEALS SEE YOUR PMD IN 1 WEEK OR AT SNF Referrals: Terri Chavez MD [Primary Care Provider] - Disposition: [facility] - Home Medications Comprehensive Discharge Medication List: Ambulatory Orders Aspirin [ASA -] 81 mg PO DAILY 03/15/16 Multivitamin [Poly-Vitamin] 1 tab PO DAILY 03/15/16 Solifenacin Succinate [Vesicare -] 10 mg PO DAILY 03/15/16 Vitamin B Complex 1 each PO DAILY 03/15/16 Sennosides [Senna -] 1 tab PO HS tablet 11/21/17 Acetaminophen 325 mg PO QID PRN 12/15/17 Brad/D3/Mag11/Zinc/Issue Clerk/Gurdeep/Bor [Caltrate 600+D Plus Tablet] 1 each PO BID Clopidogrel Bisulfate [Plavix] 75 mg PO DAILY 12/15/17 Docusate Sodium [Move It Along] 300 mg PO HS 12/15/17 Famotidine [Pepcid] 20 mg PO BID 12/15/17 Lytes/Yerba Nuha [Mouthkote Solution -] 1 applic MM TID 12/15/17 metFORMIN HCL [Glucophage -] 500 mg PO BID 12/15/17 Insulin Sliding Scale [Novolog Vial Sliding Scale -] 1 vial SQ ACHS units 12/18 Donepezil HCl [Aricept] 10 mg PO DAILY 03/11/19 Donepezil HCl [Aricept -] 10 mg PO HS tablet 03/14/19 Rosuvastatin [Crestor -] 20 mg PO HS #30 tablet 03/14/19
[2019-03-14] MEDS: ENOXAPARIN NA (PORCINE) 30 MG/0.3 ML DISP.SYRIN SQ SCH (10:02)
[2019-03-14] MEDS: ASPIRIN 81 MG CHEWABLE TABLETS PO SCH (10:02)
[2019-03-14] MEDS: CLOPIDOGREL BISULFATE 75 MG TABLET (FP) PO SCH (10:02)
[2019-03-14] MEDS: RANITIDINE HCL 150 MG TABLET (FP) PO SCH ×2 (10:03→21:49)
[2019-03-14] MEDS: SENNOSIDES 8.6MG TABLET (FP) PO SCH (21:49)
[2019-03-14] MEDS: DONEPEZIL HCL 10 MG TABLET (FP) PO SCH (21:49)
[2019-03-14] MEDS: ROSUVASTATIN CA 20 MG TABLET (FP) PO SCH (21:49)
[2019-03-15] MEDS: INSULIN SLIDING SCALE (NOVOLOG) 1 VIAL SQ SCH ×4 (00:24→16:56)
[2019-03-15] MEDS: ENOXAPARIN NA (PORCINE) 30 MG/0.3 ML DISP.SYRIN SQ SCH (09:11)
[2019-03-15] MEDS: ASPIRIN 81 MG CHEWABLE TABLETS PO SCH (09:11)
[2019-03-15] MEDS: CLOPIDOGREL BISULFATE 75 MG TABLET (FP) PO SCH (09:11)
--- NOTE | 2019-03-15 09:13 | PN ---
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 Pt had arterial dopplers performed today per her vascular management by Dr. Ring. During her ultrasound pt vomited NB/NB emesis and proceeded to continue vomiting. Pt's daughter brought her to the ER for further investigation. Pt's daughter notes that last night pt was acutely confused talking about "seeing people" and "to not eat the food." Pt had similar episode with her prior CVA. Currently pt feels at baseline, however she cannot remember last night and she felt previously weak during her vomiting episodes. Pt denied LINDO, lightheadedness, weakness, numbness , SOB, cough, CP, palpitations, abdominal pain, dysuria, polyuria. Currently, no neurologic complaints. Ct head with L frontal, L temporal, L occipital chronic infarcts. ADmitted and completed MRI brain which showed no acute changes and demonstrate chronic microvascular periventricular white matter disease. Patient remains cooperative and comfortable, no significant change in mental status and no new deficits. Remains very pleasant during the encounter and likely at or near baseline Active Medications Aspirin (Asa -) 81 mg PO DAILY [facility] Last Admin: 03/15/19 09:11 Dose: 81 mg Clopidogrel Bisulfate (Plavix -) 75 mg PO DAILY [facility] Last Admin: 03/15/19 09:11 Dose: 75 mg Donepezil HCl (Aricept -) 10 mg PO [facility] Last Admin: 03/14/19 21:49 Dose: 10 mg Enoxaparin Sodium (Lovenox -) 30 mg SQ DAILY [facility] Last Admin: 03/15/19 09:11 Dose: 30 mg Famotidine (Pepcid -) 20 mg PO BID [facility] Insulin Aspart (Novolog Vial Sliding Scale -) 1 vial SQ Q6H [facility]; Protocol Last Admin: 03/15/19 05:15 Dose: Not Given Rosuvastatin Calcium (Crestor -) 20 mg PO HS [facility] Last Admin: 03/14/19 21:49 Dose: 20 mg Senna (Senna -) 1 tab PO [facility] Last Admin: 03/14/19 21:49 Dose: 1 tab PHYSICAL EXAMINATION Vital Signs Period Temp Pulse Resp BP Sys/Mcgraw Pulse Ox Last 24 Hr 98.1 F-98.7 F 65-78 13-16 123-141/60-83 99 GENERAL: Awake, alert, and fully oriented, in no acute distress. HEAD: Normal with no signs of trauma. EYES: Pupils equal, round and reactive to light, extraocular movements intact, sclera anicteric, conjunctiva clear. No lid lag. EARS, NOSE, THROAT: Ears normal, nares patent, oropharynx clear without exudates. Moist mucous membranes. NECK: No JVD, no carotid bruit LUNGS:CTA bilaterally. No wheezes, and no crackles. No accessory muscle use. HEART: RRR, normal S1 and S2 without murmur ABDOMEN: Soft, NT/ND, normoactive bowel sounds, no guarding, EXTREMITIES: 2+ DP pulse R, 1+ DP pulse L, slightly cool, cap refill <2sec, No calf tenderness. No peripheral edema. NEUROLOGICAL: L facial palsy, no dysarthria or aphasia, rest of CN's intact. Strength 5-/5 LUE, 5/5 RUE, 5/5 b/l lower ext. Sensation intact throughout. Normal speech. Gait not observed. No dysmetria PSYCHIATRIC: Cooperative. Good eye contact. Appropriate mood and affect. SKIN: Warm, dry, no rashes or lesions noted, normal capillary refill. CBCD WBC 6.7 K/mm3 (4.0-10.0) 03/12/19 05:55 RBC 4.03 M/mm3 (3.60-5.2) 03/12/19 05:55 Hgb 12.1 GM/dL (10.7-15.3) 03/12/19 05:55 Hct 37.2 % (32.4-45.2) 03/12/19 05:55 MCV 92.3 fl (80-96) 03/12/19 05:55 MCHC 32.7 g/dl (32.0-36.0) 03/12/19 05:55 RDW 13.1 % (11.6-15.6) 03/12/19 05:55 Plt Count 192 K/MM3 (134-434) 03/12/19 05:55 MPV 10.4 fl (7.5-11.1) 03/12/19 05:55 CMP Sodium 140 mmol/L (136-145) 03/12/19 06:20 Potassium 4.3 mmol/L (3.5-5.1) 03/12/19 06:20 Chloride 104 mmol/L (98-107) 03/12/19 06:20 Carbon Dioxide 30 mmol/L (21-32) 03/12/19 06:20 Anion Gap 6 MMOL/L (8-16) L 03/12/19 06:20 BUN 15.3 mg/dL (7-18) 03/12/19 06:20 Creatinine 1.0 mg/dL (0.55-1.3) 03/12/19 06:20 Random Glucose 118 mg/dL (74-106) H 03/12/19 06:20 Calcium 9.5 mg/dL (8.5-10.1) 03/12/19 06:20 Total Bilirubin 0.5 mg/dL (0.2-1) 03/11/19 15:30 AST 19 U/L (15-37) 03/11/19 15:30 ALT 24 U/L (13-61) 03/11/19 15:30 Alkaline Phosphatase 58 U/L (45-117) 03/11/19 15:30 Total Protein 8.0 g/dl (6.4-8.2) 03/11/19 15:30 Albumin 4.1 g/dl (3.4-5.0) 03/11/19 15:30 CARDIAC ENZYMES Creatine Kinase 142 U/L (26-192) 03/11/19 15:38 Troponin I < 0.02 ng/ml (0.00-0.05) 03/11/19 15:38 ASSESSMENT/PLAN: 88yo F with h/o 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 Pt had arterial dopplers performed today per her vascular management by Dr. Ring. During her ultrasound pt vomited NB/NB emesis and proceeded to continue vomiting. Pt's daughter brought her to the ER for further investigation. Pt's daughter notes that last night pt was acutely confused talking about "seeing people" and "to not eat the food." Pt had similar episode with her prior CVA. Currently pt feels at baseline, however she cannot remember last night and she felt previously weak during her vomiting episodes. Pt denied LINDO, lightheadedness, weakness, numbness , SOB, cough, CP, palpitations, abdominal pain, dysuria, polyuria. Ct head with L frontal, L temporal, L occipital chronic infarcts. ADmitted and completed MRI brain which showed no acute infarct. Continue Statin, LDL at 67. Continue ASA, Plavix combination. Medication compliance. Monitor BP, maintain < 140/90. Monitor glucose, maintain euglycemic range. Can continue Aricept, DVT ppx. Continue medical optimization and management. Does not need to be on higher dose of statin as LDL is 67. Does not require modification of home antiplatelet regiment. Patient remains cooperative and comfortable, no significant change in mental status and no new deficits. Remains very pleasant during the encounter and likely at or near baseline. Discussed with daughter on phone previously. Dispo per primary.
--- NOTE | 2019-03-15 11:47 | PN ---
Progress Note, Physician Chief Complaint: patient complaining of hematuria and dysuria was about to go home went to bathroom now having hematuria - Current Medication List Current Medications: Active Medications Aspirin (Asa -) 81 mg PO DAILY [facility] Last Admin: 03/15/19 09:11 Dose: 81 mg Clopidogrel Bisulfate (Plavix -) 75 mg PO DAILY [facility] Last Admin: 03/15/19 09:11 Dose: 75 mg Donepezil HCl (Aricept -) 10 mg PO [facility] Last Admin: 03/14/19 21:49 Dose: 10 mg Famotidine (Pepcid -) 20 mg PO BID [facility] Ceftriaxone Sodium 1 gm/ (Dextrose) 50 mls @ 200 mls/hr IVPB DAILY [facility]; Protocol Insulin Aspart (Novolog Vial Sliding Scale -) 1 vial SQ Q6H [facility]; Protocol Last Admin: 03/15/19 11:33 Dose: 2 units Rosuvastatin Calcium (Crestor -) 20 mg PO [facility] Last Admin: 03/14/19 21:49 Dose: 20 mg Senna (Senna -) 1 tab PO [facility] Last Admin: 03/14/19 21:49 Dose: 1 tab - Objective Vital Signs: Vital Signs Temperature 98.7 F 03/15/19 06:00 Pulse Rate 67 03/15/19 06:00 Respiratory Rate 16 03/15/19 10:00 Blood Pressure 123/83 03/15/19 06:00 O2 Sat by Pulse Oximetry (%) 99 03/15/19 10:00 Constitutional: Yes: Calm Cardiovascular: Yes: Regular Rate and Rhythm, S1, S2 Respiratory: Yes: CTA Bilaterally Gastrointestinal: Yes: Normal Bowel Sounds, Soft Edema: No Neurological: Yes: Alert, Oriented Labs: CBC, BMP 03/12/19 05:55 03/12/19 06:20 Problem List - Problems (1) Hematuria Assessment/Plan: complains of dysuria r/o UTI stop lovenox scd for dvt ppx check cbc ua and urine culture start iv rocephin after colecting UA cancel discharge today Code(s): R31.9 - HEMATURIA, UNSPECIFIED
[2019-03-15] MEDS ORDERED: cefTRIAXone SODIUM 1 GM VIAL ONE (12:09)
[2019-03-15] MEDS ORDERED: DEXTROSE 5%-WATER - 50 ML IVPB ONE (12:09)
[2019-03-15] MEDS: CEFTRIAXONE 1 GM in DEXTROSE 5%-WATER - 50 ML IVPB SCH (12:10)
[2019-03-15] MEDS: FAMOTIDINE 20 MG TABLET PO SCH ×2 (12:11→21:09)
[2019-03-15 13:19] LABS: BASO % 0.7 % (0-2.0); EOS % 1.3 % (0-4.5); HEMATOCRIT 38.5 % (32.4-45.2); HEMOGLOBIN 12.9 GM/dL (10.7-15.3); MCH 30.7 pg (25.7-33.7); MCHC 33.5 g/dl (32.0-36.0); MEAN CELL VOLUME 91.7 fl (80-96); MEAN PLT VOLUME 10.5 fl (7.5-11.1); PLATELET COUNT 196 K/MM3 (134-434); RBC 4.19 M/mm3 (3.60-5.2); RDW 13.2 % (11.6-15.6); WHITE BLOOD COUNT 8.9 K/mm3 (4.0-10.0)
[2019-03-15] MEDS: DONEPEZIL HCL 10 MG TABLET (FP) PO SCH (21:09)
[2019-03-15] MEDS: SENNOSIDES 8.6MG TABLET (FP) PO SCH (21:10)
[2019-03-15] MEDS: ROSUVASTATIN CA 20 MG TABLET (FP) PO SCH (21:10)
[2019-03-16] MEDS: INSULIN SLIDING SCALE (NOVOLOG) 1 VIAL SQ SCH ×5 (00:59→22:45)
[2019-03-16 07:22] LABS: ALBUMIN 3.5 g/dl (3.4-5.0); BILIRUBIN,TOTAL 0.5 mg/dL (0.2-1); BLOOD UREA NITROGEN 18.8 mg/dL (7-18); POTASSIUM 4.1 mmol/L (3.5-5.1)
[2019-03-16] MEDS ORDERED: cefTRIAXone SODIUM 1 GM VIAL ONE (09:32)
[2019-03-16] MEDS ORDERED: DEXTROSE 5%-WATER - 50 ML IVPB ONE (09:32)
[2019-03-16] MEDS: CEFTRIAXONE 1 GM in DEXTROSE 5%-WATER - 50 ML IVPB SCH (09:55)
[2019-03-16] MEDS: CLOPIDOGREL BISULFATE 75 MG TABLET (FP) PO SCH (09:55)
[2019-03-16] MEDS: ASPIRIN 81 MG CHEWABLE TABLETS PO SCH (09:55)
[2019-03-16] MEDS: FAMOTIDINE 20 MG TABLET PO SCH ×2 (09:55→22:00)
--- NOTE | 2019-03-16 10:24 | DS ---
Physical Examination Vital Signs: Vital Signs Temperature 98.8 F 03/16/19 06:00 Pulse Rate 73 03/16/19 09:55 Respiratory Rate 22 H 03/16/19 09:55 Blood Pressure 175/65 H 03/16/19 09:55 O2 Sat by Pulse Oximetry (%) 99 03/16/19 09:00 Cardiovascular: Yes: Regular Rate and Rhythm Respiratory: Yes: Regular, CTA Bilaterally Gastrointestinal: Yes: Normal Bowel Sounds, Soft Neurological: Yes: Alert, Confusion Labs: CBC, BMP 03/15/19 13:06 03/16/19 05:42 Discharge Summary Problems reviewed: Yes Reason For Visit: DM HYPERTENSION HISTORY OF CEREBROVASCULAR ACCT Current Active Problems Diabetes mellitus (Acute) Hematuria (Acute) History of stroke (Acute) Vomiting (Acute) Hospital Course: ADMITTED TO OBSERVATION AND MONITORED FOR CVA PRECAUTIONS PATIENT HAS BASELINE DEMENTIA PRITO TO ADMISSION AND MRI DID NOT SHOW ACUTE CVA. - Problems (1) Altered mental status Assessment/Plan: PT STILL CONFUSED AT BASELINE UA/UC ANC CXR neg EVALUATE HOME SITUATION--DC PLANNING Code(s): R41.82 - ALTERED MENTAL STATUS, UNSPECIFIED Qualifiers: Altered mental status type: unspecified Qualified Code(s): R41.82 - Altered mental status, unspecified (2) Diabetes mellitus Assessment/Plan: BGM Code(s): E11.9 - TYPE 2 DIABETES MELLITUS WITHOUT COMPLICATIONS Qualifiers: Diabetes mellitus type: other specified (including LUKAS) Diabetes mellitus moth exterminator insulin use: unspecified fpc insulin use status Diabetes mellitus complication status: with other specified complication Qualified Code (s): E13.69 - Other specified diabetes mellitus with other specified complication (3) History of stroke Assessment/Plan: ON ASA/STATIN AND BB Code(s): Z86.73 - PRSNL HX OF TIA (TIA), AND CEREB INFRC W/O RESID DEFICITS (4) Vomiting Assessment/Plan: RESOLVED OBSERVE ON MEDS Code(s): R11.10 - VOMITING, UNSPECIFIED Qualifiers: Vomiting type: unspecified Vomiting Intractability: non-intractable Nausea presence: unspecified Qualified Code(s): R11.10 - Vomiting, unspecified Health Concerns: DEMENTIA/HOME CARE ESSENTIAL Plan of Treatment: DISCHARGE TO EITHER SNF OR HOME WITH 24HR AID Goals: SEE YOUR DOCTOR IN 1 WEEK OUTPATIENT IF NOT IN SNF Condition: Improved - Instructions Diet, Activity, Other Instructions: DIABETIC LOW SODIUM SOFT WITH THIN LIQUIDS AND GRAVY/SAUCE ON MEALS SEE YOUR PMD IN 1 WEEK OR AT SNF Referrals: Terri Chavez MD [Primary Care Provider] - Disposition: [facility] F[facility] - Home Medications Comprehensive Discharge Medication List: Ambulatory Orders Aspirin [ASA -] 81 mg PO DAILY 03/15/16 Multivitamin [Poly-Vitamin] 1 tab PO DAILY 03/15/16 Vitamin B Complex 1 each PO DAILY 03/15/16 Sennosides [Senna -] 1 tab PO HS tablet 11/21/17 Acetaminophen 325 mg PO QID PRN 12/15/17 Brad/D3/Mag11/Zinc/Litigation Specialist/Gurdeep/Bor [Caltrate 600+D Plus Tablet] 1 each PO BID Clopidogrel Bisulfate [Plavix] 75 mg PO DAILY 12/15/17 Docusate Sodium [Move It Along] 300 mg PO HS 12/15/17 Famotidine [Pepcid] 20 mg PO BID 12/15/17 Lytes/Yerba Nuha [Mouthkote Solution -] 1 applic MM TID 12/15/17 metFORMIN HCL [Glucophage -] 500 mg PO BID 12/15/17 Donepezil HCl [Aricept] 10 mg PO DAILY 03/11/19 Donepezil HCl [Aricept -] 10 mg PO HS tablet 03/14/19 Rosuvastatin [Crestor -] 20 mg PO HS #30 tablet 03/14/19 Valsartan [Diovan] 40 mg PO DAILY #30 tablet 03/16/19
[2019-03-16] MEDS: VALSARTAN 40 MG TABLET (FP) PO SCH (10:57)
[2019-03-16] MEDS: DONEPEZIL HCL 10 MG TABLET (FP) PO SCH (22:00)
[2019-03-16] MEDS ORDERED: PT OWN MED DRAWER 7, Y5N ONE (22:00)
[2019-03-16] MEDS: SENNOSIDES 8.6MG TABLET (FP) PO SCH (22:00)
[2019-03-16] MEDS: ROSUVASTATIN CA 20 MG TABLET (FP) PO SCH (22:01)
[2019-03-17] MEDS: INSULIN SLIDING SCALE (NOVOLOG) 1 VIAL SQ SCH ×2 (06:10→12:42)
[2019-03-17 09:09] VITALS: BP 140/52; PULSE 63; TEMP 98
--- NOTE | 2019-03-17 10:08 | DS ---
Physical Examination Vital Signs: Vital Signs Temperature 98 F 03/17/19 09:01 Pulse Rate 63 03/17/19 09:01 Respiratory Rate 18 03/17/19 09:01 Blood Pressure 140/52 L 03/17/19 09:01 O2 Sat by Pulse Oximetry (%) 99 03/16/19 22:00 Cardiovascular: Yes: Regular Rate and Rhythm Respiratory: Yes: Regular, CTA Bilaterally Gastrointestinal: Yes: Normal Bowel Sounds, Soft Neurological: Yes: Alert, Confusion Labs: CBC, BMP 03/15/19 13:06 03/16/19 05:42 Discharge Summary Problems reviewed: Yes Reason For Visit: DM HYPERTENSION HISTORY OF CEREBROVASCULAR ACCT Current Active Problems Diabetes mellitus (Acute) Hematuria (Acute) History of stroke (Acute) Vomiting (Acute) Hospital Course: ADMITTED TO OBSERVATION AND MONITORED FOR CVA PRECAUTIONS PATIENT HAS BASELINE DEMENTIA PRITO TO ADMISSION AND MRI DID NOT SHOW ACUTE CVA. 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 Diabetes mellitus complication status: with other specified complication Qualified Code (s): E13.69 - Other specified diabetes mellitus with other specified complication (3) History of stroke Assessment/Plan: ON ASA/STATIN AND BB Code(s): Z86.73 - PRSNL HX OF TIA (TIA), AND CEREB INFRC W/O RESID DEFICITS (4) Vomiting Assessment/Plan: RESOLVED OBSERVE ON MEDS Code(s): R11.10 - VOMITING, UNSPECIFIED Qualifiers: Vomiting type: unspecified Vomiting Intractability: non-intractable Nausea presence: unspecified Qualified Code(s): R11.10 - Vomiting, unspecified Health Concerns: DEMENTIA/HOME CARE ESSENTIAL Plan of Treatment: DISCHARGE TO EITHER SNF OR HOME WITH 24HR AID Goals: SEE YOUR DOCTOR IN 1 WEEK OUTPATIENT IF NOT IN SNF Condition: Improved - Instructions Diet, Activity, Other Instructions: DIABETIC LOW SODIUM SOFT WITH THIN LIQUIDS AND GRAVY/SAUCE ON MEALS SEE YOUR PMD IN 1 WEEK OR AT SNF Referrals: Terri Chavez MD [Primary Care Provider] - Disposition: LONGTERM FACILITY - Home Medications Comprehensive Discharge Medication List: Ambulatory Orders Aspirin [ASA -] 81 mg PO DAILY 03/15/16 Multivitamin [Poly-Vitamin] 1 tab PO DAILY 03/15/16 Vitamin B Complex 1 each PO DAILY 03/15/16 Sennosides [Senna -] 1 tab PO HS tablet 11/21/17 Acetaminophen 325 mg PO QID PRN 12/15/17 Brad/D3/Mag11/Zinc/Change Over/Gurdeep/Bor [Caltrate 600+D Plus Tablet] 1 each PO BID Clopidogrel Bisulfate [Plavix] 75 mg PO DAILY 12/15/17 Docusate Sodium [Move It Along] 300 mg PO HS 12/15/17 Famotidine [Pepcid] 20 mg PO BID 12/15/17 Lytes/Yerba Nuha [Mouthkote Solution -] 1 applic MM TID 12/15/17 metFORMIN HCL [Glucophage -] 500 mg PO BID 12/15/17 Donepezil HCl [Aricept] 10 mg PO DAILY 03/11/19 Donepezil HCl [Aricept -] 10 mg PO HS tablet 03/14/19 Rosuvastatin [Crestor -] 20 mg PO HS #30 tablet 03/14/19 Valsartan [Diovan] 40 mg PO DAILY #30 tablet 03/16/19
[2019-03-17] MEDS: ASPIRIN 81 MG CHEWABLE TABLETS PO SCH (10:41)
[2019-03-17] MEDS: FAMOTIDINE 20 MG TABLET PO SCH (10:41)
[2019-03-17] MEDS: VALSARTAN 40 MG TABLET (FP) PO SCH (10:41)
[2019-03-17] MEDS: CLOPIDOGREL BISULFATE 75 MG TABLET (FP) PO SCH (10:42)
[2019-03-17] MEDS ORDERED: PT OWN MED DRAWER 7, Y5N ONE (12:56)
[2019-03-17] MEDS ORDERED: CEFUROXIME AXETIL 250 MG TABLET PO SCH (13:00)
== END 2019-03-17 13:33 | disposition home or self-care (01) | DRG 884 ==
LOC: JER 14:27 → JERBED 18:00 → J2W 21:51 → OBSVTOIN 03-13 10:01
PROVIDERS: ADMIT Family Medicine; ATTEND Family Medicine
DX: F03.90 Unspecified dementia, unspecified severity, without behavioral disturbance, psychotic disturbance, mood disturbance, and anxiety (principal); I69.354 Hemiplegia and hemiparesis following cerebral infarction affecting left non-dominant side; R47.01 Aphasia; I10 Essential (primary) hypertension; E11.9 Type 2 diabetes mellitus without complications; E78.5 Hyperlipidemia, unspecified; K21.9 Gastro-esophageal reflux disease without esophagitis; E83.42 Hypomagnesemia; Z79.4 Long term (current) use of insulin; Z87.891 Personal history of nicotine dependence; R31.9 Hematuria, unspecified; R11.10 Vomiting, unspecified; R30.0 Dysuria
CPT/HCPCS: 36415; 70450-TC; 70551-TC; 71045-TC-FY; 80048; 80053; 80061; 81003; 82550; 82962; 83036; 83721; 83735; 84100; 84443; 84484; 85025; 85027; 87086; 87186; 93005; 93010; 97116-GP; 97161-GP; 99283-25; G0378

== ENCOUNTER 2020-01-19 13:18 | Emergency (ER) | payer OTHER ==
[2020-01-19 13:34] VITALS: BMI 24.9
--- NOTE | 2020-01-19 13:58 | PDOC ---
History of Present Illness - General Chief Complaint: Injury Stated Complaint: FALL Time Seen by Provider: 01/19/20 13:46 History Source: Patient, Care Provider Exam Limitations: Dementia - History of Present Illness Initial Comments: 01/19/20 15:25 HPI: This is an 89 y/o female with a PMH of alzheimers dementia, NIDDM, hx of TIA's 2 years ago BIBA after an unwitnesed fall on Plavix. Per the daughter, her mothers aid stepped out of the room to clear the dishes and when she came back two minutes later, saw the patient on the floor trying to get up on her own. She believes the patient was trying to slide sideways off her chair and on to the couch, which she often does with assistance. The patient fell on her right side, and the patient reports she remembers hitting her head. The patient and the daughter deny LOC. There is an abrasion above her right eye. The patient denies any current pain, headache, chest pain, SOB, abdominal pain, or pain in her extremities. The daughter says that the patients mental status is baseline. ADULT ROS Constitutional - Pt denies weakness, LOC HEENT: denies vision changes, blurry vision Respiratory: Denies cough, sob Cardiac: denies chest pain, palpitations, light headedness Abd/GI: denies abd pain, nausea : denies dysuria, frequency, discharge Musculskelatal - denies back pain, joint swelling skin - admits to bruising above right eye neurological: denies headache, numbness, focal weakness, tingling hematologic: denies anemia, easy bruising, easy bleeding PMH: Alzheimers dementia, NIDDM, TIA's Meds: See med list Allergies: KNDA ADULT Physical ExaM GENERAL: The patient is awake, alert. Nontoxic - in no acute distress. Patient is conversational. HEAD: Normocephalic. Contusion above right eye EYES: extraocular movements intact, PERRLA ENT: Normal voice, Moist mucous membranes. NECK: Normal range of motion, supple without lymphadenopathy, JVD, or masses. No tenderness to palpation along cervical spine LUNGS: Breath sounds equal, clear to auscultation bilaterally. No wheezes, no crackles, no rales. HEART: Regular rate and rhythm, normal S1 and S2 without murmur, rub or gallop. ABDOMEN: Soft, nontender, normoactive bowel sounds. No guarding, no rebound. No masses. EXTREMITIES: Normal range of motion, no edema. No tenderness to palpation in bilateral arms or legs. NEUROLOGICAL: No facial asymmetry, Normal speech, normal gait. SKIN: Warm, Dry, normal turgor, no rashes or lesions noted. MDM: This is an 89 y/o female with a PMH of alzheimers dementia, NIDDM, hx of TIA's 2 years ago BIBA after an unwitnesed fall on Plavix. - The aid observed her trying to get up and was only gone 2 minutes. Unlikely LOC - Per daughter, mother is at baseline and normally reports when she is feeling pain. - Patient is not complaining of any pain or tenderness to palpation except on contusion above her eye. Able to move all extremities. Strength and sensation intact in all extremities. - No focal neurologic deficits. Concern for ICH b/c of plavix- will CT head and neck 01/19/20 15:37 CT HEAD W/O CONTRAST: IMPRESSION: No evidence of acute intracranial pathology. CT Cervical Spine: IMPRESSION: Moderately severe degenerative arthritis with no fracture or acute pathology. Patient is stable and wants to go home. Ok to d/c with follow-up and return precautions Past History - Medical History Allergies/Adverse Reactions: Allergies Allergy/AdvReac Type Severity Reaction Status Date / Time No Known Allergies Allergy Verified 06/24/19 09:47 Home Medications: Ambulatory Orders Aspirin [ASA -] 81 mg PO DAILY 03/15/16 Multivitamin [Poly-Vitamin] 1 tab PO DAILY 03/15/16 Vitamin B Complex 1 each PO DAILY 03/15/16 Sennosides [Senna -] 1 tab PO HS tablet 11/21/17 Acetaminophen 325 mg PO QID PRN 12/15/17 Brad/D3/Mag11/Zinc/Diversified Crops Supervisor/Gurdeep/Bor [Caltrate 600+D Plus Tablet] 1 each PO BID 12/15/17 Clopidogrel Bisulfate [Plavix] 75 mg PO DAILY 12/15/17 Docusate Sodium [Move It Along] 300 mg PO HS 12/15/17 Famotidine [Pepcid] 20 mg PO BID 12/15/17 Lytes/Yerba Nuha [Mouthkote Solution -] 1 applic MM TID 12/15/17 metFORMIN HCL [Glucophage -] 500 mg PO BID 12/15/17 Donepezil HCl [Aricept -] 10 mg PO HS tablet 03/14/19 Rosuvastatin [Crestor -] 20 mg PO HS #30 tablet 03/14/19 Valsartan [Diovan] 40 mg PO DAILY #30 tablet 03/16/19 Anemia: No Asthma: No CVA: Yes (2017) COPD: No Dementia: Yes Diabetes: Yes HTN: Yes Hypercholesterolemia: Yes - Surgical History Orthopedic Surgery: Yes (hip replacement) - Immunization History Immunization Up to Date: Yes - Psycho-Social/Smoking History Smoking History: Never smoked Have you smoked in the past 12 months: No If you are a former smoker, when did you quit?: 50 YRS AGO - Substance Abuse Hx (Audit-C & DAST Scrn) How often the patient has a drink containing alcohol: Never Score: In Men: 4 or > Positive; In Women: 3 or > Positive: 0 Screen Result (Pos requires Nsg. Audit-10AR): Negative *Physical Exam - Vital Signs Last Vital Signs Temp Pulse Resp BP Pulse Ox 98.0 F 67 20 109/52 L 99 01/19/20 13:31 01/19/20 13:31 01/19/20 13:31 01/19/20 13:31 01/19/20 13:31 Heart Score/ECG Review - ECG Intrepretation Comment:: 01/19/20 15:38 EKG: No acute ST elevations or t wave inversions Sinus rhythm Vent rate 65bpm, NC interval 170ms, QRS duration 72ms, QT/QTc: 420/436 Discharge - Discharge Information Problems reviewed: Yes Clinical Impression/Diagnosis: Fall Qualifiers: Encounter type: initial encounter Qualified Code(s): W19.XXXA - Unspecified fall, initial encounter Condition: Stable Disposition: HOME - Admission No - Follow up/Referral Referrals: Juana Young MD [Primary Care Provider] - - Patient Discharge Instructions Patient Printed Discharge Instructions: How to Prevent Falls Additional Instructions: You were seen in the ED today because of a fall. We did scans of your head and neck. There were no intracranial bleeds or fractures in your neck. Please follow up with your primary care physician in the next week. Please return to the ED with any new or worsening symptoms. Return if you feel as though there is a change in baseline, severe headache, N/V or any neurologic deficits. - Post Discharge Activity
--- NOTE | 2020-01-19 15:09 | PDOC ---
Documentation entered by Mignon Silva SCRIBE, acting as scribe for Usha Callahan MD. Usha Callahan MD: This documentation has been prepared by the scribe, iMgnon Silva SCRIBE, under my direction and personally reviewed by me in its entirety. I confirm that the documentation accurately reflects all work, treatment, procedures, and medical decision making performed by me. Attending Attestation - Resident Resident Name: Marifer Banks - ED Attending Attestation I have performed the following: I have examined & evaluated the patient, The case was reviewed & discussed with the resident, I agree w/resident's findings & plan, Exceptions are as noted - HPI HPI: 01/19/20 13:51 Patient is an 89 year old female with a significant past medical history of infarcts (2 years ago), diabetes, alzheimers dementia, who presents to the ED, BIBA, with a fall from earlier today and an abrasion above her left eye. Per the patient's daughter, the patient fell in an attempt to slide sideways from off her hair to get onto the cough. Patient was found trying to get up by herself. Patient stated that she hit her head but both her and the daughter deny any LOC. Patient denies: any current pain, headache, SOB, chest pain, abdominal pain, or any other related symptoms. Allergies: NKDA - Physicial Exam PE: GENERAL: Awake, alert, and fully oriented, in no acute distress HEAD: +Contusion above the R eye EYES: PERRLA, EOMI, sclera anicteric, conjunctiva clear ENT: Auricles normal inspection, hearing grossly normal, nares patent, oropharynx clear without exudates. Moist mucosa NECK: Normal ROM, supple, no lymphadenopathy, JVD, or masses LUNGS: Breath sounds equal, clear to auscultation bilaterally. No wheezes, and no crackles HEART: Regular rate and rhythm, normal S1 and S2, no murmurs, rubs or gallops ABDOMEN: Soft, nontender, normoactive bowel sounds. No guarding, no rebound. No masses EXTREMITIES: Normal range of motion, no edema. No clubbing or cyanosis. No cords, erythema, or tenderness NEUROLOGICAL: Cranial nerves II through XII grossly intact. Normal speech, normal gait. Motor and sensation intact SKIN: Warm, dry, normal turgor, no rashes or lesions noted. - Medical Decision Making Pt s/p fall, with contusion to the R eye. Will obtain CTH and c-spine, DC home if nl. Discharge - Discharge Information Problems reviewed: Yes Clinical Impression/Diagnosis: Fall Qualifiers: Encounter type: initial encounter Qualified Code(s): W19.XXXA - Unspecified fall, initial encounter Condition: Stable Disposition: HOME - Follow up/Referral Referrals: Juana Young MD [Primary Care Provider] - - Patient Discharge Instructions Patient Printed Discharge Instructions: How to Prevent Falls Additional Instructions: You were seen in the ED today because of a fall. We did scans of your head and neck. There were no intracranial bleeds or fractures in your neck. Please follow up with your primary care physician in the next week. Please return to the ED with any new or worsening symptoms. Return if you feel as though there is a change in baseline, severe headache, N/V or any neurologic deficits. - Post Discharge Activity
[2020-01-19 16:06] VITALS: BP 112/56; PULSE 69; TEMP 97.9
--- NOTE | 2020-01-20 18:24 | EKG ---
Test Reason : Blood Pressure : / mmHG Vent. Rate : 065 BPM Atrial Rate : 065 BPM P-R Int : 170 ms QRS Dur : 072 ms QT Int : 420 ms P-R-T Axes : 041 -09 042 degrees QTc Int : 436 ms NORMAL SINUS RHYTHM NONSPECIFIC ST AND T WAVE ABNORMALITY ABNORMAL ECG WHEN COMPARED WITH ECG OF 11-MAR-2019 16:48, NO SIGNIFICANT CHANGE WAS FOUND Confirmed by PABLO CURIEL MD ([id number]) on 01/20/2020 6:24:16 PM Referred By: Confirmed By:PABLO CURIEL MD
== END 2020-01-19 16:07 | disposition home or self-care (01) ==
LOC: JER 13:18
DX: S00.81XA Abrasion of other part of head, initial encounter (principal)
CPT/HCPCS: 70450-TC; 72125-TC; 93005; 93010; 99285-25

== ENCOUNTER 2021-07-04 11:28 | Inpatient (IN) | payer OTHER ==
[2021-07-04 11:50] VITALS: BMI 22.3
[2021-07-04] MEDS ORDERED: HYDROmorphone HCL CARPU-JECT 2 MG/1 ML DISP.SYRIN IVPUSH ONE (12:17)
[2021-07-04] MEDS ORDERED: HYDROmorphone HCl 2 MG/ML VIAL ONE (12:24)
[2021-07-04] MEDS ORDERED: ONDANSETRON 4 MG/2 ML VIAL IVPUSH ONE (12:47)
[2021-07-04] MEDS ORDERED: ONDANSETRON 4 MG/2 ML VIAL ONE (12:49)
[2021-07-04 13:25] LABS: ALBUMIN 3.4 g/dl (3.4-5.0); BLOOD UREA NITROGEN 13.4 mg/dL (7-18); CALCIUM 9.5 mg/dL (8.5-10.1)
[2021-07-04 13:29] LABS: BILIRUBIN,TOTAL 0.3 mg/dL (0.2-1); CREATININE 1.1 mg/dL (0.55-1.3)
[2021-07-04] MEDS ORDERED: SODIUM CHLORIDE 0.9% 500 ML INFUS.BAG IV ONE (13:48)
[2021-07-04 13:52] LABS: BASO % 0.4 % (0-2.0); EOS % 0.7 % (0-4.5); HEMATOCRIT 29.1 % (32.4-45.2); HEMOGLOBIN 9.6 GM/dL (10.7-15.3); LYMPH % 14.1 % (8-40); MCH 30.2 pg (25.7-33.7); MCHC 32.9 g/dl (32.0-36.0); MEAN CELL VOLUME 91.7 fl (80-96); MEAN PLT VOLUME 10.2 fl (7.5-11.1); MONO % 7.9 % (3.8-10.2); NEUT % 76.9 % (42.8-82.8); PLATELET COUNT 165 10^3/uL (134-434); RBC 3.17 M/mm3 (3.60-5.2); RDW 14.6 % (11.6-15.6); WHITE BLOOD COUNT 8.2 K/mm3 (4.0-10.0)
[2021-07-04] MEDS ORDERED: ACETAMINOPHEN 500 MG TABLET (FP) PO ONE (17:37)
[2021-07-04] MEDS ORDERED: ACETAMINOPHEN 500 MG TABLET (FP) ONE (18:07)
[2021-07-04] MEDS ORDERED: DEXTROSE 5%-NORMAL SALINE 1,000 ML IV SCH (22:00)
[2021-07-04] MEDS ORDERED: FAMOTIDINE 20 MG TABLET ONE (22:43)
[2021-07-04] MEDS ORDERED: DOCUSATE SODIUM 100 MG CAPSULE (FP) PO ONE (22:44)
[2021-07-04] MEDS ORDERED: SENNOSIDES 8.6MG TABLET (FP) PO ONE (22:44)
[2021-07-04] MEDS ORDERED: DONEPEZIL HCL 5 MG TABLET (FP) ONE (22:44)
[2021-07-04] MEDS: DONEPEZIL HCL 10 MG TABLET (FP) PO SCH (22:54)
[2021-07-04] MEDS: DOCUSATE SODIUM 100 MG CAPSULE (FP) PO SCH (22:54)
[2021-07-04] MEDS: SENNOSIDES 8.6MG TABLET (FP) PO SCH (22:55)
[2021-07-04] MEDS: FAMOTIDINE 20 MG TABLET PO SCH (22:55)
[2021-07-04] MEDS: INSULIN SLIDING SCALE (NOVOLOG) 1 VIAL SQ SCH (22:56)
[2021-07-04] MEDS: ROSUVASTATIN CA 20 MG TABLET PO SCH (23:32)
[2021-07-05] MEDS ORDERED: ACETAMINOPHEN 1000 MG/100 ML BAG IVPB PRN ×2 (00:01)
[2021-07-05] MEDS: INSULIN SLIDING SCALE (NOVOLOG) 1 VIAL SQ SCH ×4 (04:42→22:52)
[2021-07-05 08:42] LABS: BASO % 0.3 % (0-2.0); EOS % 0.8 % (0-4.5); HEMATOCRIT 26.9 % (32.4-45.2); HEMOGLOBIN 8.9 GM/dL (10.7-15.3); LYMPH % 12.4 % (8-40); MCH 30.6 pg (25.7-33.7); MCHC 33.3 g/dl (32.0-36.0); MEAN CELL VOLUME 91.9 fl (80-96); MEAN PLT VOLUME 9.6 fl (7.5-11.1); MONO % 10.8 % (3.8-10.2); NEUT % 75.7 % (42.8-82.8); PLATELET COUNT 128 10^3/uL (134-434); RBC 2.92 M/mm3 (3.60-5.2); RDW 14.4 % (11.6-15.6); WHITE BLOOD COUNT 7.4 K/mm3 (4.0-10.0)
[2021-07-05 08:43] LABS: INR 1.34 (0.83-1.09); PROTHROMBIN TIME (PATIENT) 15.5 SEC (9.7-13.0)
[2021-07-05 08:46] LABS: ACTIVATED PTT 32.7 SECONDS (25.2-36.5)
[2021-07-05 08:53] LABS: BLOOD UREA NITROGEN 12.4 mg/dL (7-18); CALCIUM 8.7 mg/dL (8.5-10.1); MAGNESIUM 1.5 mg/dL (1.8-2.4)
[2021-07-05 08:56] LABS: PHOSPHOROUS 2.7 mg/dL (2.5-4.9)
[2021-07-05] MEDS: VALSARTAN 40 MG TABLET PO SCH (12:41)
[2021-07-05] MEDS: MULTIVITAMINS (DAILY MVI) TABLET (FP) PO SCH (12:41)
[2021-07-05] MEDS: FAMOTIDINE 20 MG TABLET PO SCH ×2 (12:42→21:46)
[2021-07-05] MEDS: VITAMIN B COMPLEX W/C COMBO TABLET (FP) PO SCH (12:42)
[2021-07-05] MEDS: ENOXAPARIN NA (PORCINE) 60 MG/0.6 ML DISP.SYRIN SQ SCH (12:42)
[2021-07-05] MEDS ORDERED: IRON SUCROSE INJECTION 300 MG in SODIUM CHLORIDE 235 ML IVPB ONE (15:08)
[2021-07-05] MEDS: metFORMIN HCL 500 MG TABLET (FP) PO SCH (16:43)
[2021-07-05] MEDS ORDERED: MAGNESIUM 2GM/50ML STERILE WATER IVPB IVPB ONE (17:35)
[2021-07-05] MEDS: MAGNESIUM OXIDE 400 MG TABLET (FP) PO SCH (21:46)
[2021-07-05] MEDS: ROSUVASTATIN CA 20 MG TABLET PO SCH (21:46)
[2021-07-05] MEDS: SENNOSIDES 8.6MG TABLET (FP) PO SCH (21:46)
[2021-07-05] MEDS: DOCUSATE SODIUM 100 MG CAPSULE (FP) PO SCH (21:46)
[2021-07-05] MEDS: DONEPEZIL HCL 10 MG TABLET (FP) PO SCH (21:46)
[2021-07-06] MEDS: INSULIN SLIDING SCALE (NOVOLOG) 1 VIAL SQ SCH ×4 (05:35→22:08)
[2021-07-06] MEDS: metFORMIN HCL 500 MG TABLET (FP) PO SCH ×2 (06:22→17:08)
[2021-07-06 09:03] LABS: HEMATOCRIT 27.7 % (32.4-45.2); HEMOGLOBIN 9.2 GM/dL (10.7-15.3); MCH 30.6 pg (25.7-33.7); MCHC 33.4 g/dl (32.0-36.0); MEAN CELL VOLUME 91.5 fl (80-96); MEAN PLT VOLUME 10.6 fl (7.5-11.1); PLATELET COUNT 133 10^3/uL (134-434); RBC 3.02 M/mm3 (3.60-5.2); RDW 14.9 % (11.6-15.6); WHITE BLOOD COUNT 7.7 K/mm3 (4.0-10.0)
[2021-07-06 09:26] LABS: CALCIUM 8.8 mg/dL (8.5-10.1)
[2021-07-06 09:27] LABS: ALBUMIN 2.9 g/dl (3.4-5.0); BLOOD UREA NITROGEN 12.3 mg/dL (7-18)
[2021-07-06 09:31] LABS: BILIRUBIN,TOTAL 0.5 mg/dL (0.2-1)
[2021-07-06] MEDS: MULTIVITAMINS (DAILY MVI) TABLET (FP) PO SCH (10:23)
[2021-07-06] MEDS: ASPIRIN 81 MG CHEWABLE TABLETS PO SCH (10:23)
[2021-07-06] MEDS: CLOPIDOGREL BISULFATE 75 MG TABLET (FP) PO SCH (10:23)
[2021-07-06] MEDS: MAGNESIUM OXIDE 400 MG TABLET (FP) PO SCH (10:23)
[2021-07-06] MEDS: VITAMIN B COMPLEX W/C COMBO TABLET (FP) PO SCH (10:23)
[2021-07-06] MEDS: VALSARTAN 40 MG TABLET PO SCH (10:23)
[2021-07-06] MEDS: ENOXAPARIN NA (PORCINE) 60 MG/0.6 ML DISP.SYRIN SQ SCH (10:24)
[2021-07-06] MEDS: FAMOTIDINE 20 MG TABLET PO SCH ×2 (10:24→22:08)
[2021-07-06] MEDS: ACETAMINOPHEN 1000 MG/100 ML BAG IVPB PRN ×2 (10:51→17:08)
[2021-07-06] MEDS ORDERED: INSULIN (NOVOLOG) ASPART 100 UNITS/ML 10ML VIAL ONE (20:45)
[2021-07-06] MEDS: DONEPEZIL HCL 10 MG TABLET (FP) PO SCH (22:08)
[2021-07-06] MEDS: ROSUVASTATIN CA 20 MG TABLET PO SCH (22:08)
[2021-07-06] MEDS: DOCUSATE SODIUM 100 MG CAPSULE (FP) PO SCH (22:08)
[2021-07-06] MEDS: SENNOSIDES 8.6MG TABLET (FP) PO SCH (22:08)
[2021-07-07] MEDS: INSULIN SLIDING SCALE (NOVOLOG) 1 VIAL SQ SCH ×4 (04:29→22:40)
[2021-07-07] MEDS: metFORMIN HCL 500 MG TABLET (FP) PO SCH ×2 (06:06→17:18)
[2021-07-07] MEDS: ACETAMINOPHEN 1000 MG/100 ML BAG IVPB PRN (11:00)
[2021-07-07] MEDS: FAMOTIDINE 20 MG TABLET PO SCH ×2 (11:03→22:40)
[2021-07-07] MEDS: MAGNESIUM OXIDE 400 MG TABLET (FP) PO SCH (11:03)
[2021-07-07] MEDS: MULTIVITAMINS (DAILY MVI) TABLET (FP) PO SCH (11:04)
[2021-07-07] MEDS: VITAMIN B COMPLEX W/C COMBO TABLET (FP) PO SCH (11:04)
[2021-07-07] MEDS: ASPIRIN 81 MG CHEWABLE TABLETS PO SCH (11:04)
[2021-07-07] MEDS: CLOPIDOGREL BISULFATE 75 MG TABLET (FP) PO SCH (11:05)
[2021-07-07] MEDS: ENOXAPARIN NA (PORCINE) 60 MG/0.6 ML DISP.SYRIN SQ SCH (11:05)
[2021-07-07] MEDS: VALSARTAN 40 MG TABLET PO SCH (11:05)
[2021-07-07] MEDS: ROSUVASTATIN CA 20 MG TABLET PO SCH (22:40)
[2021-07-07] MEDS: DONEPEZIL HCL 10 MG TABLET (FP) PO SCH (22:40)
[2021-07-07] MEDS: DOCUSATE SODIUM 100 MG CAPSULE (FP) PO SCH (22:40)
[2021-07-07] MEDS: SENNOSIDES 8.6MG TABLET (FP) PO SCH (22:40)
[2021-07-08] MEDS: INSULIN SLIDING SCALE (NOVOLOG) 1 VIAL SQ SCH ×4 (04:42→21:21)
[2021-07-08] MEDS: metFORMIN HCL 500 MG TABLET (FP) PO SCH ×3 (06:18→17:27)
[2021-07-08] MEDS: MAGNESIUM OXIDE 400 MG TABLET (FP) PO SCH (11:25)
[2021-07-08] MEDS: CLOPIDOGREL BISULFATE 75 MG TABLET (FP) PO SCH (11:25)
[2021-07-08] MEDS: ASPIRIN 81 MG CHEWABLE TABLETS PO SCH (11:25)
[2021-07-08] MEDS: VITAMIN B COMPLEX W/C COMBO TABLET (FP) PO SCH (11:25)
[2021-07-08] MEDS: MULTIVITAMINS (DAILY MVI) TABLET (FP) PO SCH (11:25)
[2021-07-08] MEDS: VALSARTAN 40 MG TABLET PO SCH (11:25)
[2021-07-08] MEDS: FAMOTIDINE 20 MG TABLET PO SCH ×2 (11:25→21:15)
[2021-07-08] MEDS: ENOXAPARIN NA (PORCINE) 60 MG/0.6 ML DISP.SYRIN SQ SCH (11:26)
[2021-07-08] MEDS: ACETAMINOPHEN 1000 MG/100 ML BAG IVPB PRN (11:41)
[2021-07-08] MEDS ORDERED: ACETAMINOPHEN 325 MG TABLET (FP) PO PRN (11:51)
[2021-07-08] MEDS: DOCUSATE SODIUM 100 MG CAPSULE (FP) PO SCH (21:15)
[2021-07-08] MEDS: DONEPEZIL HCL 10 MG TABLET (FP) PO SCH (21:15)
[2021-07-08] MEDS: SENNOSIDES 8.6MG TABLET (FP) PO SCH (21:15)
[2021-07-08] MEDS: ROSUVASTATIN CA 20 MG TABLET PO SCH (21:16)
[2021-07-09] MEDS: INSULIN SLIDING SCALE (NOVOLOG) 1 VIAL SQ SCH ×2 (04:22→11:30)
[2021-07-09] MEDS: metFORMIN HCL 500 MG TABLET (FP) PO SCH (07:04)
[2021-07-09] MEDS: VALSARTAN 40 MG TABLET PO SCH (11:21)
[2021-07-09] MEDS: FAMOTIDINE 20 MG TABLET PO SCH (11:22)
[2021-07-09] MEDS: VITAMIN B COMPLEX W/C COMBO TABLET (FP) PO SCH (11:22)
[2021-07-09] MEDS: ENOXAPARIN NA (PORCINE) 60 MG/0.6 ML DISP.SYRIN SQ SCH (11:23)
[2021-07-09] MEDS: MAGNESIUM OXIDE 400 MG TABLET (FP) PO SCH (11:23)
[2021-07-09] MEDS: CLOPIDOGREL BISULFATE 75 MG TABLET (FP) PO SCH (11:23)
[2021-07-09] MEDS: ASPIRIN 81 MG CHEWABLE TABLETS PO SCH (11:23)
[2021-07-09] MEDS: MULTIVITAMINS (DAILY MVI) TABLET (FP) PO SCH (11:23)
[2021-07-09 12:18] VITALS: BP 126/52; PULSE 69; TEMP 97.9
== END 2021-07-09 12:22 | DRG 640 ==
LOC: JERFT 11:28 → JER 11:28 → JERBED 20:56 → J7W 07-05 03:43
PROVIDERS: ADMIT Hospitalist; ATTEND Family Medicine
DX: E83.42 Hypomagnesemia (principal); S72.112A Displaced fracture of greater trochanter of left femur, initial encounter for closed fracture; M97.02XA Periprosthetic fracture around internal prosthetic left hip joint, initial encounter; G30.9 Alzheimer's disease, unspecified; F02.80 Dementia in other diseases classified elsewhere, unspecified severity, without behavioral disturbance, psychotic disturbance, mood disturbance, and anxiety; I10 Essential (primary) hypertension; E78.5 Hyperlipidemia, unspecified; E11.9 Type 2 diabetes mellitus without complications; Z86.73 Personal history of transient ischemic attack (TIA), and cerebral infarction without residual deficits; Z96.643 Presence of artificial hip joint, bilateral; W18.39XA Other fall on same level, initial encounter; Y92.89 Other specified places as the place of occurrence of the external cause
CPT/HCPCS: 36415; 72170-TC-FY; 72192-TC; 73502-TC-LT-FY; 73560-TC-LT-FY; 80048; 80053; 82728; 82962; 83036; 83540; 83550; 83735; 84100; 85025; 85027; 85610; 85730; 86850; 86900; 86901; 93005; 93010; 97116-GP; 97162-GP; 99285-25; C9803; J1756; U0003; U0005